=== PATIENT | female | born 1925 | race Caucasian/White ===

== ENCOUNTER 2016-11-17 13:00 | Inpatient (IN) | payer OTHER ==
[2016-11-17 13:07] VITALS: BMI 25.4
[2016-11-17] MEDS ORDERED: AZITHROMYCIN 500 MG VIAL IVPB ONE (13:15)
[2016-11-17] MEDS ORDERED: cefTRIAXone SODIUM 1 GM VIAL ONE (13:15)
[2016-11-17] MEDS ORDERED: CEFTRIAXONE 1 GM in DEXTROSE 5%-WATER - 100 ML IVPB ONE ×2 (13:23→13:27)
[2016-11-17] MEDS ORDERED: AZITHROMYCIN IVPB 500 MG in DEXTROSE 5%-WATER - 250 ML IVPB ONE (13:27)
--- NOTE | 2016-11-17 13:33 | PDOC ---
History of Present Illness - General Chief Complaint: Respiratory Stated Complaint: COUGH Time Seen by Provider: 11/17/16 13:09 History Source: Patient Exam Limitations: No Limitations - History of Present Illness Initial Comments: 11/17/16 13:28 89 y/o female presents with cough for 2 weeks. Patient has a PMHx of HTN and Hyperlipidemia states that she has had a cough for 2 weeks and worsening over the past week. Patient went to her PCP who prescribed her cough medication and nasal spray without relief. She went back to her PCP ( Dr. Laguna) this morning and was found to have B/L upper lobe infiltrates on CXR and she sent her to the ED for IV antibiotics. Patient currently complaining of shortness of breath that is worse with taking a deep breath. She denies fever, chills, chest pain, abdominal pain, n/v/d. Past History - Past Medical History Allergies/Adverse Reactions: Allergies Allergy/AdvReac Type Severity Reaction Status Date / Time No Known Allergies Allergy Verified 11/17/16 13:04 Home Medications: Ambulatory Orders Hydrochlorothiazide [Hctz -] 12.5 mg PO DAILY 11/17/16 Lovastatin [Altoprev] 40 mg PO DAILY 11/17/16 Olmesartan Medoxomil 20 mg PO DAILY 11/17/16 HTN: Yes Hypercholesterolemia: Yes - Psycho/Social/Smoking Cessation Hx Suicidal Ideation: No Smoking History: Never smoked Information on smoking cessation initiated: No Hx Alcohol Use: (nightly) Respiratory Specific PMHX - Complaint Specific PMHX Bronchitis: No Pneumonia: No Pulmonary Embolus: No TB (Tuberculosis): No Review of Systems - Review of Systems Constitutional: Yes: Weakness. No: Chills, Fever HEENTM: No: Blurred Vision, Double Vision Respiratory: Yes: Shortness of Breath Cardiac (ROS): No: Chest Pain, Lightheadedness, Syncope ABD/GI: No: Diarrhea, Nausea, Vomiting Musculoskeletal: No: Muscle Weakness Neurological: No: Headache, Unsteady Gait, Dizziness Psychiatric: No: Depression Hematologic/Lymphatic: No: Easy Bruising *Physical Exam - Vital Signs Last Vital Signs Temp Pulse Resp BP Pulse Ox 98.4 F 94 H 20 143/74 92 L 11/17/16 13:00 11/17/16 13:00 11/17/16 13:00 11/17/16 13:00 11/17/16 13:00 - Physical Exam General Appearance: Yes: Appropriately Dressed, Other (weak) HEENT: positive: EOMI, MANPREET, Normal ENT Inspection Neck: positive: Trachea midline, Supple Respiratory/Chest: positive: Decreased Breath Sounds, Crackles (upper lobes (R>L )). negative: Respiratory Distress, Accessory Muscle Use Cardiovascular: positive: Regular Rhythm, Regular Rate Lymphatic: negative: Adenopathy Musculoskeletal: positive: Normal Inspection Extremity: positive: Normal Capillary Refill Integumentary: positive: Normal Color, Dry, Warm Neurologic: positive: axle bearing polisher II-XII NML intact, Fully Oriented, Alert, Normal Mood/ Affect, Normal Response, Motor Strength 08/22 ED Treatment Course - LABORATORY CBC & Chemistry Diagram: 11/17/16 13:41 11/17/16 13:41 - RADIOLOGY Radiology Studies Ordered: Category Date Time Status CHEST PA & LAT [RAD] Stat Radiology 11/17/16 13:21 Ordered Medical Decision Making - Medical Decision Making 11/17/16 13:36 89 y/o with cough x 2 weeks sent by PCP Dr. Laguna for B/L upper lobe infiltrates on CXR in office this am CBC, CMP, PT/INR, Blood culture, ua, urine culture, EKG, CXR IV Rocephin 1 gm and Zithromax 500mg IV fluids Admit for infiltrates. r/o pneumonia 11/17/16 13:39 *DC/Admit/Observation/Transfer Diagnosis at time of Disposition: Pneumonia Qualifiers: Pneumonia type: due to unspecified organism Laterality: bilateral Lung location : upper lobe of lung Qualified Code(s): J18.9 - Pneumonia, unspecified organism - Discharge Dispostion Condition at time of disposition: Improved Admit: Yes - Referrals Referrals: Gene Camarena MD [Primary Care Provider] -
[2016-11-17 14:03] LABS: MCH 32.2 pg (25.7-33.7); MCHC 35.2 g/dl (32.0-36.0); MEAN CELL VOLUME 91.3 fl (80-96); MEAN PLT VOLUME 8.2 fl (7.5-11.1); PLATELET COUNT 306 K/MM3 (134-434); RDW 12.8 % (11.6-15.6); WHITE BLOOD COUNT 8.8 K/mm3 (4.0-10.8)
[2016-11-17 14:20] LABS: INR 1.31 (0.82-1.09); PROTHROMBIN TIME (PATIENT) 14.6 SEC (10.2-13.0)
[2016-11-17 14:25] LABS: ALBUMIN 2.5 g/dl (3.5-5.0); ALK PHOS 91 U/L (32-92); ANION GAP 12 (8-16); BILIRUBIN,TOTAL 1.1 mg/dl (0.2-1.0); CALCIUM 8.3 mg/dl (8.4-10.2); CO2 21 mmol/L (22-28); CREATININE 0.5 mg/dl (0.6-1.3); GLUCOSE,RANDOM 181 mg/dl (74-106); SGOT/AST 40 U/L (10-42); SGPT/ALT 45 U/L (10-40); TOT PROT 5.6 g/dl (6.4-8.3)
[2016-11-17 16:15] LABS: PH,URINE 6.5 (4.5-8); URINE APPEARANCE Clear; URINE BILIRUBIN Negative (NEGATIVE); URINE BLOOD 2+ (NEGATIVE); URINE COLOR YELLOW; URINE GLUCOSE (UA) Negative (NEGATIVE); URINE KETONE Negative (NEGATIVE); URINE LEUK ESTERASE Negative (NEGATIVE); URINE NITRITE Negative (NEGATIVE); URINE PROTEIN 2+ (NEGATIVE); URINE UROBILINOGEN >=8.0 E.U./dl (0.2-1.0)
[2016-11-17] MEDS ORDERED: SODIUM CHLORIDE 1,000 ML IV ONE (18:15)
[2016-11-17] MEDS ORDERED: POTASSIUM CHLORIDE TABS 20 MEQ TABLET.ER (FP) PO ONE (20:01)
[2016-11-17 20:11] LABS: ANION GAP 11 (8-16); CO2 22 mmol/L (22-28); CREATININE 0.5 mg/dl (0.6-1.3); GLUCOSE,RANDOM 150 mg/dl (74-106)
[2016-11-17] MEDS ORDERED: ACETAMINOPHEN 325 MG TABLET (FP) PO ONE (20:24)
--- NOTE | 2016-11-17 21:50 | HP ---
CHIEF COMPLAINT: cough PCP: Dr. Camarena HISTORY OF PRESENT ILLNESS: This is an 89 year old female with a past medical history of HTN and HLD who presented to [facility] ED from her PCP office with cough x 2 weeks. Seen by PCP last week, started on robitussin but continued to worsen. Pt developed diarrhea today and was feeling more weak so she went back to her PCP who did an xray and diagnosed her with B/L PNA and sent her to the ED. Pt reports feeling better at the time of her exam. Her weakness has improved. Pt denies drinking large quantities of water recently but does report not sleeping well and she has not been taking her medications regularly for the past 3-4 days. Her last week. She had been caring for him at home. Pt does report that she "always has a cough" but this has been worse. ER course was notable for: (1) Hyponatremia- sodium 115 (2) WBC WNL (3) CXR c/w B/L upper lobe PNA Recent Travel: pt denies PAST MEDICAL HISTORY: HTN HLD PAST SURGICAL HISTORY: pt denies Social History: Smoking: pt denies Alcohol: pt denies Drugs: pt denies Family History: mom age 104, complications following hip fracture father age 82, prostate and bladder CA brother in his 70s, unknown type of CA Allergies No Known Allergies Allergy (Verified 11/17/16 13:04) HOME MEDICATIONS: 3 Medication Instructions Recorded Hydrochlorothiazide [Hctz -] 12.5 mg PO DAILY 11/17/16 Lovastatin [Altoprev] 40 mg PO DAILY 11/17/16 Olmesartan Medoxomil 20 mg PO DAILY 11/17/16 REVIEW OF SYSTEMS CONSTITUTIONAL: Present: generalized weakness, malaise, loss of appetite Absent: fever, chills, diaphoresis, weight change HEENT: Absent: rhinorrhea, nasal congestion, throat pain, throat swelling, difficulty swallowing, mouth swelling, ear pain, eye pain, visual changes CARDIOVASCULAR: Absent: chest pain, syncope, palpitations, irregular heart rate, lightheadedness , peripheral edema RESPIRATORY: Present: cough, shortness of breath Absent: dyspnea with exertion, orthopnea, wheezing, stridor, hemoptysis GASTROINTESTINAL: Absent: abdominal pain, abdominal distension, nausea, vomiting, diarrhea, constipation, melena, hematochezia GENITOURINARY: Absent: dysuria, frequency, urgency, hesitancy, hematuria, flank pain, genital pain MUSCULOSKELETAL: Absent: myalgia, arthralgia, joint swelling, back pain, neck pain SKIN: Absent: rash, itching, pallor HEMATOLOGIC/IMMUNOLOGIC: Absent: easy bleeding, easy bruising, lymphadenopathy, frequent infections ENDOCRINE: Absent: unexplained weight gain, unexplained weight loss, heat intolerance, cold intolerance NEUROLOGIC: Absent: headache, focal weakness or paresthesias, dizziness, unsteady gait, seizure, mental status changes, bladder or bowel incontinence PSYCHIATRIC: Absent: anxiety, depression, suicidal or homicidal ideation, hallucinations. PHYSICAL EXAMINATION Vital Signs - 24 hr 3 11/17/16 11/17/16 11/17/16 11/17/16 13:00 13:05 17:01 20:36 Temperature 98.4 F 99.6 F 99.6 F Pulse Rate 94 H 71 71 80 Respiratory 20 17 17 Rate Blood Pressure 143/74 133/65 133/65 O2 Sat by Pulse 92 L 97 97 Oximetry (%) GENERAL: Awake, alert, and fully oriented, in no acute distress. HEAD: Normal with no signs of trauma. EYES: Pupils equal, round and reactive to light, extraocular movements intact, sclera anicteric, conjunctiva clear. No lid lag. EARS, NOSE, THROAT: Ears normal, nares patent, oropharynx clear without exudates. Moist mucous membranes. NECK: Normal range of motion, supple without lymphadenopathy, JVD, or masses. LUNGS: Breath sounds equal, scattered crackles bilaterally, clear with cough. No wheezes. No accessory muscle use. HEART: Regular rate and rhythm, normal S1 and S2 without murmur, rub or gallop. ABDOMEN: Soft, nontender, not distended, normoactive bowel sounds, no guarding, no rebound, no masses. No hepatomegaly or splenomegaly. MUSCULOSKELETAL: Normal range of motion at all joints. No bony deformities or tenderness. No CVA tenderness. UPPER EXTREMITIES: 2+ pulses, warm, well-perfused. No cyanosis. No clubbing. No peripheral edema. LOWER EXTREMITIES: 2+ pulses, warm, well-perfused. No calf tenderness. No peripheral edema. NEUROLOGICAL: Cranial nerves II-XII intact. Normal speech. Normal gait. PSYCHIATRIC: Cooperative. Good eye contact. Appropriate mood and affect. SKIN: Warm, dry, normal turgor, no rashes or lesions noted, normal capillary refill. Laboratory Results - last 24 hr 3 11/17/16 11/17/16 11/17/16 13:41 13:41 13:41 WBC 8.8 RBC 3.53 L Hgb 11.4 Hct 32.2 L MCV 91.3 MCH 32.2 MCHC 35.2 RDW 12.8 Plt Count 306 MPV 8.2 Neutrophils % 63.0 Lymphocytes % 5.0 L Monocytes % 5.0 Band Neutrophils 27.0 H Platelet Estimate Adequate INR 1.31 H Sodium 115 L* Potassium 3.4 L Chloride 82 L Carbon Dioxide 21 L Anion Gap 12 BUN 8 Creatinine 0.5 L Creat Clearance w eGFR > 60 Random Glucose 181 H Calcium 8.3 L Total Bilirubin 1.1 H AST 40 ALT 45 H Alkaline Phosphatase 91 Total Protein 5.6 L Albumin 2.5 L Urine Color Urine Appearance Urine pH Ur Specific [place] Urine Protein Urine Glucose (UA) Urine Ketones Urine Blood Urine Nitrite Urine Bilirubin Urine Urobilinogen Ur Leukocyte Esterase Urine RBC Urine WBC Urine Bacteria Urine Osmolality Urine Creatinine 3 11/17/16 11/17/16 11/17/16 14:55 19:00 19:40 WBC RBC Hgb Hct MCV MCH MCHC RDW Plt Count MPV Neutrophils % Lymphocytes % Monocytes % Band Neutrophils Platelet Estimate INR Sodium 120 L* Potassium 3.4 L Chloride 87 L Carbon Dioxide 22 Anion Gap 11 BUN 8 Creatinine 0.5 L Creat Clearance w eGFR Random Glucose 150 H Calcium 8.0 L Total Bilirubin AST ALT Alkaline Phosphatase Total Protein Albumin Urine Color Yellow Urine Appearance Clear Urine pH 6.5 Ur Specific [place] 1.015 Urine Protein 2+ H Urine Glucose (UA) Negative Urine Ketones Negative Urine Blood 2+ Urine Nitrite Negative Urine Bilirubin Negative Urine Urobilinogen >=8.0 e.u./dl H Ur Leukocyte Esterase Negative Urine RBC 10-20 Urine WBC 0-2 Urine Bacteria Few Urine Osmolality 218 L Urine Creatinine Radiology Results CHEST PA LAT Chest: Cough Imaging reveals patchy bilateral infiltrates with some atelectasis. There is a prominent mediastinum with unfolded aorta. The is blunting of the right angle. Soft tissues are intact. The degenerative changes with wedging. There are no prior studies for comparison. If findings do not resolve then further imaging with CT is suggested. Impression: Patchy bilateral infiltrates with atelectasis. Reported By: Kirt Lainez MD 11/17/16 1451 ECG Sinus rhythm with PACs, rate 91 QTC 472 LBB ASSESSMENT/PLAN: 89yF with PMH HTN, HLD presented to the ED from her PCP office with B/L PNA. She has been admitted for same. PNA-community acquired - cont azithromycin and ceftriaxone - CT chest ordered - urine for legionella ordered given hyponatremia - pulm consult if not improving. Hyponatremia - DW Dr. Whitley, renal consult appreciated - repeat with sodium of 120, but pt only received 500cc NS, will dc IVF for now, repeat in 3 hours, if same start NS 35cc/hr and repeat at 1am and 4am and adjust IVF accordingly - DC HCTZ - ? SIADH due to recent emotional stress and PNA, will obtain urine sodium, creatinine, osmolality, serum osmolality - 800cc fluid restriction - recommended transfer to [facility] for ICU monitoring, pt declines at this time. HTN - cont olmesartan HLD - home lovastatin 40mg changed to formulary lipitor 10mg as per protocol FEN - NS @ 35 cc/hr - BMP 10pm, 1am, 4am - regular diet as tolerated. DVT PPX - Heparin 5000u BID Dispo: pt currently requires inpatient management of her emergent condition. Addendum: 4AM 1am lab value reported from lab: 127. D/C NS, start D5W @50cc/hr, repeat lab drawn and sent to [facility]. Pt alert, oriented, fully conversant and moving all extremities. 524AM Sodium 130. DW renal, increase D5W at 125cc/hr. Pt agrees to transfer to ICU at [place]. Called Myrna, ICU shoe maker [employer] who accepts pt. Daughter Noah made aware of transfer. Visit type - Emergency Visit Emergency Visit: Yes ED Registration Date: 11/17/16 Care time: The patient presented to the Emergency Department on the above date and was hospitalized for further evaluation of their emergent condition. - New Patient This patient is new to me today: Yes Date on this admission: 11/17/16 - Critical Care Critical Care patient: No
[2016-11-17 21:58] LABS: URINE BACTERIA FEW /hpf (NEGATIVE); URINE WBC 0-2 (3-5)
[2016-11-17] MEDS: HEPARIN NA (PORCINE) 5,000 UNITS/ML 1ML VIAL SQ SCH (22:45)
[2016-11-17 22:48] LABS: ANION GAP 11 (8-16); CO2 22 mmol/L (22-28); CREATININE 0.6 mg/dl (0.6-1.3); GLUCOSE,RANDOM 159 mg/dl (74-106)
[2016-11-17] MEDS ORDERED: SODIUM CHLORIDE 1,000 ML IV SCH (23:15)
[2016-11-17 23:39] LABS: PLATELET ESTIMATE ADEQUATE (NORMAL)
[2016-11-18 03:46] LABS: ANION GAP 10 (8-16); CO2 25 mmol/L (21-32); CREATININE 0.6 mg/dL (0.55-1.02); GLUCOSE,RANDOM 111 mg/dL (74-106)
[2016-11-18] MEDS ORDERED: DEXTROSE 5%-WATER - 1,000 ML IV SCH ×5 (04:30→19:00)
[2016-11-18 05:12] LABS: ANION GAP 10 (8-16); CALCIUM 8.2 mg/dL (8.5-10.1); CO2 28 mmol/L (21-32); CREATININE 0.6 mg/dL (0.55-1.02); GLUCOSE,RANDOM 109 mg/dL (74-106)
[2016-11-18 08:49] LABS: ANION GAP 10 (8-16); CALCIUM 8.1 mg/dl (8.4-10.2); CO2 23 mmol/L (22-28); CREATININE 0.6 mg/dl (0.6-1.3); GLUCOSE,RANDOM 125 mg/dl (74-106)
[2016-11-18 09:39] LABS: ANION GAP 10 (8-16); CALCIUM 8.1 mg/dL (8.5-10.1); CO2 25 mmol/L (21-32); GLUCOSE,RANDOM 108 mg/dL (74-106)
[2016-11-18 09:40] LABS: CREATININE 0.6 mg/dL (0.55-1.02)
[2016-11-18] MEDS ORDERED: CEFTRIAXONE 50 ML IVPB SCH (10:00)
[2016-11-18] MEDS ORDERED: VALSARTAN 160 MG TABLET (UD) PO SCH (10:00)
[2016-11-18] MEDS ORDERED: ATORVASTATIN CA 10 MG TABLET (FP) PO SCH (10:00)
[2016-11-18] MEDS ORDERED: AZITHROMYCIN IVPB 250 ML IVPB SCH (10:00)
[2016-11-18] MEDS: MUPIROCIN 2% TOPICAL OINTMENT FOR DECOLONIZATION NS SCH ×2 (10:06→21:25)
[2016-11-18] MEDS: HEPARIN NA (PORCINE) 5,000 UNITS/ML 1ML VIAL SQ SCH ×2 (10:06→21:23)
[2016-11-18 12:23] LABS: BASOPHIL 0.2 % (0-2.0); EOSINOPHIL 0.2 % (0-4.5); MCHC 35.1 g/dl (32.0-36.0); MEAN PLT VOLUME 7.8 fl (7.5-11.1); PLATELET COUNT 328 K/MM3 (134-434); RDW 13.6 % (11.6-15.6); WHITE BLOOD COUNT 11.3 K/mm3 (4.0-10.0)
--- NOTE | 2016-11-18 13:17 | PN ---
<Bladimir Solares - Last Filed: 11/18/16 13:35> Physical Exam: SUBJECTIVE: Patient seen and examined OBJECTIVE: Vital Signs Period Temp Pulse Resp BP Sys/Argueta Pulse Ox Last 24 Hr 98.2 F-99.6 F 72-86 117-162/53-91 97 GENERAL: The patient is awake, alert, and fully oriented, in no acute distress. HEAD: Normal with no signs of trauma. EYES: PERRL, extraocular movements intact, sclera anicteric, conjunctiva clear. No ptosis. ENT: Ears normal, nares patent, oropharynx clear without exudates, moist mucous membranes. NECK: Trachea midline, full range of motion, supple. LUNGS: Breath sounds equal, clear to auscultation bilaterally, no wheezes, no crackles, no accessory muscle use. HEART: Regular rate and rhythm, S1, S2 without murmur, rub or gallop. ABDOMEN: Soft, nontender, nondistended, normoactive bowel sounds, no guarding, no rebound, no hepatosplenomegaly, no masses. EXTREMITIES: 2+ pulses, warm, well-perfused, no edema. NEUROLOGICAL: Cranial nerves II through XII grossly intact. Normal speech, gait not observed. PSYCH: Normal mood, normal affect. SKIN: Warm, dry, normal turgor, no rashes or lesions noted Laboratory Results - last 24 hr 11/17/16 11/17/16 11/17/16 19:00 19:40 22:00 WBC RBC Hgb Hct MCV MCH MCHC RDW Plt Count MPV Neutrophils % Lymphocytes % Monocytes % Eosinophils % Basophils % Sodium 120 L* Potassium 3.4 L Chloride 87 L Carbon Dioxide 22 Anion Gap 11 BUN 8 Creatinine 0.5 L Random Glucose 150 H Serum Osmolality Calcium 8.0 L Urine Osmolality 218 L Urine Creatinine 32.7 11/17/16 11/17/16 11/18/16 22:30 23:30 00:55 WBC RBC Hgb Hct MCV MCH MCHC RDW Plt Count MPV Neutrophils % Lymphocytes % Monocytes % Eosinophils % Basophils % Sodium 120 L* 127 L Potassium 3.5 3.9 Chloride 87 L 92 L Carbon Dioxide 22 25 Anion Gap 11 10 BUN 9 8 Creatinine 0.6 0.6 Random Glucose 159 H 111 H Serum Osmolality 252 L Calcium 8.0 L 8.0 L Urine Osmolality Urine Creatinine 11/18/16 11/18/16 11/18/16 04:28 06:30 06:50 WBC RBC Hgb Hct MCV MCH MCHC RDW Plt Count MPV Neutrophils % Lymphocytes % Monocytes % Eosinophils % Basophils % Sodium 130 L 128 L 129 L Potassium 4.2 3.7 3.7 Chloride 92 L 95 L 94 L Carbon Dioxide 28 23 25 Anion Gap 10 10 10 BUN 8 9 8 Creatinine 0.6 0.6 0.6 Random Glucose 109 H 125 H D 108 H Serum Osmolality Calcium 8.2 L 8.1 L 8.1 L Urine Osmolality Urine Creatinine 11/18/16 11/18/16 11:00 12:00 WBC 11.3 H RBC 3.32 L Hgb 10.6 L Hct 30.2 L MCV 91.0 MCH 32.0 MCHC 35.1 RDW 13.6 Plt Count 328 MPV 7.8 Neutrophils % 86.0 H Lymphocytes % 5.0 L Monocytes % 8.6 Eosinophils % 0.2 Basophils % 0.2 Sodium 128 L Potassium Chloride Carbon Dioxide Anion Gap BUN Creatinine Random Glucose Serum Osmolality Calcium Urine Osmolality Urine Creatinine Active Medications Generic Name Dose Route Start Last Admin Trade Name Freq PRN Reason Stop Dose Admin Atorvastatin Calcium 10 mg 11/19/16 22:00 Lipitor - PO HS [facility] Chlorhexidine Gluconate 1 applic 11/18/16 22:00 Hibiclens For Decolonization - TP HS [facility] Heparin Sodium (Porcine) 5,000 unit 11/18/16 22:00 Heparin - SQ BID [facility] Azithromycin 250 mls @ 250 mls/hr 11/19/16 10:00 Zithromax 500mg Ivpb (Pre-Docked) IVPB DAILY [facility] Ceftriaxone Sodium 50 mls @ 100 mls/hr 11/19/16 10:00 Rocephin 1gm Ivpb (Pre-Docked) IVPB DAILY [facility] Dextrose 1,000 mls @ 100 mls/hr 11/18/16 13:08 D5w - IV ASDIR [facility] Mupirocin 1 applic 11/18/16 10:00 11/18/16 10:06 Bactroban Ointment (For Decolonization) - NS 11/23/16 09:59 1 applic BID [facility] Administration Valsartan 160 mg 11/19/16 10:00 Diovan - PO DAILY [facility] ASSESSMENT/PLAN: <Nash Marquez - Last Filed: 11/18/16 18:14> Physical Exam: SUBJECTIVE: Patient seen and examined at bedside. Pt has no complaints at all. States she feels very well now. Pt admits to having had cough (unclear if productive of sputum), and nonbloody diarrhea (unclear what quantity) prior to visiting her PCP. Pt denies headache, cp, sob, abd pain, nausea, vomiting dysuria, rash. OBJECTIVE: Vital Signs Period Temp Pulse Resp BP Sys/Argueta Pulse Ox Last 24 Hr 98.2 F-99.6 F 72-86 117-162/53-91 97 GENERAL: The patient is awake, alert, and fully oriented, in no acute distress. HEAD: Normal with no signs of trauma. EYES: PERRL, extraocular movements intact, sclera anicteric, conjunctiva clear. No ptosis. ENT: oropharynx clear without exudates, moist mucous membranes. Dry lips NECK: Trachea midline, full range of motion, supple. LUNGS: Breath sounds equal, clear to auscultation bilaterally, no wheezes, no crackles, no accessory muscle use. HEART: Regular rate and rhythm, S1, S2 without murmur, rub or gallop. ABDOMEN: Soft, nontender, nondistended, normoactive bowel sounds, no guarding, no rebound, no hepatosplenomegaly, no masses. EXTREMITIES: 2+ pulses, warm, well-perfused, no edema. dry axillae NEUROLOGICAL: Cranial nerves II through XII grossly intact. Normal speech, gait not observed. strength 5/5 throughout, sensation intact throughout, reflexes 2+ throughout PSYCH: Normal mood, normal affect. SKIN: Warm, dry, normal turgor, no rashes or lesions noted Laboratory Results - last 24 hr 11/17/16 11/17/16 11/17/16 19:00 19:40 22:00 WBC RBC Hgb Hct MCV MCH MCHC RDW Plt Count MPV Neutrophils % Lymphocytes % Monocytes % Eosinophils % Basophils % Sodium 120 L* Potassium 3.4 L Chloride 87 L Carbon Dioxide 22 Anion Gap 11 BUN 8 Creatinine 0.5 L Random Glucose 150 H Serum Osmolality Calcium 8.0 L Urine Osmolality 218 L Urine Creatinine 32.7 11/17/16 11/17/16 11/18/16 22:30 23:30 00:55 WBC RBC Hgb Hct MCV MCH MCHC RDW Plt Count MPV Neutrophils % Lymphocytes % Monocytes % Eosinophils % Basophils % Sodium 120 L* 127 L Potassium 3.5 3.9 Chloride 87 L 92 L Carbon Dioxide 22 25 Anion Gap 11 10 BUN 9 8 Creatinine 0.6 0.6 Random Glucose 159 H 111 H Serum Osmolality 252 L Calcium 8.0 L 8.0 L Urine Osmolality Urine Creatinine 11/18/16 11/18/16 11/18/16 04:28 06:30 06:50 WBC RBC Hgb Hct MCV MCH MCHC RDW Plt Count MPV Neutrophils % Lymphocytes % Monocytes % Eosinophils % Basophils % Sodium 130 L 128 L 129 L Potassium 4.2 3.7 3.7 Chloride 92 L 95 L 94 L Carbon Dioxide 28 23 25 Anion Gap 10 10 10 BUN 8 9 8 Creatinine 0.6 0.6 0.6 Random Glucose 109 H 125 H D 108 H Serum Osmolality Calcium 8.2 L 8.1 L 8.1 L Urine Osmolality Urine Creatinine 11/18/16 11/18/16 11:00 12:00 WBC 11.3 H RBC 3.32 L Hgb 10.6 L Hct 30.2 L MCV 91.0 MCH 32.0 MCHC 35.1 RDW 13.6 Plt Count 328 MPV 7.8 Neutrophils % 86.0 H Lymphocytes % 5.0 L Monocytes % 8.6 Eosinophils % 0.2 Basophils % 0.2 Sodium 128 L Potassium Chloride Carbon Dioxide Anion Gap BUN Creatinine Random Glucose Serum Osmolality Calcium Urine Osmolality Urine Creatinine Active Medications Generic Name Dose Route Start Last Admin Trade Name Freq PRN Reason Stop Dose Admin Atorvastatin Calcium 10 mg 11/19/16 10:00 Lipitor - PO DAILY [facility] Chlorhexidine Gluconate 1 applic 11/18/16 22:00 Hibiclens For Decolonization - TP HS [facility] Heparin Sodium (Porcine) 5,000 unit 11/18/16 22:00 Heparin - SQ BID [facility] Azithromycin 250 mls @ 250 mls/hr 11/19/16 10:00 Zithromax 500mg Ivpb (Pre-Docked) IVPB DAILY [facility] Ceftriaxone Sodium 50 mls @ 100 mls/hr 11/19/16 10:00 Rocephin 1gm Ivpb (Pre-Docked) IVPB DAILY [facility] Dextrose 1,000 mls @ 100 mls/hr 11/18/16 13:08 D5w - IV ASDIR [facility] Mupirocin 1 applic 11/18/16 10:00 11/18/16 10:06 Bactroban Ointment (For Decolonization) - NS 11/23/16 09:59 1 applic BID [facility] Administration Valsartan 160 mg 11/19/16 10:00 Diovan - PO DAILY [facility] ASSESSMENT/PLAN: This is an 89yF with PMH HTN, HLD presented to the ED from her PCP office with B /L PNA. She has been admitted for same. #PNA-community acquired - cont azithromycin and ceftriaxone - CT chest shows b/l PNA with mild mediastinal LAD - urine for legionella negative - pulm consult if not improving. Hyponatremia: likely volume down with dry lips and axillae in setting of decreased PO intake - DW Dr. Whitley, renal consult appreciated - DC HCTZ -replete fluids gradually #HTN - cont olmesartan #HLD - home lovastatin 40mg changed to formulary lipitor 10mg as per protocol #FEN - NS @ 35 cc/hr - monitor closely. Na level q4h - regular diet as tolerated. #DVT PPX - Heparin 5000u BID Visit type - Emergency Visit Emergency Visit: No - New Patient This patient is new to me today: No - Critical Care Critical Care patient: No - Discharge Referral Referred to [facility] Med P.C[facility] No
--- NOTE | 2016-11-18 13:45 | CONSULT ---
Consult Consult Specialty:: Nephrology Reason for Consultation:: hyponatremia - History of Present Illness Chief Complaint: cough History of Present Illness: Pt is an 89 year old female with pmhx of HTN and hyperlipidemia who presents to the ER complaining of cough for the last two weeks. She was found to have PNA and admitted for treatment. She was also found to be hyponatremic and I was called to evaluate her. She was on a thiazide diuretic however she says that she has not taken it for the last few days. She says she has not had much appetite and is not eating much. She recently lost her less than two weeks ago. She recieved about a total of 650 cc of saline and her sodium corrected rapidly. She was started on d5w to slow the rate of correction. She says she feels well. She denies headache or weakness. She also says that she had several episodes of diarrhea over the last few days. She says she feels much better today. - History Source History Provided By: Patient, Medical Record - Past Medical History Cardio/Vascular: Yes: HTN, Hyperlipdemia ...: No - Alcohol/Substance Use Hx Alcohol Use: Yes (nightly) - Smoking History Smoking history: Never smoked Home Medications - Allergies Allergies/Adverse Reactions: Allergies Allergy/AdvReac Type Severity Reaction Status Date / Time No Known Allergies Allergy Verified 11/17/16 13:04 - Home Medications Home Medications: Ambulatory Orders Hydrochlorothiazide [Hctz -] 12.5 mg PO DAILY 11/17/16 Lovastatin [Altoprev] 40 mg PO DAILY 11/17/16 Olmesartan Medoxomil 20 mg PO DAILY 11/17/16 Family Disease History - Family Disease History Family History: Denies Review of Systems - Review of Systems Constitutional: reports: Loss of Appetite HENT: reports: No Symptoms Neck: reports: No Symptoms Cardiovascular: reports: No Symptoms Respiratory: reports: Cough Gastrointestinal: reports: Diarrhea Genitourinary: reports: No Symptoms Musculoskeletal: reports: No Symptoms Integumentary: reports: No Symptoms Neurological: reports: No Symptoms Endocrine: reports: No Symptoms Hematology/Lymphatic: reports: No Symptoms Psychiatric: reports: No Symptoms Physical Exam Vital Signs: Vital Signs Temperature 98.3 F 11/18/16 10:00 Pulse Rate 84 11/18/16 12:00 Respiratory Rate 17 11/18/16 12:00 Blood Pressure 134/83 08/01/17 12:00 O2 Sat by Pulse Oximetry (%) 97 11/17/16 20:36 Constitutional: Yes: Calm Eyes: Yes: Conjunctiva Clear HENT: Yes: Atraumatic Neck: Yes: Supple Cardiovascular: Yes: S1, S2 Respiratory: Yes: On Nasal O2 Gastrointestinal: Yes: Soft Renal/: Yes: WNL Extremities: Yes: WNL Edema: No Neurological: Yes: Oriented Psychiatric: Yes: Oriented Labs: CBC, BMP 11/18/16 12:00 11/18/16 11:00 Laboratory Tests 11/17/16 11/17/16 11/17/16 13:41 14:55 19:00 WBC Hgb Plt Count Sodium 115 L* Potassium Chloride Carbon Dioxide Anion Gap BUN Creatinine Serum Osmolality Urine Color Yellow Urine Appearance Clear Urine pH 6.5 Ur Specific [place] 1.015 Urine Protein 2+ H Urine Glucose (UA) Negative Urine Ketones Negative Urine Blood 2+ Urine Nitrite Negative Urine Osmolality 218 L 11/17/16 11/17/16 11/17/16 19:40 22:30 23:30 WBC Hgb Plt Count Sodium 120 L* 120 L* Potassium Chloride Carbon Dioxide Anion Gap BUN Creatinine Serum Osmolality 252 L Urine Color Urine Appearance Urine pH Ur Specific [place] Urine Protein Urine Glucose (UA) Urine Ketones Urine Blood Urine Nitrite Urine Osmolality 11/18/16 11/18/16 11/18/16 00:55 04:28 06:30 WBC Hgb Plt Count Sodium 127 L 130 L 128 L Potassium Chloride Carbon Dioxide Anion Gap BUN Creatinine Serum Osmolality Urine Color Urine Appearance Urine pH Ur Specific [place] Urine Protein Urine Glucose (UA) Urine Ketones Urine Blood Urine Nitrite Urine Osmolality 11/18/16 11/18/16 11/18/16 06:50 11:00 12:00 WBC 11.3 H Hgb 10.6 L Plt Count 328 Sodium 129 L 128 L Potassium 3.7 Chloride 94 L Carbon Dioxide 25 Anion Gap 10 BUN 8 Creatinine 0.6 Serum Osmolality Urine Color Urine Appearance Urine pH Ur Specific [place] Urine Protein Urine Glucose (UA) Urine Ketones Urine Blood Urine Nitrite Urine Osmolality Imaging - Results Chest X-ray: Report Reviewed Assessment/Plan Current Medications Generic Name Dose Route Start Last Admin Trade Name Freq PRN Reason Stop Dose Admin Atorvastatin Calcium 10 mg 11/19/16 22:00 Lipitor - PO HS DUDLEY Chlorhexidine Gluconate 1 applic 11/18/16 22:00 Hibiclens For Decolonization - TP HS DUDLEY Heparin Sodium (Porcine) 5,000 unit 11/18/16 22:00 Heparin - SQ BID DUDLEY Azithromycin 250 mls @ 250 mls/hr 11/19/16 10:00 Zithromax 500mg Ivpb (Pre-Docked) IVPB DAILY DUDLEY Ceftriaxone Sodium 50 mls @ 100 mls/hr 11/19/16 10:00 Rocephin 1gm Ivpb (Pre-Docked) IVPB DAILY DUDLEY Dextrose 1,000 mls @ 100 mls/hr 11/18/16 13:08 D5w - IV ASDIR DUDLEY Mupirocin 1 applic 11/18/16 10:00 11/18/16 10:06 Bactroban Ointment (For Decolonization) - NS 11/23/16 09:59 1 applic BID DUDLEY Administration Valsartan 160 mg 11/19/16 10:00 Diovan - PO DAILY DUDLEY Impression 1. hyponatremia 2. PNA 3. mediastinal lymphadenopathy 4. HTN 5. hyperlipidemia Plan - sodium is improving, switched to d5w to prevent rapid correction - repeat sodium level q 4 hours, goal is to have sodium at about 125 to 126 today - the change in sodium levels with last nights labs can not be explained by the saline given, it is simply not enough saline to increase sodium by that much. - recommend not restarting hctz - urine osm is lower than plasma osm, pt is autocorrecting. These findings are not consistent with SAIDH - follow urine sodium - check tsh and cortisol - likely hypovolemic hyponatremia - will follow - mediastinal lymphadenopathy should be followed - discussed with ICU team - discussed with medical attending - discussed with family at bedside Dr Whitley
--- NOTE | 2016-11-18 13:49 | PN ---
Teaching Attending Note Name of Resident: Nash Marquez ATTENDING PHYSICIAN STATEMENT I saw and evaluated the patient. I reviewed the resident's note and discussed the case with the resident. I agree with the resident's findings and plan as documented. SUBJECTIVE: denies any pain , admits to non productive cough , has no fever ro chills. denies dizziness, weakness ro change in vision OBJECTIVE: NAD , AAox3 HEENT: dry lips, no JVD , no LAP in neck CV: RRR, no JVD Lungs: b/l crackles mid lungs and down ABd : soft , NT, ND , NL BS Ext : no edema . dry axillae ASSESSMENT AND PLAN: 89 y/o lady with h/o HTN, and HLP who presented with cough and was found tohave b?l infiltrates and severe hyponatremia 1- Severe hypotonic hyponatremia: Likely due to hypovolemia from decreased po intake and being on HCTZ. AFter evaluating her volume status , she does look volume depleted ( dry MM and absence of axillary sweating ) . Unfortunately , we don't have Urine Na to further help identify the cause. SIADH is not likely due to improvement in her Na level with IVF, and due to hypovolemic state - check U NA , calculate FeNA . - NA has corrected quickly 15 meq/dl in 14 hours. cont D5W to avoid central pontine myelinolysis . Keep NA around 127-128 - check orthostatic VS ( got fluids already though ) 2- B/l CAP : no fever or leukocytosis - cont CTX and Azithro - follow urine legionela and Pneumococcal - add Mycoplasma igM Abs - follow blood cx 3- HTN: - cont to hold HCTZ. she should not resume it after dc - cont ARB form tomorrow 4- DVT PX CCT 40 min
--- NOTE | 2016-11-18 13:56 | PN ---
Teaching Attending Note Name of Resident: Destin Ramires ATTENDING PHYSICIAN STATEMENT I saw and evaluated the patient. I reviewed the resident's note and discussed the case with the resident. I agree with the resident's findings and plan as documented. SUBJECTIVE: Patient seen and examined in the ICU. In brief, 89 F with listed medical history. Admitted via the [facility] ER due to severe Hyponatremia and multi-lobar PNA. No travel history or sick contacts. No hemoptysis. Reports poor PO intake as her 2 weeks ago. Has not been taking her HCTZ for the past 4 days. CXR : Bilateral infiltrates/consolidation Intake & Output 11/15/16 11/16/16 11/17/16 11/18/16 23:59 23:59 23:59 23:59 Intake Total 1000 495 Output Total 500 400 Balance 500 95 Weight 130 lb Last Vital Signs Temp Pulse Resp BP Pulse Ox 98.3 F 84 17 134/83 97 11/18/16 10:00 11/18/16 12:00 11/18/16 12:00 11/18/16 12:00 11/17/16 20:36 Active Medications Atorvastatin Calcium (Lipitor -) 10 mg PO HS DUDLEY Chlorhexidine Gluconate (Hibiclens For Decolonization -) 1 applic TP HS DUDLEY Heparin Sodium (Porcine) (Heparin -) 5,000 unit SQ BID DUDLEY Azithromycin (Zithromax 500mg Ivpb (Pre-Docked)) 250 mls @ 250 mls/hr IVPB DAILY DUDLEY Ceftriaxone Sodium (Rocephin 1gm Ivpb (Pre-Docked)) 50 mls @ 100 mls/hr IVPB DAILY DUDLEY Dextrose (D5w -) 1,000 mls @ 125 mls/hr IV ASDIR DUDLEY Mupirocin (Bactroban Ointment (For Decolonization) -) 1 applic NS BID DUDLEY Stop: 11/23/16 09:59 Last Admin: 11/18/16 10:06 Dose: 1 applic Valsartan (Diovan -) 160 mg PO DAILY DUDLEY Constitutional: Yes: Awake and alert Eyes: Yes: Conjunctiva Clear HENT: Yes: Atraumatic Neck: Yes: Supple Cardiovascular: Yes: S1, S2 Respiratory: Yes: On Nasal O2, bilateral scattered rhonchi, no wheeze Gastrointestinal: Yes: Soft Renal/: Yes: WNL Extremities: Yes: WNL Edema: No Neurological: Yes: Oriented Psychiatric: Yes: Oriented Labs: Laboratory Results - last 24 hr 11/17/16 11/17/16 11/17/16 13:41 13:41 13:41 WBC 8.8 RBC 3.53 L Hgb 11.4 Hct 32.2 L MCV 91.3 MCH 32.2 MCHC 35.2 RDW 12.8 Plt Count 306 MPV 8.2 Neutrophils % 63.0 Lymphocytes % 5.0 L Monocytes % 5.0 Eosinophils % Basophils % Band Neutrophils 27.0 H Platelet Estimate Adequate INR 1.31 H Sodium 115 L* Potassium 3.4 L Chloride 82 L Carbon Dioxide 21 L Anion Gap 12 BUN 8 Creatinine 0.5 L Creat Clearance w eGFR > 60 Random Glucose 181 H Serum Osmolality Calcium 8.3 L Total Bilirubin 1.1 H AST 40 ALT 45 H Alkaline Phosphatase 91 Total Protein 5.6 L Albumin 2.5 L Urine Color Urine Appearance Urine pH Ur Specific [place] Urine Protein Urine Glucose (UA) Urine Ketones Urine Blood Urine Nitrite Urine Bilirubin Urine Urobilinogen Ur Leukocyte Esterase Urine RBC Urine WBC Urine Bacteria Urine Osmolality Urine Creatinine 11/17/16 11/17/16 11/17/16 14:55 19:00 19:40 WBC RBC Hgb Hct MCV MCH MCHC RDW Plt Count MPV Neutrophils % Lymphocytes % Monocytes % Eosinophils % Basophils % Band Neutrophils Platelet Estimate INR Sodium 120 L* Potassium 3.4 L Chloride 87 L Carbon Dioxide 22 Anion Gap 11 BUN 8 Creatinine 0.5 L Creat Clearance w eGFR Random Glucose 150 H Serum Osmolality Calcium 8.0 L Total Bilirubin AST ALT Alkaline Phosphatase Total Protein Albumin Urine Color Yellow Urine Appearance Clear Urine pH 6.5 Ur Specific [place] 1.015 Urine Protein 2+ H Urine Glucose (UA) Negative Urine Ketones Negative Urine Blood 2+ Urine Nitrite Negative Urine Bilirubin Negative Urine Urobilinogen >=8.0 e.u./dl H Ur Leukocyte Esterase Negative Urine RBC 10-20 Urine WBC 0-2 Urine Bacteria Few Urine Osmolality 218 L Urine Creatinine 11/17/16 11/17/16 11/17/16 22:00 22:30 23:30 WBC RBC Hgb Hct MCV MCH MCHC RDW Plt Count MPV Neutrophils % Lymphocytes % Monocytes % Eosinophils % Basophils % Band Neutrophils Platelet Estimate INR Sodium 120 L* Potassium 3.5 Chloride 87 L Carbon Dioxide 22 Anion Gap 11 BUN 9 Creatinine 0.6 Creat Clearance w eGFR Random Glucose 159 H Serum Osmolality 252 L Calcium 8.0 L Total Bilirubin AST ALT Alkaline Phosphatase Total Protein Albumin Urine Color Urine Appearance Urine pH Ur Specific [place] Urine Protein Urine Glucose (UA) Urine Ketones Urine Blood Urine Nitrite Urine Bilirubin Urine Urobilinogen Ur Leukocyte Esterase Urine RBC Urine WBC Urine Bacteria Urine Osmolality Urine Creatinine 32.7 11/18/16 11/18/16 11/18/16 00:55 04:28 06:30 WBC RBC Hgb Hct MCV MCH MCHC RDW Plt Count MPV Neutrophils % Lymphocytes % Monocytes % Eosinophils % Basophils % Band Neutrophils Platelet Estimate INR Sodium 127 L 130 L 128 L Potassium 3.9 4.2 3.7 Chloride 92 L 92 L 95 L Carbon Dioxide 25 28 23 Anion Gap 10 10 10 BUN 8 8 9 Creatinine 0.6 0.6 0.6 Creat Clearance w eGFR Random Glucose 111 H 109 H 125 H D Serum Osmolality Calcium 8.0 L 8.2 L 8.1 L Total Bilirubin AST ALT Alkaline Phosphatase Total Protein Albumin Urine Color Urine Appearance Urine pH Ur Specific [place] Urine Protein Urine Glucose (UA) Urine Ketones Urine Blood Urine Nitrite Urine Bilirubin Urine Urobilinogen Ur Leukocyte Esterase Urine RBC Urine WBC Urine Bacteria Urine Osmolality Urine Creatinine 11/18/16 11/18/16 11/18/16 06:50 11:00 12:00 WBC 11.3 H RBC 3.32 L Hgb 10.6 L Hct 30.2 L MCV 91.0 MCH 32.0 MCHC 35.1 RDW 13.6 Plt Count 328 MPV 7.8 Neutrophils % 86.0 H Lymphocytes % 5.0 L Monocytes % 8.6 Eosinophils % 0.2 Basophils % 0.2 Band Neutrophils Platelet Estimate INR Sodium 129 L 128 L Potassium 3.7 Chloride 94 L Carbon Dioxide 25 Anion Gap 10 BUN 8 Creatinine 0.6 Creat Clearance w eGFR Random Glucose 108 H Serum Osmolality Calcium 8.1 L Total Bilirubin AST ALT Alkaline Phosphatase Total Protein Albumin Urine Color Urine Appearance Urine pH Ur Specific [place] Urine Protein Urine Glucose (UA) Urine Ketones Urine Blood Urine Nitrite Urine Bilirubin Urine Urobilinogen Ur Leukocyte Esterase Urine RBC Urine WBC Urine Bacteria Urine Osmolality Urine Creatinine Impression Multi-lobar Severe Hyponatremia Mediastinal lymphadenopathy -> possibly reactive HTN HPL Plan ABX Follow cultures Daily Medrol for CAP Follow Na PO as tolerated Follow TFTs Will need to follow radiographic imaging for mediastinal lymphadenopathy Dr Hayes Critical Care Time/MDM Note Total Critical Care Time: 35 Critical Care Statement: The care of this patient involved high complexity decision making to prevent further life threatening deterioration of the patient 's condition and/or to evalute & treat vital organ system(s) failure or risk of failure.
--- NOTE | 2016-11-18 14:00 | EKG ---
Test Reason : Blood Pressure : / mmHG Vent. Rate : 091 BPM Atrial Rate : 091 BPM P-R Int : 184 ms QRS Dur : 134 ms QT Int : 384 ms P-R-T Axes : 049 -20 118 degrees QTc Int : 472 ms SINUS RHYTHM WITH PREMATURE ATRIAL COMPLEXES LEFT BUNDLE BRANCH BLOCK ABNORMAL ECG NO PREVIOUS ECGS AVAILABLE REPEAT EKG IF CLINICALLY INDICATED Confirmed by VINI BENITO MD ([id number] on 11/18/2016 1:59:50 PM Referred By: LAWSON Confirmed By:VINI BENITO MD
--- NOTE | 2016-11-18 14:23 | CONSULT ---
Consult Consult Specialty:: Critical Care Referred by:: ED Reason for Consultation:: Hyponatremia - History of Present Illness Chief Complaint: cough History of Present Illness: 89F with history of HTN and HLD presented to PMD office with cough for 2 weeks. patient was taking "cough medication" a week ago but did not get better. Had CXR done by PMD which showed PNA and sent patient to ED. She has not been taking her meds for 3 days. She denies nausea vomiting fevers chills chest pain or recent sick contacts. Denies large intake of water recently. Did develop diarrhea this morning. In the ED she was noted to have a sodium of 115. patient admitted to ICU for monitoring for severe hyponatremia. although patient is currently asymptomatic her sodium self corrected very quickly and she needs close monitoring. - History Source History Provided By: Patient, Significant Other, Medical Record Limitations to Obtaining History: Clinical Condition - Past Medical History Cardio/Vascular: Yes: HTN, Hyperlipdemia ...: No - Past Surgical History Past Surgical History: Yes: None (patient denies a surgical history ) - Alcohol/Substance Use Hx Alcohol Use: Yes (nightly) - Smoking History Smoking history: Never smoked Home Medications - Allergies Allergies/Adverse Reactions: Allergies Allergy/AdvReac Type Severity Reaction Status Date / Time No Known Allergies Allergy Verified 11/17/16 13:04 - Home Medications Home Medications: Ambulatory Orders Hydrochlorothiazide [Hctz -] 12.5 mg PO DAILY 11/17/16 Lovastatin [Altoprev] 40 mg PO DAILY 11/17/16 Olmesartan Medoxomil 20 mg PO DAILY 11/17/16 Review of Systems - Review of Systems Constitutional: reports: Loss of Appetite, Weakness Eyes: reports: No Symptoms HENT: reports: No Symptoms Neck: reports: No Symptoms Cardiovascular: reports: No Symptoms Respiratory: reports: Cough, SOB Gastrointestinal: reports: Diarrhea Genitourinary: reports: No Symptoms Breasts: reports: No Symptoms Reported Musculoskeletal: reports: No Symptoms Neurological: reports: No Symptoms Physical Exam Vital Signs: Vital Signs Temperature 98.3 F 11/18/16 10:00 Pulse Rate 84 11/18/16 12:00 Respiratory Rate 11/18/16 12:00 Blood Pressure 134/83 11/18/16 12:00 O2 Sat by Pulse Oximetry (%) 97 11/17/16 20:36 Constitutional: Yes: Well Nourished, No Distress, Calm Eyes: Yes: Conjunctiva Clear, EOM Intact HENT: Yes: Atraumatic, Normocephalic Neck: Yes: Supple, Trachea Midline Cardiovascular: Yes: Regular Rate and Rhythm Respiratory: Yes: Other (crackles bilaterally) Gastrointestinal: Yes: Normal Bowel Sounds, Soft Edema: No Integumentary: Yes: WNL Neurological: Yes: Alert, Oriented ...Motor Strength: WNL Psychiatric: Yes: Alert, Oriented Labs: CBC, BMP 11/18/16 12:00 11/18/16 11:00 Imaging - Results Chest X-ray: Report Reviewed, Image Reviewed Cat Scan: Report Reviewed, Image Reviewed Assessment/Plan 89F with history of hypertension and HLD presents to the ED with complaints of cough found to have a pneumonia and hyponatremia. Community acquired bilateral multilobar pneumonia: Admit to ICU continue ceftriaxone and azithromycin f/u urinary antigens-negative for legionella/strep antigens f/u BCx and UCx UA negative Hyponatremia:patient denies large volume of water intake. does endorse some poor oral intake recently. sodium is currently 128 continue D5W @ 100ml/hr unlikely the initial sodium was 115 as it came up to 120 after 500ml Normal Saline possibly a lab error. Sodium corrected out of proportion to the amount of normal saline given. continue to trend BMP Nephrology consult appreciated HTN continue diovan BP well controlled HLD: continue statin FEN: D5W @ 100ml/hr hyponatremia: see plan regular diet PPx: HSQ/SCDs no indication for GI PPx OOB to chair CCTime 35 min
[2016-11-18] MEDS: methylPREDNISolone NA SUCC 40 MG/1 ML VIAL IVPB SCH (17:06)
[2016-11-18 18:36] LABS: ANION GAP 11 (8-16); CALCIUM 7.8 mg/dL (8.5-10.1); CO2 29 mmol/L (21-32); GLUCOSE,RANDOM 148 mg/dL (74-106)
[2016-11-18 18:38] LABS: CREATININE 0.6 mg/dL (0.55-1.02)
--- NOTE | 2016-11-18 19:00 | PN ---
Progress Note (short form) - Note Progress Note: Laboratory Tests 11/18/16 16:30 Sodium 127 L Potassium 3.6 Chloride 87 L Carbon Dioxide 29 Anion Gap 11 BUN 10 D Creatinine 0.6 Cont with d5w, will decrease rate sodium level is at goal
[2016-11-18] MEDS ORDERED: CHLORHEXIDINE GLUCONATE 4% CLEANSER FOR DECOLONIZATION TP SCH (22:00)
[2016-11-18] MEDS ORDERED: CODEINE SO4 30 MG TABLET PO PRN (22:58)
[2016-11-19 06:39] LABS: MCH 31.4 pg (25.7-33.7); MCHC 34.1 g/dl (32.0-36.0); MEAN CELL VOLUME 92.1 fl (80-96); MEAN PLT VOLUME 7.7 fl (7.5-11.1); PLATELET COUNT 393 K/MM3 (134-434); RDW 13.4 % (11.6-15.6); WHITE BLOOD COUNT 11.5 K/mm3 (4.0-10.0)
[2016-11-19 06:53] LABS: ANION GAP 8 (8-16); CALCIUM 8.3 mg/dL (8.5-10.1); CO2 28 mmol/L (21-32); GLUCOSE,RANDOM 185 mg/dL (74-106); MAGNESIUM 2.1 mg/dL (1.8-2.4); SGOT/AST 91 U/L (15-37)
[2016-11-19 06:56] LABS: ALK PHOS 181 U/L (45-117); BILIRUBIN,TOTAL 0.2 mg/dL (0.2-1.0); CREATININE 0.6 mg/dL (0.55-1.02); SGPT/ALT 119 U/L (12-78); TOT PROT 5.7 g/dl (6.4-8.2)
[2016-11-19] MEDS ORDERED: BENZOCAINE/MENTH/CETYLPYRD CL 1 EACH LOZENGE MM PRN ×2 (08:22→18:12)
[2016-11-19] MEDS ORDERED: PT OWN MED DRAWER 7, Y5N ONE ×2 (08:58→09:29)
[2016-11-19] MEDS: methylPREDNISolone NA SUCC 40 MG/1 ML VIAL IVPB SCH (09:34)
[2016-11-19] MEDS: HEPARIN NA (PORCINE) 5,000 UNITS/ML 1ML VIAL SQ SCH ×2 (09:34→21:50)
[2016-11-19] MEDS: MUPIROCIN 2% TOPICAL OINTMENT FOR DECOLONIZATION NS SCH (09:35)
--- NOTE | 2016-11-19 09:43 | PN ---
Progress Note, Physician History of Present Illness: patient seen and examined at bedside feels well no complaints sodium decreased to 123 overnight IVF decreased now sodium is 128 - Current Medication List Current Medications: Active Medications Atorvastatin Calcium (Lipitor -) 10 mg PO [facility] Benzocaine/Menthol (Cepacol Lozenge -) 1 each MM PRN PRN PRN Reason: SORE THROAT Chlorhexidine Gluconate (Hibiclens For Decolonization -) 1 applic TP HS [facility] Last Admin: 11/18/16 21:23 Dose: 1 applic Codeine Sulfate (Codeine Sulfate -) 30 mg PO Q6H PRN PRN Reason: COUGH Last Admin: 11/18/16 23:07 Dose: 30 mg Heparin Sodium (Porcine) (Heparin -) 5,000 unit SQ BID [facility] Last Admin: 11/19/16 09:34 Dose: 5,000 unit Azithromycin (Zithromax 500mg Ivpb (Pre-Docked)) 250 mls @ 250 mls/hr IVPB DAILY [facility] Last Admin: 11/19/16 09:33 Dose: 250 mls/hr Ceftriaxone Sodium (Rocephin 1gm Ivpb (Pre-Docked)) 50 mls @ 100 mls/hr IVPB DAILY [facility] Last Admin: 11/19/16 09:33 Dose: 100 mls/hr Dextrose (D5w -) 1,000 mls @ 83 mls/hr IV ASDIR [facility] Last Admin: 11/18/16 20:00 Dose: 83 mls/hr Methylprednisolone Sodium Succinate (Solu-Medrol -) 40 mg IVPB DAILY [facility] Last Admin: 11/19/16 09:34 Dose: 40 mg Mupirocin (Bactroban Ointment (For Decolonization) -) 1 applic NS BID [facility] Stop: 11/23/16 09:59 Last Admin: 11/19/16 09:35 Dose: 1 applic Valsartan (Diovan -) 160 mg PO DAILY [facility] - Objective Vital Signs: Vital Signs Temperature 98.7 F 11/19/16 02:00 Pulse Rate 77 11/19/16 06:00 Respiratory Rate 18 11/19/16 08:34 Blood Pressure 145/79 11/19/16 06:00 O2 Sat by Pulse Oximetry (%) 95 11/19/16 08:34 Constitutional: Yes: Well Nourished, No Distress, Calm Eyes: Yes: Conjunctiva Clear, EOM Intact HENT: Yes: Atraumatic, Normocephalic Neck: Yes: Supple, Trachea Midline Cardiovascular: Yes: Regular Rate and Rhythm Respiratory: Yes: Other (crackles bilaterally) Gastrointestinal: Yes: Normal Bowel Sounds, Soft Edema: No Integumentary: Yes: WNL Neurological: Yes: Alert, Oriented ...Motor Strength: WNL Psychiatric: Yes: Alert, Oriented Labs: CBC, BMP 11/19/16 05:30 11/19/16 05:30 INR, PTT INR 1.31 (0.82-1.09) H 11/17/16 13:41 - ....Imaging Chest X-ray: Report Reviewed, Image Reviewed Assessment/Plan 89F with history of hypertension and HLD presents to the ED with complaints of cough found to have a pneumonia and hyponatremia. Community acquired bilateral multilobar pneumonia: Admit to ICU on ceftriaxone and azithromycin urinary antigens-negative for legionella/strep antigens f/u BCx and UCx-pending UA negative continue solu-medrol Transaminitis:could be medication induced statin VS ceftriaxone. could also be due to legionella pneumonia patient does have an old air conditioner at home. Will check direct bilirubin will trend LFTs Abdominal US check legionella serology even tho urine antigen was negative Hyponatremia:patient denies large volume of water intake. does endorse some poor oral intake recently. sodium is currently 128 continue D5W @ 83ml/hr adjust per nephrology continue to trend BMP Nephrology consult appreciated HTN continue diovan BP controlled Hyperglycemia:patient denies history of DM likely from steroids will check HbA1C HLD: continue statin FEN: D5W @ 83 ml/hr hyponatremia: see plan regular diet PPx: HSQ/SCDs no indication for GI PPx OOB to chair CCTime 35 min Transfer to med/surg
[2016-11-19] MEDS ORDERED: VALSARTAN 160 MG TABLET (UD) PO SCH (10:00)
[2016-11-19] MEDS ORDERED: CEFTRIAXONE 50 ML IVPB SCH (10:00)
[2016-11-19] MEDS ORDERED: AZITHROMYCIN IVPB 250 ML IVPB SCH (10:00)
--- NOTE | 2016-11-19 12:59 | PN ---
Teaching Attending Note Name of Resident: Nash Marquez ATTENDING PHYSICIAN STATEMENT I saw and evaluated the patient. I reviewed the resident's note and discussed the case with the resident. I agree with the resident's findings and plan as documented. SUBJECTIVE: Patient is feeling better, with no acute distress OBJECTIVE: Vital Signs Temperature 97.8 F 11/19/16 10:00 Pulse Rate 82 11/19/16 12:00 Respiratory Rate 18 11/19/16 12:00 Blood Pressure 129/63 11/19/16 12:00 O2 Sat by Pulse Oximetry (%) 95 11/19/16 08:34 CBCD WBC 11.5 K/mm3 (4.0-10.0) H 11/19/16 05:30 RBC 3.49 M/mm3 (3.60-5.2) L 11/19/16 05:30 Hgb 11.0 GM/dL (10.7-15.3) 11/19/16 05:30 Hct 32.1 % (32.4-45.2) L 11/19/16 05:30 MCV 92.1 fl (80-96) 11/19/16 05:30 MCHC 34.1 g/dl (32.0-36.0) 11/19/16 05:30 RDW 13.4 % (11.6-15.6) 11/19/16 05:30 Plt Count 393 K/MM3 (134-434) 11/19/16 05:30 MPV 7.7 fl (7.5-11.1) 11/19/16 05:30 CMP Sodium 128 mmol/L (136-145) L 11/19/16 05:30 Potassium 3.8 mmol/L (3.5-5.1) 11/19/16 05:30 Chloride 92 mmol/L (98-107) L 11/19/16 05:30 Carbon Dioxide 28 mmol/L (21-32) 11/19/16 05:30 Anion Gap 8 (8-16) 11/19/16 05:30 BUN 10 mg/dL (7-18) 11/19/16 05:30 Creatinine 0.6 mg/dL (0.55-1.02) 11/19/16 05:30 Creat Clearance w eGFR > 60 (>60) 11/19/16 05:30 Random Glucose 185 mg/dL (74-106) H D 11/19/16 05:30 Calcium 8.3 mg/dL (8.5-10.1) L 11/19/16 05:30 Total Bilirubin 0.2 mg/dL (0.2-1.0) 11/19/16 05:30 AST 91 U/L (15-37) H 11/19/16 05:30 ALT 119 U/L (12-78) H 11/19/16 05:30 Alkaline Phosphatase 181 U/L (45-117) H 11/19/16 05:30 Total Protein 5.7 g/dl (6.4-8.2) L 11/19/16 05:30 Albumin 2.0 g/dl (3.4-5.0) L 11/19/16 05:30 Current Medications Generic Name Dose Route Start Last Admin Trade Name Freq PRN Reason Stop Dose Admin Atorvastatin Calcium 10 mg 11/19/16 22:00 Lipitor - PO HS [facility] Benzocaine/Menthol 1 each 11/19/16 08:22 11/19/16 09:49 Cepacol Lozenge - MM 1 each PRN PRN Administration SORE THROAT Chlorhexidine Gluconate 1 applic 11/18/16 22:00 11/18/16 21:23 Hibiclens For Decolonization - TP 1 applic HS [facility] Administration Codeine Sulfate 30 mg 11/18/16 22:58 11/18/16 23:07 Codeine Sulfate - PO 30 mg Q6H PRN Administration COUGH Heparin Sodium (Porcine) 5,000 unit 11/18/16 22:00 11/19/16 09:34 Heparin - SQ 5,000 unit BID [facility] Administration Azithromycin 250 mls @ 250 mls/hr 11/19/16 10:00 11/19/16 09:33 Zithromax 500mg Ivpb (Pre-Docked) IVPB 250 mls/hr DAILY [facility] Administration Ceftriaxone Sodium 50 mls @ 100 mls/hr 11/19/16 10:00 11/19/16 09:33 Rocephin 1gm Ivpb (Pre-Docked) IVPB 100 mls/hr DAILY [facility] Administration Dextrose 1,000 mls @ 83 mls/hr 11/18/16 19:00 11/18/16 20:00 D5w - IV 83 mls/hr ASDIR [facility] Administration Methylprednisolone Sodium Succinate 40 mg 11/18/16 14:15 11/19/16 09:34 Solu-Medrol - IVPB 40 mg DAILY [facility] Administration Mupirocin 1 applic 11/18/16 10:00 11/19/16 09:35 Bactroban Ointment (For Decolonization) - NS 11/23/16 09:59 1 applic BID [facility] Administration Valsartan 160 mg 11/19/16 10:00 11/19/16 10:00 Diovan - PO Not Given DAILY [facility] Home Medications Medication Instructions Recorded Hydrochlorothiazide [Hctz -] 12.5 mg PO DAILY 11/17/16 Lovastatin [Altoprev] 40 mg PO DAILY 11/17/16 Olmesartan Medoxomil 20 mg PO DAILY 11/17/16 Azelastine HCl 2 puff IN BID 11/18/16 Benzonatate 100 mg PO TID 11/18/16 PE: CTA BC HEART: S1S2 positive HISTORY PROVIDED: Bilateral pneumonia TECHNIQUE: Sequential axial images were obtained from the thoracic inlet through the domes of the diaphragm. Evaluation of the lung luna demonstrates extensive consolidation within the posterior segment of the right upper lobe. Dense consolidation is also identified within the right lower lobe. The middle lobe is largely clear. Less extensive, patchy infiltrates are seen within the left upper and lower lobes. No pulmonary masses or pleural effusions are present. Examination of the mediastinum demonstrates prominent lymph nodes that include a 2.1 cm subcarinal node and a 1.5 cm precarinal node. The etiology and significance of this adenopathy is uncertain. There is no evidence of mediastinal masses or fluid collections. The heart is not significantly enlarged. Evaluation of the upper abdomen demonstrates no acute abnormalities. IMPRESSION: 1. Bilateral consolidation consistent with pneumonia. These changes are most pronounced within the right upper and lower lobes. Clinical correlation and follow-up recommended. 2. Mild mediastinal lymphadenopathy. Please see above discussion. ASSESSMENT AND PLAN: 89 y/o lady with h/o HTN, and HLP who presented with cough and was found tohave b?l infiltrates and severe hyponatremia # Bilateral consolidation consistent with pneumonia. on IV antibiotic continue On Rocephin and zithromax continue for now. Pending Legionella titer # Acute severe hyponatremia: Likely due to dehydration and on Diuretic will hold it for now, will continue IVF ,gentle hydration. Nephro is on the case. # HTN: Continue meds. Diovan , Hctz is on hold # Mild Leukocytosis: steroid vs pneumonia DVT PX : Heparin sq
--- NOTE | 2016-11-19 13:37 | PN ---
Physical Exam: SUBJECTIVE: Patient seen and examined at bedside. No acute events overnight. Pt has no complaints at this time. Denies dizziness, nausea, vomiting, headache, fever, chills, diarrhea, weakness. OBJECTIVE: Vital Signs Period Temp Pulse Resp BP Sys/Argueta Pulse Ox Last 24 Hr 97.8 F-98.7 F 73-87 15-21 111-145/48-79 95-95 GENERAL: The patient is awake, alert, and fully oriented, in no acute distress. HEAD: Normal with no signs of trauma. EYES: PERRL, extraocular movements intact, sclera anicteric, conjunctiva clear. No ptosis. ENT: oropharynx clear without exudates, moist mucous membranes. NECK: Trachea midline, full range of motion, supple. LUNGS: Breath sounds equal, clear to auscultation bilaterally, no wheezes, no crackles, no accessory muscle use. HEART: Regular rate and rhythm, normal S1, S2 without murmur, rub or gallop. ABDOMEN: Soft, nontender, nondistended, normoactive bowel sounds, no guarding, no rebound, no hepatosplenomegaly, no masses. EXTREMITIES: 2+ pulses, warm, well-perfused, no edema. NEUROLOGICAL: Cranial nerves II through XII grossly intact. Normal speech, gait not observed. Strength 5/5, sensation intact, reflexes 2+ throughout. PSYCH: Normal mood, normal affect. SKIN: Warm, dry, normal turgor, no rashes or lesions noted Laboratory Results - last 24 hr 11/18/16 11/18/16 11/18/16 16:30 17:30 21:00 WBC RBC Hgb Hct MCV MCH MCHC RDW Plt Count MPV Sodium 127 L 123 L* Potassium 3.6 Chloride 87 L Carbon Dioxide 29 Anion Gap 11 BUN 10 D Creatinine 0.6 Creat Clearance w eGFR Random Glucose 148 H D Calcium 7.8 L Phosphorus Magnesium Total Bilirubin AST ALT Alkaline Phosphatase Total Protein Albumin Ur Random Sodium 18 11/19/16 11/19/16 11/19/16 01:15 05:30 05:30 WBC 11.5 H RBC 3.49 L Hgb 11.0 Hct 32.1 L MCV 92.1 MCH 31.4 MCHC 34.1 RDW 13.4 Plt Count 393 MPV 7.7 Sodium 130 L 128 L Potassium 3.8 Chloride 92 L Carbon Dioxide 28 Anion Gap 8 BUN 10 Creatinine 0.6 Creat Clearance w eGFR > 60 Random Glucose 185 H D Calcium 8.3 L Phosphorus 3.0 Magnesium 2.1 Total Bilirubin 0.2 AST 91 H ALT 119 H Alkaline Phosphatase 181 H Total Protein 5.7 L Albumin 2.0 L Ur Random Sodium Active Medications Generic Name Dose Route Start Last Admin Trade Name Freq PRN Reason Stop Dose Admin Atorvastatin Calcium 10 mg 11/19/16 22:00 Lipitor - PO HS [facility] Benzocaine/Menthol 1 each 11/19/16 08:22 11/19/16 09:49 Cepacol Lozenge - MM 1 each PRN PRN Administration SORE THROAT Chlorhexidine Gluconate 1 applic 11/18/16 22:00 11/18/16 21:23 Hibiclens For Decolonization - TP 1 applic HS [facility] Administration Codeine Sulfate 30 mg 11/18/16 22:58 11/18/16 23:07 Codeine Sulfate - PO 30 mg Q6H PRN Administration COUGH Heparin Sodium (Porcine) 5,000 unit 11/18/16 22:00 11/19/16 09:34 Heparin - SQ 5,000 unit BID [facility] Administration Azithromycin 250 mls @ 250 mls/hr 11/19/16 10:00 11/19/16 09:33 Zithromax 500mg Ivpb (Pre-Docked) IVPB 250 mls/hr DAILY [facility] Administration Ceftriaxone Sodium 50 mls @ 100 mls/hr 11/19/16 10:00 11/19/16 09:33 Rocephin 1gm Ivpb (Pre-Docked) IVPB 100 mls/hr DAILY [facility] Administration Dextrose 1,000 mls @ 83 mls/hr 11/18/16 19:00 11/18/16 20:00 D5w - IV 83 mls/hr ASDIR [facility] Administration Methylprednisolone Sodium Succinate 40 mg 11/18/16 14:15 11/19/16 09:34 Solu-Medrol - IVPB 40 mg DAILY [facility] Administration Mupirocin 1 applic 11/18/16 10:00 11/19/16 09:35 Bactroban Ointment (For Decolonization) - NS 11/23/16 09:59 1 applic BID [facility] Administration Valsartan 160 mg 11/19/16 10:00 11/19/16 10:00 Diovan - PO Not Given DAILY [facility] ASSESSMENT/PLAN: This is an 89yF with PMH HTN, HLD presented to the ED from her PCP office with B /L PNA. She has been admitted for same. #PNA-community acquired - cont azithromycin and ceftriaxone - CT chest shows b/l PNA with mild mediastinal LAD - urine for legionella negative. Will follow titers - pulm consult if not improving #Hyponatremia: likely volume down with dry lips and axillae in setting of decreased PO intake - DW Dr. Whitley, renal consult appreciated - DC HCTZ -replete fluids gradually. pt on target for repletion #hyperglycemia -possibly 2/2 steroids -f/u A1c #HTN - cont olmesartan #HLD - home lovastatin 40mg changed to formulary lipitor 10mg as per protocol #FEN - D5W @ 35 cc/hr - monitor closely. Na level q4h - regular diet as tolerated. #DVT PPX - Heparin 5000u BID Visit type - Emergency Visit Emergency Visit: No - New Patient This patient is new to me today: No - Critical Care Critical Care patient: No - Discharge Referral Referred to [facility] Med P.C.: No
[2016-11-19 13:39] LABS: BILIRUBIN,DIRECT 0.1 mg/dL (0.0-0.2)
--- NOTE | 2016-11-19 13:39 | PN ---
Progress Note, Physician History of Present Illness: Pt seen and examined at bedside. She is awake and alert. She it tolerating diet. She denies headache or change in vision. - Current Medication List Current Medications: Active Medications Atorvastatin Calcium (Lipitor -) 10 mg PO HS [facility] Benzocaine/Menthol (Cepacol Lozenge -) 1 each MM PRN PRN PRN Reason: SORE THROAT Last Admin: 11/19/16 09:49 Dose: 1 each Chlorhexidine Gluconate (Hibiclens For Decolonization -) 1 applic TP HS [facility] Last Admin: 11/18/16 21:23 Dose: 1 applic Codeine Sulfate (Codeine Sulfate -) 30 mg PO Q6H PRN PRN Reason: COUGH Last Admin: 11/18/16 23:07 Dose: 30 mg Heparin Sodium (Porcine) (Heparin -) 5,000 unit SQ BID [facility] Last Admin: 11/19/16 09:34 Dose: 5,000 unit Azithromycin (Zithromax 500mg Ivpb (Pre-Docked)) 250 mls @ 250 mls/hr IVPB DAILY [facility] Last Admin: 11/19/16 09:33 Dose: 250 mls/hr Ceftriaxone Sodium (Rocephin 1gm Ivpb (Pre-Docked)) 50 mls @ 100 mls/hr IVPB DAILY [facility] Last Admin: 11/19/16 09:33 Dose: 100 mls/hr Dextrose (D5w -) 1,000 mls @ 83 mls/hr IV ASDIR [facility] Last Admin: 11/18/16 20:00 Dose: 83 mls/hr Methylprednisolone Sodium Succinate (Solu-Medrol -) 40 mg IVPB DAILY [facility] Last Admin: 11/19/16 09:34 Dose: 40 mg Mupirocin (Bactroban Ointment (For Decolonization) -) 1 applic NS BID [facility] Stop: 11/23/16 09:59 Last Admin: 11/19/16 09:35 Dose: 1 applic Valsartan (Diovan -) 160 mg PO DAILY [facility] Last Admin: 11/19/16 10:00 Dose: Not Given - Objective Vital Signs: Vital Signs Temperature 97.8 F 11/19/16 10:00 Pulse Rate 82 11/19/16 12:00 Respiratory Rate 18 11/19/16 12:00 Blood Pressure 129/63 11/19/16 12:00 O2 Sat by Pulse Oximetry (%) 95 11/19/16 08:34 Constitutional: Yes: Calm Eyes: Yes: Conjunctiva Clear HENT: Yes: Atraumatic Neck: Yes: Supple Cardiovascular: Yes: S1, S2 Respiratory: Yes: CTA Bilaterally Gastrointestinal: Yes: Soft Edema: No Neurological: Yes: Oriented Psychiatric: Yes: Oriented Labs: CBC, BMP 11/19/16 05:30 11/19/16 05:30 INR, PTT INR 1.31 (0.82-1.09) H 11/17/16 13:41 Assessment/Plan Current Medications Generic Name Dose Route Start Last Admin Trade Name Freq PRN Reason Stop Dose Admin Atorvastatin Calcium 10 mg 11/19/16 22:00 Lipitor - PO HS [facility] Benzocaine/Menthol 1 each 11/19/16 08:22 11/19/16 09:49 Cepacol Lozenge - MM 1 each PRN PRN Administration SORE THROAT Chlorhexidine Gluconate 1 applic 11/18/16 22:00 11/18/16 21:23 Hibiclens For Decolonization - TP 1 applic HS [facility] Administration Codeine Sulfate 30 mg 11/18/16 22:58 11/18/16 23:07 Codeine Sulfate - PO 30 mg Q6H PRN Administration COUGH Heparin Sodium (Porcine) 5,000 unit 11/18/16 22:00 11/19/16 09:34 Heparin - SQ 5,000 unit BID [facility] Administration Azithromycin 250 mls @ 250 mls/hr 11/19/16 10:00 11/19/16 09:33 Zithromax 500mg Ivpb (Pre-Docked) IVPB 250 mls/hr DAILY [facility] Administration Ceftriaxone Sodium 50 mls @ 100 mls/hr 11/19/16 10:00 11/19/16 09:33 Rocephin 1gm Ivpb (Pre-Docked) IVPB 100 mls/hr DAILY [facility] Administration Dextrose 1,000 mls @ 83 mls/hr 11/18/16 19:00 11/18/16 20:00 D5w - IV 83 mls/hr ASDIR [facility] Administration Methylprednisolone Sodium Succinate 40 mg 11/18/16 14:15 11/19/16 09:34 Solu-Medrol - IVPB 40 mg DAILY [facility] Administration Mupirocin 1 applic 11/18/16 10:00 11/19/16 09:35 Bactroban Ointment (For Decolonization) - NS 11/23/16 09:59 1 applic BID [facility] Administration Valsartan 160 mg 11/19/16 10:00 11/19/16 10:00 Diovan - PO Not Given DAILY [facility] Laboratory Tests 11/18/16 17:30 Ur Random Sodium 18 Impression 1. hyponatremia 2. PNA 3. mediastinal lymphadenopathy 4. HTN 5. hyperlipidemia Plan - sodium levels is stabilizing - can decrease d5w to 30 cc per hour - monitor sodium - cont regular diet - stopped fluid restriction - etiology of hyponatremia - hypovolemic hypotonic - recommend not restarting hctz - mediastinal lymphadenopathy should be followed Dr Whitley
[2016-11-19 14:01] LABS: ANION GAP 15 (8-16); CALCIUM 8.1 mg/dL (8.5-10.1); CO2 24 mmol/L (21-32); CREATININE 0.7 mg/dL (0.55-1.02)
[2016-11-19 14:15] LABS: GLUCOSE,RANDOM 345 mg/dL (74-106)
--- NOTE | 2016-11-19 15:06 | PN ---
Teaching Attending Note Name of Resident: Destin Ramires ATTENDING PHYSICIAN STATEMENT I saw and evaluated the patient. I reviewed the resident's note and discussed the case with the resident. I agree with the resident's findings and plan as documented. SUBJECTIVE: Pt seen and examined in the ICU. Feels better, +nonproductive cough. Sodium rising appropriately. OBJECTIVE: Last Vital Signs Temp Pulse Resp BP Pulse Ox 97.8 F 67 19 145/83 95 11/19/16 10:00 11/19/16 14:00 11/19/16 14:00 11/19/16 14:00 11/19/16 08:34 Intake & Output 11/16/16 11/17/16 11/18/16 11/19/16 23:59 23:59 23:59 23:59 Intake Total 1000 1995 1396 Output Total 500 1250 250 Balance 369 305 1505 Weight 130 lb 131 lb 9 oz Gen: NAD at rest Heart: RRR Lung: scattered rales Abd: soft, nontender Ext: no edema CBC, BMP 11/19/16 05:30 11/19/16 13:28 Active Medications Atorvastatin Calcium (Lipitor -) 10 mg PO HS [facility] Benzocaine/Menthol (Cepacol Lozenge -) 1 each MM PRN PRN PRN Reason: SORE THROAT Last Admin: 11/19/16 09:49 Dose: 1 each Chlorhexidine Gluconate (Hibiclens For Decolonization -) 1 applic TP HS [facility] Last Admin: 11/18/16 21:23 Dose: 1 applic Codeine Sulfate (Codeine Sulfate -) 30 mg PO Q6H PRN PRN Reason: COUGH Last Admin: 11/18/16 23:07 Dose: 30 mg Heparin Sodium (Porcine) (Heparin -) 5,000 unit SQ BID [facility] Last Admin: 11/19/16 09:34 Dose: 5,000 unit Azithromycin (Zithromax 500mg Ivpb (Pre-Docked)) 250 mls @ 250 mls/hr IVPB DAILY [facility] Last Admin: 11/19/16 09:33 Dose: 250 mls/hr Ceftriaxone Sodium (Rocephin 1gm Ivpb (Pre-Docked)) 50 mls @ 100 mls/hr IVPB DAILY [facility] Last Admin: 11/19/16 09:33 Dose: 100 mls/hr Dextrose (D5w -) 1,000 mls @ 35 mls/hr IV ASDIR [facility] Last Admin: 11/19/16 15:12 Dose: 35 mls/hr Methylprednisolone Sodium Succinate (Solu-Medrol -) 40 mg IVPB DAILY [facility] Last Admin: 11/19/16 09:34 Dose: 40 mg Mupirocin (Bactroban Ointment (For Decolonization) -) 1 applic NS BID [facility] Stop: 11/23/16 09:59 Last Admin: 11/19/16 09:35 Dose: 1 applic Valsartan (Diovan -) 160 mg PO DAILY [facility] Last Admin: 11/19/16 10:00 Dose: Not Given ASSESSMENT AND PLAN: Pneumonia r/o Legionnaires Hyponatremia Elevated LFTs HTN Hyperlipidemia - continue antibiotics - f/u cultures, serologies - IVF per renal - monitor sodium - outpt follow up of lymphadenopathy - DVT prophylaxis
[2016-11-19] MEDS: DEXTROSE 5%-WATER - 1,000 ML IV SCH ×2 (15:12→21:50)
[2016-11-19] MEDS ORDERED: CODEINE SO4 30 MG TABLET PO PRN (18:12)
[2016-11-19] MEDS ORDERED: CHLORHEXIDINE GLUCONATE 4% CLEANSER FOR DECOLONIZATION TP SCH (22:00)
[2016-11-19] MEDS ORDERED: MUPIROCIN 2% TOPICAL OINTMENT FOR DECOLONIZATION NS SCH (22:00)
[2016-11-19] MEDS ORDERED: ATORVASTATIN CA 10 MG TABLET (FP) PO SCH ×2 (22:00)
--- NOTE | 2016-11-20 06:58 | PN ---
Physical Exam: SUBJECTIVE: Patient seen and examined at bedside. Pt was confused last night. She pulled out her IV lines thinking she was at home. Pt has also been coughing. She has not been able to produce sputum. Has no complaints at this time. OBJECTIVE: Vital Signs Period Temp Pulse Resp BP Sys/Argueta Pulse Ox Last 24 Hr 97.7 F-99.2 F 67-83 16-21 111-162/63-87 95-96 GENERAL: The patient is awake, alert, and fully oriented, in no acute distress. HEAD: Normal with no signs of trauma. EYES: PERRLA, extraocular movements intact, sclera anicteric, conjunctiva clear. No ptosis. ENT: Ears normal, nares patent, oropharynx clear without exudates, moist mucous membranes. NECK: Trachea midline, full range of motion, supple. LUNGS: Breath sounds equal, clear to auscultation bilaterally, no wheezes, no crackles, no accessory muscle use. HEART: Regular rate and rhythm, S1, S2 without murmur, rub or gallop. ABDOMEN: Soft, nontender, nondistended, normoactive bowel sounds, no guarding, no rebound, no hepatosplenomegaly, no masses. EXTREMITIES: 2+ pulses, warm, well-perfused, no edema. NEUROLOGICAL: Cranial nerves II through XII grossly intact. Normal speech, gait not observed. strength 5/5 throughout. Sensation intact throughout. PSYCH: Normal mood, normal affect. SKIN: Warm, dry, normal turgor, no rashes or lesions noted Laboratory Results - last 24 hr 11/19/16 11/19/16 11/19/16 05:30 05:30 13:28 WBC 11.5 H RBC 3.49 L Hgb 11.0 Hct 32.1 L MCV 92.1 MCH 31.4 MCHC 34.1 RDW 13.4 Plt Count 393 MPV 7.7 Sodium 128 L 125 L Potassium 3.8 3.7 Chloride 92 L 86 L Carbon Dioxide 28 24 Anion Gap 8 15 BUN 10 12 Creatinine 0.6 0.7 Creat Clearance w eGFR > 60 Random Glucose 185 H D 345 H* D Calcium 8.3 L 8.1 L Phosphorus 3.0 Magnesium 2.1 Total Bilirubin 0.2 Direct Bilirubin 0.1 AST 91 H ALT 119 H Alkaline Phosphatase 181 H Total Protein 5.7 L Albumin 2.0 L 11/20/16 00:45 WBC RBC Hgb Hct MCV MCH MCHC RDW Plt Count MPV Sodium 129 L Potassium Chloride Carbon Dioxide Anion Gap BUN Creatinine Creat Clearance w eGFR Random Glucose Calcium Phosphorus Magnesium Total Bilirubin Direct Bilirubin AST ALT Alkaline Phosphatase Total Protein Albumin Active Medications Generic Name Dose Route Start Last Admin Trade Name Freq PRN Reason Stop Dose Admin Atorvastatin Calcium 10 mg 11/19/16 22:00 11/19/16 21:50 Lipitor - PO 10 mg HS [facility] Administration Benzocaine/Menthol 1 each 11/19/16 18:12 11/20/16 06:33 Cepacol Lozenge - MM 1 each PRN PRN Administration SORE THROAT Codeine Sulfate 30 mg 11/19/16 18:12 Codeine Sulfate - PO Q6H PRN COUGH Heparin Sodium (Porcine) 5,000 unit 11/19/16 22:00 11/19/16 21:50 Heparin - SQ 5,000 unit BID [facility] Administration Dextrose 1,000 mls @ 35 mls/hr 11/19/16 13:39 11/19/16 21:50 D5w - IV 35 mls/hr ASDIR [facility] Administration Azithromycin 250 mls @ 250 mls/hr 11/20/16 10:00 Zithromax 500mg Ivpb (Pre-Docked) IVPB DAILY [facility] Ceftriaxone Sodium 50 mls @ 100 mls/hr 11/20/16 10:00 Rocephin 1gm Ivpb (Pre-Docked) IVPB DAILY [facility] Methylprednisolone Sodium Succinate 40 mg 11/20/16 10:00 Solu-Medrol - IVPB DAILY [facility] Valsartan 160 mg 11/20/16 10:00 Diovan - PO DAILY [facility] ASSESSMENT/PLAN: This is an 89yF with PMH HTN, HLD presented to the ED from her PCP office with B /L PNA. She has been admitted for same. #PNA-community acquired - completed 3 day course azithromycin. - d/c ceftriaxone due to elevation of liver enzymes - CT chest shows b/l PNA with mild mediastinal LAD - urine for legionella negative. Will follow titers -consult ID, pulm - d/c medrol #rising lfts -per Pulm, stop ceftriaxone #Hyponatremia: likely volume down with dry lips and axillae in setting of decreased PO intake - DW Dr. Whitley, renal consult appreciated - DC HCTZ - per nephro, stop fluids, monitor sodium #hyperglycemia -possibly 2/2 steroids -A1c-6.7% -ISS -DM diet #Mediastinal lymphadenopathy -incidental discovery on chest CT -per pulm, will need PET scan as outpt following d/c #HTN - cont diovan #HLD - home lovastatin 40mg changed to formulary lipitor 10mg as per protocol #FEN - D5W @ 30 cc/hr - monitor closely. Na level q4h - regular diet as tolerated. #DVT PPX - Heparin 5000u BID #Dispo: Admit to Med/Surg. Legionella, CAP, hyponatremia Visit type - Emergency Visit Emergency Visit: No - New Patient This patient is new to me today: No - Critical Care Critical Care patient: No - Discharge Referral Referred to [facility] Med P.C.: No
[2016-11-20 07:26] LABS: MCH 31.2 pg (25.7-33.7); MCHC 33.9 g/dl (32.0-36.0); MEAN CELL VOLUME 92.2 fl (80-96); MEAN PLT VOLUME 7.6 fl (7.5-11.1); PLATELET COUNT 445 K/MM3 (134-434); WHITE BLOOD COUNT 15.9 K/mm3 (4.0-10.0)
[2016-11-20 07:38] LABS: INR 1.2 (0.82-1.09); PROTHROMBIN TIME (PATIENT) 13.2 SEC (9.98-11.88)
[2016-11-20 07:40] LABS: ACTIVATED PTT 25.7 SECONDS (26.9-34.4)
[2016-11-20] MEDS ORDERED: DEXTROSE 5%-WATER - 1,000 ML IV SCH (07:43)
[2016-11-20 08:39] LABS: ALBUMIN 2.2 g/dl (3.4-5.0); ALK PHOS 215 U/L (45-117); ANION GAP 13 (8-16); BILIRUBIN,TOTAL 0.6 mg/dL (0.2-1.0); CALCIUM 8.3 mg/dL (8.5-10.1); CO2 28 mmol/L (21-32); CREATININE 0.5 mg/dL (0.55-1.02); GLUCOSE,RANDOM 98 mg/dL (74-106); MAGNESIUM 2.2 mg/dL (1.8-2.4); SGOT/AST 287 U/L (15-37); SGPT/ALT 368 U/L (12-78); TOT PROT 5.7 g/dl (6.4-8.2)
[2016-11-20] MEDS: HEPARIN NA (PORCINE) 5,000 UNITS/ML 1ML VIAL SQ SCH ×2 (09:19→22:05)
[2016-11-20] MEDS: VALSARTAN 160 MG TABLET (UD) PO SCH (09:19)
[2016-11-20] MEDS ORDERED: CEFTRIAXONE 50 ML IVPB SCH (10:00)
[2016-11-20] MEDS ORDERED: AZITHROMYCIN IVPB 250 ML IVPB SCH (10:00)
[2016-11-20] MEDS ORDERED: methylPREDNISolone NA SUCC 40 MG/1 ML VIAL IVPB SCH (10:00)
--- NOTE | 2016-11-20 10:44 | PN ---
Progress Note (short form) - Note Progress Note: PULMONARY Still with nonproductive cough. No fevers recorded. Last Vital Signs Temp Pulse Resp BP Pulse Ox 99.7 F H 81 20 142/76 96 11/20/16 06:00 11/20/16 06:00 11/20/16 06:00 11/20/16 06:00 11/19/16 21:00 Gen: NAD at rest Heart: RRR Lung: scattered rales Abd: soft, nontender Ext: no edema CBC, BMP 11/20/16 06:30 11/20/16 06:30 Hepatic Panel Total Bilirubin 0.6 mg/dL (0.2-1.0) D 11/20/16 06:30 Direct Bilirubin 0.1 mg/dL (0.0-0.2) 11/19/16 05:30 AST 287 U/L (15-37) H D 11/20/16 06:30 ALT 368 U/L (12-78) H D 11/20/16 06:30 Alkaline Phosphatase 215 U/L (45-117) H 11/20/16 06:30 Albumin 2.2 g/dl (3.4-5.0) L 11/20/16 06:30 Active Medications Atorvastatin Calcium (Lipitor -) 10 mg PO HS [facility] Last Admin: 11/19/16 21:50 Dose: 10 mg Benzocaine/Menthol (Cepacol Lozenge -) 1 each MM PRN PRN PRN Reason: SORE THROAT Last Admin: 11/20/16 06:33 Dose: 1 each Codeine Sulfate (Codeine Sulfate -) 30 mg PO Q6H PRN PRN Reason: COUGH Heparin Sodium (Porcine) (Heparin -) 5,000 unit SQ BID [facility] Last Admin: 11/20/16 09:19 Dose: 5,000 unit Azithromycin (Zithromax 500mg Ivpb (Pre-Docked)) 250 mls @ 250 mls/hr IVPB DAILY [facility] Last Admin: 11/20/16 09:19 Dose: 250 mls/hr Ceftriaxone Sodium (Rocephin 1gm Ivpb (Pre-Docked)) 50 mls @ 100 mls/hr IVPB DAILY [facility] Last Admin: 11/20/16 09:19 Dose: 100 mls/hr Dextrose (D5w -) 1,000 mls @ 30 mls/hr IV ASDIR [facility] Last Admin: 11/20/16 09:18 Dose: 30 mls/hr Insulin Aspart (Novolog Vial Sliding Scale -) 1 vial SQ ACHS COUNT INCLUDES [facility] PRN Reason: Protocol Methylprednisolone Sodium Succinate (Solu-Medrol -) 40 mg IVPB DAILY [facility] Last Admin: 11/20/16 09:19 Dose: 40 mg Valsartan (Diovan -) 160 mg PO DAILY [facility] Last Admin: 11/20/16 09:19 Dose: 160 mg A/P Pneumonia r/o Legionnaires Hyponatremia Elevated LFTs HTN Hyperlipidemia - continue antibiotics, consider changing ceftriaxone as LFTs rising - f/u cultures, serologies - can d/c medrol - IVF per renal - monitor sodium - outpt follow up of lymphadenopathy - DVT prophylaxis
[2016-11-20 11:01] LABS: METAMYELOCYTE 5 % (0-2); PLATELET ESTIMATE ADEQUATE (NORMAL)
[2016-11-20] MEDS ORDERED: INSULIN (NOVOLOG) ASPART 100 UNITS/ML 10ML VIAL ONE (12:15)
[2016-11-20] MEDS: INSULIN SLIDING SCALE (NOVOLOG) 1 VIAL SQ SCH ×3 (12:16→22:05)
--- NOTE | 2016-11-20 16:34 | PN ---
Progress Note, Physician History of Present Illness: Pt seen and examined at bedside. She is awake and alert. She denies headache or change in vision. - Current Medication List Current Medications: Active Medications Benzocaine/Menthol (Cepacol Lozenge -) 1 each MM PRN PRN PRN Reason: SORE THROAT Last Admin: 11/20/16 06:33 Dose: 1 each Codeine Sulfate (Codeine Sulfate -) 30 mg PO Q6H PRN PRN Reason: COUGH Heparin Sodium (Porcine) (Heparin -) 5,000 unit SQ BID [facility] Last Admin: 11/20/16 09:19 Dose: 5,000 unit Dextrose (D5w -) 1,000 mls @ 30 mls/hr IV ASDIR [facility] Last Admin: 11/20/16 09:18 Dose: 30 mls/hr Insulin Aspart (Novolog Vial Sliding Scale -) 1 vial SQ ACHS [facility] PRN Reason: Protocol Last Admin: 11/20/16 12:16 Dose: 2 units Valsartan (Diovan -) 160 mg PO DAILY [facility] Last Admin: 11/20/16 09:19 Dose: 160 mg - Objective Vital Signs: Vital Signs Temperature 98.2 F 11/20/16 13:56 Pulse Rate 85 11/20/16 13:56 Respiratory Rate 18 11/20/16 13:56 Blood Pressure 125/65 11/20/16 13:56 O2 Sat by Pulse Oximetry (%) 96 11/20/16 09:00 Constitutional: Yes: Calm Eyes: Yes: Conjunctiva Clear HENT: Yes: Atraumatic Neck: Yes: Supple Cardiovascular: Yes: S1, S2 Respiratory: Yes: CTA Bilaterally Gastrointestinal: Yes: Soft Genitourinary: Yes: WNL Musculoskeletal: Yes: WNL Edema: Yes Edema: LLE: Trace, RLE: Trace Neurological: Yes: Oriented Psychiatric: Yes: Oriented Labs: CBC, BMP 11/20/16 06:30 11/20/16 06:30 INR, PTT INR 1.20 (0.82-1.09) H 11/20/16 06:30 Problem List - Problems (1) Hyponatremia Code(s): E87.1 - HYPO-OSMOLALITY AND HYPONATREMIA Assessment/Plan Current Medications Generic Name Dose Route Start Last Admin Trade Name Freq PRN Reason Stop Dose Admin Benzocaine/Menthol 1 each 11/19/16 18:12 11/20/16 06:33 Cepacol Lozenge - MM 1 each PRN PRN Administration SORE THROAT Codeine Sulfate 30 mg 11/19/16 18:12 Codeine Sulfate - PO Q6H PRN COUGH Heparin Sodium (Porcine) 5,000 unit 11/19/16 22:00 11/20/16 09:19 Heparin - SQ 5,000 unit BID [facility] Administration Dextrose 1,000 mls @ 30 mls/hr 11/20/16 07:43 11/20/16 09:18 D5w - IV 30 mls/hr ASDIR [facility] Administration Insulin Aspart 1 vial 11/20/16 11:00 11/20/16 12:16 Novolog Vial Sliding Scale - SQ 2 units ACHS [facility] Administration Protocol Valsartan 160 mg 11/20/16 10:00 11/20/16 09:19 Diovan - PO 160 mg DAILY [facility] Administration Impression 1. hyponatremia 2. PNA 3. mediastinal lymphadenopathy 4. HTN 5. hyperlipidemia Plan - sodium is improving - can stop fluids - monitor sodium - cont regular diet - etiology of hyponatremia - hypovolemic hypotonic - recommend not restarting hctz - mediastinal lymphadenopathy should be followed Dr Whitley
--- NOTE | 2016-11-20 18:18 | PN ---
Teaching Attending Note Name of Resident: Nash Marquez ATTENDING PHYSICIAN STATEMENT I saw and evaluated the patient. I reviewed the resident's note and discussed the case with the resident. I agree with the resident's findings and plan as documented. SUBJECTIVE: Events noted overnight, positive for cough. OBJECTIVE: Vital Signs Temperature 98.2 F 11/20/16 13:56 Pulse Rate 85 11/20/16 13:56 Respiratory Rate 18 11/20/16 13:56 Blood Pressure 125/65 11/20/16 13:56 O2 Sat by Pulse Oximetry (%) 96 11/20/16 09:00 CBCD WBC 15.9 K/mm3 (4.0-10.0) H D 11/20/16 06:30 RBC 3.69 M/mm3 (3.60-5.2) 11/20/16 06:30 Hgb 11.5 GM/dL (10.7-15.3) 11/20/16 06:30 Hct 34.0 % (32.4-45.2) 11/20/16 06:30 MCV 92.2 fl (80-96) 11/20/16 06:30 MCHC 33.9 g/dl (32.0-36.0) 11/20/16 06:30 RDW 14.0 % (11.6-15.6) 11/20/16 06:30 Plt Count 445 K/MM3 (134-434) H 11/20/16 06:30 MPV 7.6 fl (7.5-11.1) 11/20/16 06:30 CMP Sodium 131 mmol/L (136-145) L 11/20/16 06:30 Potassium 3.7 mmol/L (3.5-5.1) 11/20/16 06:30 Chloride 90 mmol/L (98-107) L 11/20/16 06:30 Carbon Dioxide 28 mmol/L (21-32) 11/20/16 06:30 Anion Gap 13 (8-16) 11/20/16 06:30 BUN 14 mg/dL (7-18) 11/20/16 06:30 Creatinine 0.5 mg/dL (0.55-1.02) L D 11/20/16 06:30 Creat Clearance w eGFR > 60 (>60) 11/20/16 06:30 Random Glucose 98 mg/dL (74-106) D 11/20/16 06:30 Calcium 8.3 mg/dL (8.5-10.1) L 11/20/16 06:30 Total Bilirubin 0.6 mg/dL (0.2-1.0) D 11/20/16 06:30 AST 287 U/L (15-37) H D 11/20/16 06:30 ALT 368 U/L (12-78) H D 11/20/16 06:30 Alkaline Phosphatase 215 U/L (45-117) H 11/20/16 06:30 Total Protein 5.7 g/dl (6.4-8.2) L 11/20/16 06:30 Albumin 2.2 g/dl (3.4-5.0) L 11/20/16 06:30 Current Medications Generic Name Dose Route Start Last Admin Trade Name Freq PRN Reason Stop Dose Admin Benzocaine/Menthol 1 each 11/19/16 18:12 11/20/16 06:33 Cepacol Lozenge - MM 1 each PRN PRN Administration SORE THROAT Codeine Sulfate 30 mg 11/19/16 18:12 Codeine Sulfate - PO Q6H PRN COUGH Heparin Sodium (Porcine) 5,000 unit 11/19/16 22:00 11/20/16 09:19 Heparin - SQ 5,000 unit BID [facility] Administration Insulin Aspart 1 vial 11/20/16 11:00 11/20/16 17:15 Novolog Vial Sliding Scale - SQ 2 units ACHS [facility] Administration Protocol Valsartan 160 mg 11/20/16 10:00 11/20/16 09:19 Diovan - PO 160 mg DAILY [facility] Administration Laboratory Tests 11/17/16 11/17/16 11/17/16 13:41 13:41 19:40 WBC Plt Count Band Neutrophils 27.0 H Metamyelocytes Myelocytes Sodium 115 L* 120 L* Chloride Hemoglobin A1c % Calcium AST ALT 45 H Alkaline Phosphatase 91 11/17/16 11/18/16 11/18/16 22:30 00:55 04:28 WBC Plt Count Band Neutrophils Metamyelocytes Myelocytes Sodium 120 L* 127 L 130 L Chloride Hemoglobin A1c % Calcium AST ALT Alkaline Phosphatase 11/18/16 11/18/16 11/18/16 06:30 06:50 11:00 WBC Plt Count Band Neutrophils Metamyelocytes Myelocytes Sodium 128 L 129 L 128 L Chloride Hemoglobin A1c % Calcium AST ALT Alkaline Phosphatase 11/18/16 11/18/16 11/18/16 12:00 16:30 21:00 WBC 11.3 H Plt Count Band Neutrophils Metamyelocytes Myelocytes Sodium 127 L 123 L* Chloride Hemoglobin A1c % Calcium 7.8 L AST ALT Alkaline Phosphatase 11/19/16 11/19/16 11/19/16 01:15 05:30 05:30 WBC 11.5 H Plt Count Band Neutrophils Metamyelocytes Myelocytes Sodium 130 L 128 L Chloride 92 L Hemoglobin A1c % Calcium 8.3 L AST 91 H ALT 119 H Alkaline Phosphatase 181 H 11/19/16 11/20/16 11/20/16 13:28 00:45 06:30 WBC Plt Count Band Neutrophils Metamyelocytes Myelocytes Sodium 125 L 129 L Chloride Hemoglobin A1c % 6.7 H Calcium 8.1 L AST ALT Alkaline Phosphatase 11/20/16 11/20/16 06:30 06:30 WBC 15.9 H D Plt Count 445 H Band Neutrophils Metamyelocytes 5 H Myelocytes 6 H Sodium 131 L Chloride Hemoglobin A1c % Calcium AST 287 H D ALT 368 H D Alkaline Phosphatase 215 H CHEST: decreased BS BL HISTORY PROVIDED: Bilateral pneumonia TECHNIQUE: Sequential axial images were obtained from the thoracic inlet through the domes of the diaphragm. Evaluation of the lung luna demonstrates extensive consolidation within the posterior segment of the right upper lobe. Dense consolidation is also identified within the right lower lobe. The middle lobe is largely clear. Less extensive, patchy infiltrates are seen within the left upper and lower lobes. No pulmonary masses or pleural effusions are present. Examination of the mediastinum demonstrates prominent lymph nodes that include a 2.1 cm subcarinal node and a 1.5 cm precarinal node. The etiology and significance of this adenopathy is uncertain. There is no evidence of mediastinal masses or fluid collections. The heart is not significantly enlarged. Evaluation of the upper abdomen demonstrates no acute abnormalities. IMPRESSION: 1. Bilateral consolidation consistent with pneumonia. These changes are most pronounced within the right upper and lower lobes. Clinical correlation and follow-up recommended. 2. Mild mediastinal lymphadenopathy. Please see above discussion. ASSESSMENT AND PLAN: 89 y/o lady with h/o HTN, and HLP who presented with cough and was found tohave b?l infiltrates and severe hyponatremia # Acute transaminitis will discontinue IV rocephin, completed zithromax IV, GI and ID for consult # Bilateral consolidation consistent with pneumonia. will discontinue Rocephin since elevated transaminits and start the patient on Zosyn IV. Negative for Legionella and strept.pneumo. ID consult for further management. # Acute severe hyponatremia: Likely due to dehydration. Diuretic is on hold , will continue IVF ,gentle hydration. Nephro is on the case. # HTN: Continue meds. Diovan , Hctz is on hold # Acute Leukocytosis: off steroid now DVT PX : Heparin sq
[2016-11-20] MEDS ORDERED: guaiFENesin/CODEINE 5 ML UNIT-DOSE CUPS PO PRN (18:32)
[2016-11-20] MEDS: PIPERACILLIN/TAZOB 3.375 GM/50 ML PRE-DOCKED IVPB SCH (18:38)
--- NOTE | 2016-11-20 20:43 | CON.GI ---
Consult Consult Specialty:: GASTROENTEROLOGY - History of Present Illness Chief Complaint: COUGH/PNEUMONIA History of Present Illness: 89 YEAR OLD FEMALE WITH PNEUMONIA AND NORMAL LFT'S ON ADMISSION. GIVEN ROCEPHIN AND SHE HAD BUMP IN HER TRANSAMINASES. SHE HAS NO HX OF PRIOR LIVER DISEASE. NO RISKS FOR HEPATITIS, NO HX OF GALLSTONES, NO PRIOR BLOOD TRNASFUSIONS AND SHE HAS NOT HAD ABDOMOINAL PAIN, JAUNDICE ,DARK URINE OR LIGHT COLORED STOOL. - History Source History Provided By: Patient, Medical Record Limitations to Obtaining History: No Limitations - Past Medical History Cardio/Vascular: Yes: HTN, Hyperlipdemia Gastrointestinal: No: Ascites, Cancer, Constipation, Crohn's Disease, Diverticulitis, Diverticulosis, Esophageal Varices, Gastritis, GERD, GI Bleed, Hemorrhoids, Hiatal Hernia, Inflamatory Bowel Disease, Irritable Bowel Disease, Pancreatitis, Peptic Ulcer Disease, Ulcerative Colitis, Other Hepatobiliary: No: Cirrhosis, Cholelithiasis, Cholecystitis, Choledocholithiasis , Hepatitis A, Hepatitis B, Hepatitis C, Other ...: No Heme/Onc: No: Anemia, B12 Deficiency, Bleeding Disorder, Cancer, Current Chemotherapy, Current Radiation Therapy, Hemochromatosis, Hypercoaguable State, Myeloproliferative Synd, Sickle Cell Disease, Sickle Cell Trait, Thrombocytopenia, Other Musculoskeletal: No: Bursitis, Chronic low back pain, Hemiparesis, Hemiplegia, Osteoarthritis, Paraplegia, Other Rheumatology: No: Fibromyalgia, Gout, Lupus, Rheumatoid Arthritis, Sarcoidosis, Vasculitis, Other ENT: No: Allergic Rhinitis, Sinusitis, Other Endocrine: No: Kingston's Disease, Maryam's Disease, Diabetes Insipidus, Diabetes Mellitus, Hyperparathyroidism, Hyperthyroidism, Hypothyroidism, Osteopenia, SIADH, Other - Past Surgical History Past Surgical History: Yes: None (patient denies a surgical history ) - Alcohol/Substance Use Hx Alcohol Use: Yes (nightly) - Smoking History Smoking history: Never smoked Home Medications - Allergies Allergies/Adverse Reactions: Allergies Allergy/AdvReac Type Severity Reaction Status Date / Time No Known Allergies Allergy Verified 11/17/16 13:04 - Home Medications Home Medications: Ambulatory Orders Hydrochlorothiazide [Hctz -] 12.5 mg PO DAILY 11/17/16 Lovastatin [Altoprev] 40 mg PO DAILY 11/17/16 Olmesartan Medoxomil 20 mg PO DAILY 11/17/16 Azelastine HCl 2 puff IN BID 11/18/16 Benzonatate 100 mg PO TID 11/18/16 Review of Systems - Review of Systems Constitutional: reports: No Symptoms Eyes: reports: No Symptoms HENT: reports: No Symptoms Neck: reports: No Symptoms Cardiovascular: reports: Shortness of Breath Respiratory: reports: Cough, SOB Gastrointestinal: reports: No Symptoms Genitourinary: reports: No Symptoms Breasts: reports: No Symptoms Reported Musculoskeletal: reports: No Symptoms Integumentary: reports: No Symptoms Neurological: reports: No Symptoms Endocrine: reports: No Symptoms Hematology/Lymphatic: reports: No Symptoms Psychiatric: reports: No Symptoms Physical Exam-GI Vital Signs: Vital Signs Temperature 98.3 F 11/20/16 18:15 Pulse Rate 80 11/20/16 18:15 Respiratory Rate 20 11/20/16 18:15 Blood Pressure 152/82 11/20/16 18:15 O2 Sat by Pulse Oximetry (%) 96 11/20/16 09:00 Constitutional: Yes: Well Nourished Eyes: Yes: Conjunctiva Clear HENT: Yes: Normocephalic Neck: Yes: Supple Respiratory: Yes: Rhonchi Gastrointestinal Inspection: Yes: WNL ...Auscultate: Yes: Normoactive Bowel Sounds ...Palpate: Yes: Soft Musculoskeletal: Yes: WNL Extremities: Yes: WNL Neurological: Yes: Alert, Oriented Labs: CBC, BMP 11/20/16 06:30 11/20/16 06:30 INR, PTT INR 1.20 (0.82-1.09) H 11/20/16 06:30 Laboratory Tests 11/17/16 11/19/16 11/19/16 14:55 05:30 13:28 Sodium 125 L Potassium 3.7 Chloride 86 L Carbon Dioxide 24 Anion Gap 15 Creat Clearance w eGFR POC Glucometer Random Glucose 345 H* D Hemoglobin A1c % Calcium 8.1 L Phosphorus Magnesium Total Bilirubin AST ALT Alkaline Phosphatase Total Protein Albumin Urine Urobilinogen >=8.0 e.u./dl H M.pneumoniae IgG Titer Pending M.pneumoniae IgM Titer Pending 11/20/16 11/20/16 11/20/16 06:30 06:30 12:12 Sodium 131 L Potassium 3.7 Chloride 90 L Carbon Dioxide 28 Anion Gap 13 Creat Clearance w eGFR > 60 POC Glucometer 164 Random Glucose Hemoglobin A1c % 6.7 H Calcium 8.3 L Phosphorus 3.0 Magnesium 2.2 Total Bilirubin 0.6 D AST 287 H D ALT 368 H D Alkaline Phosphatase 215 H Total Protein 5.7 L Albumin 2.2 L Urine Urobilinogen M.pneumoniae IgG Titer M.pneumoniae IgM Titer 11/20/16 16:53 Sodium Potassium Chloride Carbon Dioxide Anion Gap Creat Clearance w eGFR POC Glucometer 191 Random Glucose Hemoglobin A1c % Calcium Phosphorus Magnesium Total Bilirubin AST ALT Alkaline Phosphatase Total Protein Albumin Urine Urobilinogen M.pneumoniae IgG Titer M.pneumoniae IgM Titer Imaging - Results Cat Scan: Image Reviewed Ultrasound: Image Reviewed Problem List - Problems (1) Elevated LFTs Assessment/Plan: NORMASL LFT'S WITH SUDDEN RISE AFTER ABX AND PATIENT WITHOUT ABDOMINAL PAIN SUGGESTS THAT NOT RELATED TO GALLSTONES. HER ALCOHOL USE PROBABLY NOT CAUSE EITHGER THE LEVLES WERE NORMAL ON ADMISSION. WILL WATCH LFT'S OFF ROCEPHIN BUT IF NOT RAPID DECREASE WOULD SUGGEST EITHER CT SCAN OF ABDOMEN OR MRI/MRCP. WILL FOLLOW WITH YOU. Code(s): R79.89 - OTHER SPECIFIED ABNORMAL FINDINGS OF BLOOD CHEMISTRY (2) Gallstones Code(s): K80.20 - CALCULUS OF GALLBLADDER W/O CHOLECYSTITIS W/O OBSTRUCTION (3) Hyponatremia Code(s): E87.1 - HYPO-OSMOLALITY AND HYPONATREMIA (4) Pneumonia Code(s): J18.9 - PNEUMONIA, UNSPECIFIED ORGANISM Qualifiers: Pneumonia type: due to unspecified organism Laterality: bilateral Lung location: upper lobe of lung Qualified Code(s): J18.9 - Pneumonia, unspecified organism
[2016-11-21] MEDS: PIPERACILLIN/TAZOB 3.375 GM/50 ML PRE-DOCKED IVPB SCH (02:46)
[2016-11-21] MEDS: INSULIN SLIDING SCALE (NOVOLOG) 1 VIAL SQ SCH ×4 (06:35→22:50)
[2016-11-21 08:12] LABS: MCH 31.2 pg (25.7-33.7); MCHC 34.2 g/dl (32.0-36.0); MEAN CELL VOLUME 91.1 fl (80-96); MEAN PLT VOLUME 7.2 fl (7.5-11.1); PLATELET COUNT 472 K/MM3 (134-434); WHITE BLOOD COUNT 15.8 K/mm3 (4.0-10.0)
[2016-11-21 08:50] LABS: ALBUMIN 2.1 g/dl (3.4-5.0); ANION GAP 12 (8-16); CO2 28 mmol/L (21-32); GLUCOSE,RANDOM 82 mg/dL (74-106); SGOT/AST 130 U/L (15-37)
[2016-11-21 08:52] LABS: ALK PHOS 194 U/L (45-117); BILIRUBIN,TOTAL 0.5 mg/dL (0.2-1.0); CREATININE 0.6 mg/dL (0.55-1.02); SGPT/ALT 298 U/L (12-78); TOT PROT 5.7 g/dl (6.4-8.2)
[2016-11-21] MEDS ORDERED: PT OWN MED DRAWER 7, Y5N ONE (09:27)
[2016-11-21] MEDS: VALSARTAN 160 MG TABLET (UD) PO SCH (09:35)
[2016-11-21] MEDS: HEPARIN NA (PORCINE) 5,000 UNITS/ML 1ML VIAL SQ SCH ×2 (09:35→22:27)
[2016-11-21 12:49] LABS: METAMYELOCYTE 1 % (0-2)
[2016-11-21 12:50] LABS: PLATELET ESTIMATE ADEQUATE (NORMAL)
--- NOTE | 2016-11-21 14:15 | PN ---
Progress Note (short form) - Note Progress Note: ID Consult dictated Bilateral community acquired v. atypical pneumonia Elevated LFTs, possible adverse drug reaction ( zithromax, ceftriaxone ) Leukocytosis S/P hyponatremia Agree with substituting zosyn Sputum c/s Monitor LFTs GI followup
--- NOTE | 2016-11-21 14:19 | PN ---
Progress Note, Physician History of Present Illness: PULMONARY DOING WELL ,-SOB,MIN COUGH - Current Medication List Current Medications: Active Medications Benzocaine/Menthol (Cepacol Lozenge -) 1 each MM PRN PRN PRN Reason: SORE THROAT Last Admin: 11/20/16 06:33 Dose: 1 each Guaifenesin/Codeine Phosphate (Robitussin Ac -) 5 ml PO TID PRN PRN Reason: COUGH Heparin Sodium (Porcine) (Heparin -) 5,000 unit SQ BID [facility] Last Admin: 11/21/16 09:35 Dose: 5,000 unit Piperacillin Sod/Tazobactam (Sod 3.375 gm/ Dextrose) 50 mls @ 100 mls/hr IVPB Q8H-IV [facility] PRN Reason: Protocol Insulin Aspart (Novolog Vial Sliding Scale -) 1 vial SQ ACHS [facility] PRN Reason: Protocol Last Admin: 11/21/16 12:11 Dose: Not Given Valsartan (Diovan -) 160 mg PO DAILY [facility] Last Admin: 11/21/16 09:35 Dose: 160 mg - Objective Vital Signs: Vital Signs Temperature 100.0 F H 11/21/16 06:00 Pulse Rate 69 11/21/16 10:00 Respiratory Rate 18 11/21/16 06:00 Blood Pressure 142/77 11/21/16 06:00 O2 Sat by Pulse Oximetry (%) 92 L 11/21/16 10:00 Constitutional: Yes: Well Nourished, Calm Eyes: Yes: WNL HENT: Yes: WNL Neck: Yes: WNL Cardiovascular: Yes: Regular Rate and Rhythm, S1, S2 Respiratory: Yes: Rales Gastrointestinal: Yes: Normal Bowel Sounds, Soft Extremities: Yes: WNL Edema: Yes Labs: CBC, BMP 11/21/16 06:58 11/21/16 06:58 INR, PTT INR 1.20 (0.82-1.09) H 11/20/16 06:30 Assessment/Plan A/P Pneumonia clinically improving Elevated LFTs HTN Hyperlipidemia - continue antibiotics as per id - IVF per renal - monitor sodium - outpt follow up of lymphadenopathy - DVT prophylaxis - monitor LFTS DR CARTER
[2016-11-21] MEDS: PIPERACILLIN/TAZOB 3.375 GM 50 ML IVPB SCH ×2 (15:04→18:41)
--- NOTE | 2016-11-21 16:04 | PN ---
GI Progress Note Subjective: GASTROENTEROLOGY FEELING OK LFT'S SLIGHTLY IMPROVED .8 UROBILIRUBIN ON 11/17 - Objective Vital Signs: Vital Signs Temperature 98.5 F 11/21/16 14:36 Pulse Rate 80 11/21/16 14:36 Respiratory Rate 18 11/21/16 14:36 Blood Pressure 159/96 11/21/16 14:36 O2 Sat by Pulse Oximetry (%) 92 L 11/21/16 10:00 Constitutional: Calm Eyes: Yes: Conjunctiva Clear HENT: Yes: Normocephalic Neck: Yes: Supple Cardiovascular: Yes: Regular Rate and Rhythm Respiratory: Yes: Diminished ...Auscultate: Yes: Normoactive Bowel Sounds ...Palpate: Yes: Soft Extremities: Yes: WNL Labs: CBC, BMP 11/21/16 06:58 11/21/16 06:58 INR, PTT INR 1.20 (0.82-1.09) H 11/20/16 06:30 Laboratory Tests 11/19/16 11/20/16 11/21/16 05:30 06:30 06:58 WBC 15.8 H RBC 3.56 L Hgb 11.1 Hct 32.4 MCV 91.1 MCH 31.2 MCHC 34.2 RDW 14.0 Plt Count 472 H Neutrophils % 65.0 Lymphocytes % 18.0 D Monocytes % 6.0 Band Neutrophils 1.0 Metamyelocytes 1 D Myelocytes 7 H INR 1.20 H Sodium Potassium Chloride Carbon Dioxide Anion Gap BUN Creatinine Creat Clearance w eGFR POC Glucometer Random Glucose Calcium Total Bilirubin AST ALT Alkaline Phosphatase Total Protein Albumin M.pneumoniae IgG Titer Pending M.pneumoniae IgM Titer Pending 11/21/16 11/21/16 06:58 12:07 WBC RBC Hgb Hct MCV MCH MCHC RDW Plt Count Neutrophils % Lymphocytes % Monocytes % Band Neutrophils Metamyelocytes Myelocytes INR Sodium 130 L Potassium 4.0 Chloride 90 L Carbon Dioxide 28 Anion Gap 12 BUN 17 D Creatinine 0.6 Creat Clearance w eGFR > 60 POC Glucometer 103 Random Glucose 82 Calcium 8.0 L Total Bilirubin 0.5 AST 130 H D ALT 298 H Alkaline Phosphatase 194 H Total Protein 5.7 L Albumin 2.1 L M.pneumoniae IgG Titer M.pneumoniae IgM Titer Problem List - Problems (1) Elevated LFTs Assessment/Plan: LFT'S SLIGHTLY IMPROVED LARGE AMOUNT OF UROBILIR IN URINWE EARLY IN ADMISSION WILL ORDER CT SCAN OF ABDOMEN CONTINUE TO TREND LFT's BHARAT GALINDO MD Code(s): R79.89 - OTHER SPECIFIED ABNORMAL FINDINGS OF BLOOD CHEMISTRY (2) Gallstones Assessment/Plan: ABOVE Code(s): K80.20 - CALCULUS OF GALLBLADDER W/O CHOLECYSTITIS W/O OBSTRUCTION (3) Hyponatremia Code(s): E87.1 - HYPO-OSMOLALITY AND HYPONATREMIA (4) Pneumonia Code(s): J18.9 - PNEUMONIA, UNSPECIFIED ORGANISM Qualifiers: Pneumonia type: due to unspecified organism Laterality: bilateral Lung location: upper lobe of lung Qualified Code(s): J18.9 - Pneumonia, unspecified organism
--- NOTE | 2016-11-21 16:43 | PN ---
Physical Exam: SUBJECTIVE: Patient seen and examined at bedside. No acute events overnight. Pt denies fever, chills, weight loss, headache, dizziness, chest pain, shortness of breath, abdominal pain, nausea, vomiting, diarrhea, dysuria. OBJECTIVE: Vital Signs Period Temp Pulse Resp BP Sys/Argueta Pulse Ox Last 24 Hr 98.3 F-100.0 F 69-82 18-20 139-159/77-96 92-93 GENERAL: The patient is awake, alert, and fully oriented, in no acute distress. HEAD: Normal with no signs of trauma. EYES: sclera anicteric, conjunctiva clear. No ptosis. ENT: Ears normal, nares patent, oropharynx clear without exudates, moist mucous membranes. NECK: Trachea midline, full range of motion, supple. LUNGS: Breath sounds equal, clear to auscultation bilaterally, no wheezes, sparse crackles, no accessory muscle use. HEART: Regular rate and rhythm, S1, S2 without murmur, rub or gallop. ABDOMEN: Soft, nontender, nondistended, normoactive bowel sounds, no guarding, no rebound, no hepatosplenomegaly, no masses. EXTREMITIES: 2+ pulses, warm, well-perfused, no edema. NEUROLOGICAL: Cranial nerves II through XII grossly intact. Normal speech, gait not observed. PSYCH: Normal mood, normal affect. SKIN: Warm, dry, normal turgor, no rashes or lesions noted Laboratory Results - last 24 hr 11/19/16 11/20/16 11/20/16 05:30 16:53 20:54 WBC RBC Hgb Hct MCV MCH MCHC RDW Plt Count MPV Neutrophils % Lymphocytes % Monocytes % Band Neutrophils Metamyelocytes Myelocytes Differential Comment Plasma Cells Platelet Estimate Sodium Potassium Chloride Carbon Dioxide Anion Gap BUN Creatinine Creat Clearance w eGFR POC Glucometer 191 147 Random Glucose Calcium Total Bilirubin AST ALT Alkaline Phosphatase Total Protein Albumin M.pneumoniae IgM Titer <770 11/21/16 11/21/16 11/21/16 06:02 06:58 06:58 WBC 15.8 H RBC 3.56 L Hgb 11.1 Hct 32.4 MCV 91.1 MCH 31.2 MCHC 34.2 RDW 14.0 Plt Count 472 H MPV 7.2 L Neutrophils % 65.0 Lymphocytes % 18.0 D Monocytes % 6.0 Band Neutrophils 1.0 Metamyelocytes 1 D Myelocytes 7 H Differential Comment Manual diff done Plasma Cells 1 Platelet Estimate Adequate Sodium 130 L Potassium 4.0 Chloride 90 L Carbon Dioxide 28 Anion Gap 12 BUN 17 D Creatinine 0.6 Creat Clearance w eGFR > 60 POC Glucometer 99 Random Glucose 82 Calcium 8.0 L Total Bilirubin 0.5 AST 130 H D ALT 298 H Alkaline Phosphatase 194 H Total Protein 5.7 L Albumin 2.1 L M.pneumoniae IgM Titer 11/21/16 12:07 WBC RBC Hgb Hct MCV MCH MCHC RDW Plt Count MPV Neutrophils % Lymphocytes % Monocytes % Band Neutrophils Metamyelocytes Myelocytes Differential Comment Plasma Cells Platelet Estimate Sodium Potassium Chloride Carbon Dioxide Anion Gap BUN Creatinine Creat Clearance w eGFR POC Glucometer 103 Random Glucose Calcium Total Bilirubin AST ALT Alkaline Phosphatase Total Protein Albumin M.pneumoniae IgM Titer Active Medications Generic Name Dose Route Start Last Admin Trade Name Freq PRN Reason Stop Dose Admin Benzocaine/Menthol 1 each 11/19/16 18:12 11/20/16 06:33 Cepacol Lozenge - MM 1 each PRN PRN Administration SORE THROAT Guaifenesin/Codeine Phosphate 5 ml 11/20/16 18:32 Robitussin Ac - PO TID PRN COUGH Heparin Sodium (Porcine) 5,000 unit 11/19/16 22:00 11/21/16 09:35 Heparin - SQ 5,000 unit BID [facility] Administration Piperacillin Sod/Tazobactam Sod 50 mls @ 100 mls/hr 11/21/16 14:30 11/21/16 15: 04 Zosyn 3.375gm Ivpb (Pre-Docked) IVPB 100 mls/hr Q8H-IV [facility] Administration Protocol Insulin Aspart 1 vial 11/20/16 11:00 11/21/16 12:11 Novolog Vial Sliding Scale - SQ Not Given ACHS [facility] Protocol Valsartan 160 mg 11/20/16 10:00 11/21/16 09:35 Diovan - PO 160 mg DAILY [facility] Administration ASSESSMENT/PLAN: This is an 89yF with PMH HTN, HLD presented to the ED from her PCP office with B /L PNA. She has been admitted for same. #PNA-community acquired - CT chest shows b/l PNA with mild mediastinal LAD - urine for legionella negative. Titers negative - blood Cx neg, UCx neg - WBC 15.8 - per ID, f/u sputum Cx - consult ID, pulm - on Zosyn #rising lfts -per Pulm, stop ceftriaxone -per GI, Urobili is very high. CT abdomen ordered #Hyponatremia: likely volume down with dry lips and axillae in setting of decreased PO intake: Resolving - DW Dr. Whitley, renal consult appreciated - DC HCTZ - per nephro, stop fluids, monitor sodium. 130 today #hyperglycemia -possibly 2/2 steroids -A1c-6.7% -ISS -DM diet #Mediastinal lymphadenopathy -incidental discovery on chest CT -per pulm, will need PET scan as outpt following d/c #HTN - cont diovan #HLD - home lovastatin 40mg changed to formulary lipitor 10mg as per protocol #FEN - pt not on fluids - lytes resolving - regular diet as tolerated. #DVT PPX - Heparin 5000u BID #Dispo: Admit to Med/Surg. Legionella, CAP, hyponatremia Visit type - Emergency Visit Emergency Visit: No - New Patient This patient is new to me today: No - Critical Care Critical Care patient: No - Discharge Referral Referred to [facility] No
--- NOTE | 2016-11-21 17:25 | PN ---
Progress Note, Physician History of Present Illness: Pt seen and examined at bedside. She is awake and alert. She complains of decreased appetite and loose stool today. - Current Medication List Current Medications: Active Medications Benzocaine/Menthol (Cepacol Lozenge -) 1 each MM PRN PRN PRN Reason: SORE THROAT Last Admin: 11/20/16 06:33 Dose: 1 each Guaifenesin/Codeine Phosphate (Robitussin Ac -) 5 ml PO TID PRN PRN Reason: COUGH Heparin Sodium (Porcine) (Heparin -) 5,000 unit SQ BID [facility] Last Admin: 11/21/16 09:35 Dose: 5,000 unit Piperacillin Sod/Tazobactam Sod (Zosyn 3.375gm Ivpb (Pre-Docked)) 50 mls @ 100 mls/hr IVPB Q8H-IV [facility] PRN Reason: Protocol Last Admin: 11/21/16 15:04 Dose: 100 mls/hr Insulin Aspart (Novolog Vial Sliding Scale -) 1 vial SQ ACHS [facility] PRN Reason: Protocol Last Admin: 11/21/16 17:22 Dose: Not Given Valsartan (Diovan -) 160 mg PO DAILY [facility] Last Admin: 11/21/16 09:35 Dose: 160 mg - Objective Vital Signs: Vital Signs Temperature 98.5 F 11/21/16 14:36 Pulse Rate 80 11/21/16 14:36 Respiratory Rate 18 11/21/16 14:36 Blood Pressure 159/96 11/21/16 14:36 O2 Sat by Pulse Oximetry (%) 92 L 11/21/16 10:00 Constitutional: Yes: Calm Eyes: Yes: Conjunctiva Clear HENT: Yes: Atraumatic Cardiovascular: Yes: S1, S2 Respiratory: Yes: CTA Bilaterally Genitourinary: Yes: WNL Musculoskeletal: Yes: WNL Edema: LLE: Trace, RLE: Trace Neurological: Yes: Oriented Psychiatric: Yes: Oriented Labs: CBC, BMP 11/21/16 06:58 11/21/16 06:58 INR, PTT INR 1.20 (0.82-1.09) H 11/20/16 06:30 Problem List - Problems (1) Hyponatremia Code(s): E87.1 - HYPO-OSMOLALITY AND HYPONATREMIA Assessment/Plan Current Medications Generic Name Dose Route Start Last Admin Trade Name Freq PRN Reason Stop Dose Admin Benzocaine/Menthol 1 each 11/19/16 18:12 11/20/16 06:33 Cepacol Lozenge - MM 1 each PRN PRN Administration SORE THROAT Guaifenesin/Codeine Phosphate 5 ml 11/20/16 18:32 Robitussin Ac - PO TID PRN COUGH Heparin Sodium (Porcine) 5,000 unit 11/19/16 22:00 11/21/16 09:35 Heparin - SQ 5,000 unit BID [facility] Administration Piperacillin Sod/Tazobactam Sod 50 mls @ 100 mls/hr 11/21/16 14:30 11/21/16 15: 04 Zosyn 3.375gm Ivpb (Pre-Docked) IVPB 100 mls/hr Q8H-IV [facility] Administration Protocol Insulin Aspart 1 vial 11/20/16 11:00 11/21/16 17:22 Novolog Vial Sliding Scale - SQ Not Given ACHS [facility] Protocol Valsartan 160 mg 11/20/16 10:00 11/21/16 09:35 Diovan - PO 160 mg DAILY [facility] Administration Impression 1. hyponatremia 2. PNA 3. mediastinal lymphadenopathy 4. HTN 5. hyperlipidemia Plan - sodium stabilizing - will start fluids - repeat labs in am - monitor pt to see if developed diarrhea - encourage PO intake - monitor sodium - cont regular diet - etiology of hyponatremia - hypovolemic hypotonic - recommend not restarting hctz - mediastinal lymphadenopathy should be followed Dr Whitley
[2016-11-21] MEDS ORDERED: SODIUM CHLORIDE 1,000 ML IV SCH (17:30)
--- NOTE | 2016-11-21 17:36 | CONS ---
DATE OF CONSULTATION: DATE OF DICTATION: 11/21/2016 INFECTIOUS DISEASE CONSULTATION HISTORY OF PRESENT ILLNESS: Patient is an 89-year-old female evaluated for pneumonia. The patient was admitted to the hospital on 11/17/2016 with a 2-week history of cough productive of yellowish sputum. She had seen her primary care physician and was prescribed some cough suppressant and nasal spray without significant relief. She returned where chest x-ray was done. She was diagnosed with pneumonia and was referred to the emergency room for further evaluation. The patient was admitted to the hospital. CAT scan showed bilateral patchy infiltrates. Her course was complicated by hyponatremia. She was empirically treated with Zithromax and ceftriaxone with clinical improvement. She has now developed elevated liver enzymes. She denies any abdominal pain, no nausea or vomiting. Sonogram of the abdomen was performed and showed a contracted gallbladder with gallstones and sludge. No intrahepatic biliary duct dilatation was noted. She denies any ill contacts. She is a nonsmoker. She lives at home. She has had no recent hospital admissions, no recent travel. Her recently after a long illness. PAST MEDICAL HISTORY: Positive for hypertension, hyperlipidemia. ALLERGIES: No known drug allergies. MEDICATION: Include hydrochlorothiazide, lovastatin, olmesartan. SOCIAL HISTORY: As above. . Nonsmoker. Lives at home. SYSTEMS REVIEW: Neurologic: No loss of consciousness, seizure activity, or focal weakness. Cardiac: Negative chest pain or palpitations. Respiratory: As per HPI. Gastrointestinal: As per HPI. Genitourinary: Negative for urinary tract infection. LABORATORY DATA: White count 15.8, hematocrit 32.4, platelet count 472. BUN 17, creatinine 0.6. Urinalysis: 0-2 white cells. Blood cultures pending. PHYSICAL EXAMINATION: General: She is awake and alert. She is in no acute distress. Vital signs: T-max 100, blood pressure 142/77, pulse 68 regular, respirations 18 per minute. HEENT: Sclerae anicteric. Oropharynx negative. Neck: Supple. Cardiovascular: Heart sounds S1, S2. Respiratory: Lungs crepitations at the bases bilaterally. Abdomen: Soft. No tenderness elicited. No mass, rebound, or rigidity. No right upper quadrant tenderness. Negative Barrett sign. Extremities: Negative for edema. IMPRESSION: 1. Bilateral community acquired versus atypical pneumonia. 2. Elevated liver enzymes, possibly secondary to medications. 3. Leukocytosis. 4. Status post hyponatremia. Agree with substituting Zosyn in this patient with elevated liver enzymes. Obtain sputum culture. Monitor liver enzymes. Gastrointestinal evaluation. Will follow. Thank you for the kind referral. SATHISH ORDAZ M.D. RAOUL/[id number]
[2016-11-21] MEDS: PIPERACILLIN/TAZOB 3.375 GM 3.375 GM in DEXTROSE 5%-WATER - 50 ML IVPB SCH (18:41)
--- NOTE | 2016-11-21 18:58 | PN ---
Teaching Attending Note Name of Resident: Nash Marquez ATTENDING PHYSICIAN STATEMENT I saw and evaluated the patient. I reviewed the resident's note and discussed the case with the resident. I agree with the resident's findings and plan as documented. SUBJECTIVE: Comfortable with no acute distress, no shortness breath. OBJECTIVE: Vital Signs Temperature 98.5 F 11/21/16 14:36 Pulse Rate 80 11/21/16 14:36 Respiratory Rate 18 11/21/16 14:36 Blood Pressure 159/96 11/21/16 14:36 O2 Sat by Pulse Oximetry (%) 92 L 11/21/16 10:00 CBCD WBC 15.8 K/mm3 (4.0-10.0) H 11/21/16 06:58 RBC 3.56 M/mm3 (3.60-5.2) L 11/21/16 06:58 Hgb 11.1 GM/dL (10.7-15.3) 11/21/16 06:58 Hct 32.4 % (32.4-45.2) 11/21/16 06:58 MCV 91.1 fl (80-96) 11/21/16 06:58 MCHC 34.2 g/dl (32.0-36.0) 11/21/16 06:58 RDW 14.0 % (11.6-15.6) 11/21/16 06:58 Plt Count 472 K/MM3 (134-434) H 11/21/16 06:58 MPV 7.2 fl (7.5-11.1) L 11/21/16 06:58 CMP Sodium 130 mmol/L (136-145) L 11/21/16 06:58 Potassium 4.0 mmol/L (3.5-5.1) 11/21/16 06:58 Chloride 90 mmol/L (98-107) L 11/21/16 06:58 Carbon Dioxide 28 mmol/L (21-32) 11/21/16 06:58 Anion Gap 12 (8-16) 11/21/16 06:58 BUN 17 mg/dL (7-18) D 11/21/16 06:58 Creatinine 0.6 mg/dL (0.55-1.02) 11/21/16 06:58 Creat Clearance w eGFR > 60 (>60) 11/21/16 06:58 Random Glucose 82 mg/dL (74-106) 11/21/16 06:58 Calcium 8.0 mg/dL (8.5-10.1) L 11/21/16 06:58 Total Bilirubin 0.5 mg/dL (0.2-1.0) 11/21/16 06:58 AST 130 U/L (15-37) H D 11/21/16 06:58 ALT 298 U/L (12-78) H 11/21/16 06:58 Alkaline Phosphatase 194 U/L (45-117) H 11/21/16 06:58 Total Protein 5.7 g/dl (6.4-8.2) L 11/21/16 06:58 Albumin 2.1 g/dl (3.4-5.0) L 11/21/16 06:58 Current Medications Generic Name Dose Route Start Last Admin Trade Name Freq PRN Reason Stop Dose Admin Benzocaine/Menthol 1 each 11/19/16 18:12 11/20/16 06:33 Cepacol Lozenge - MM 1 each PRN PRN Administration SORE THROAT Guaifenesin/Codeine Phosphate 5 ml 11/20/16 18:32 Robitussin Ac - PO TID PRN COUGH Heparin Sodium (Porcine) 5,000 unit 11/19/16 22:00 11/21/16 09:35 Heparin - SQ 5,000 unit BID [facility] Administration Piperacillin Sod/Tazobactam Sod 50 mls @ 100 mls/hr 11/21/16 14:30 11/21/16 18: 41 Zosyn 3.375gm Ivpb (Pre-Docked) IVPB 100 mls/hr Q8H-IV [facility] Administration Protocol Sodium Chloride 1,000 mls @ 40 mls/hr 11/21/16 17:30 11/21/16 18:40 Normal Saline - IV 40 mls/hr ASDIR [facility] Administration Insulin Aspart 1 vial 11/20/16 11:00 11/21/16 17:22 Novolog Vial Sliding Scale - SQ Not Given ACHS [facility] Protocol Valsartan 160 mg 11/20/16 10:00 11/21/16 09:35 Diovan - PO 160 mg DAILY [facility] Administration Home Medications Medication Instructions Recorded Hydrochlorothiazide [Hctz -] 12.5 mg PO DAILY 11/17/16 Lovastatin [Altoprev] 40 mg PO DAILY 11/17/16 Olmesartan Medoxomil 20 mg PO DAILY 11/17/16 Azelastine HCl 2 puff IN BID 11/18/16 Benzonatate 100 mg PO TID 11/18/16 CHEST: decreased BS BL HISTORY PROVIDED: Bilateral pneumonia TECHNIQUE: Sequential axial images were obtained from the thoracic inlet through the domes of the diaphragm. Evaluation of the lung luna demonstrates extensive consolidation within the posterior segment of the right upper lobe. Dense consolidation is also identified within the right lower lobe. The middle lobe is largely clear. Less extensive, patchy infiltrates are seen within the left upper and lower lobes. No pulmonary masses or pleural effusions are present. Examination of the mediastinum demonstrates prominent lymph nodes that include a 2.1 cm subcarinal node and a 1.5 cm precarinal node. The etiology and significance of this adenopathy is uncertain. There is no evidence of mediastinal masses or fluid collections. The heart is not significantly enlarged. Evaluation of the upper abdomen demonstrates no acute abnormalities. IMPRESSION: 1. Bilateral consolidation consistent with pneumonia. These changes are most pronounced within the right upper and lower lobes. Clinical correlation and follow-up recommended. 2. Mild mediastinal lymphadenopathy. Please see above discussion. ASSESSMENT AND PLAN: 89 y/o lady with h/o HTN, and HLP who presented with cough and was found tohave b?l infiltrates and severe hyponatremia # Acute transaminitis trending down , on Zosyn IV now continue as per ID ,will trend LFTs , will discontinue IV rocephin,and zithromax . # Bilateral consolidation consistent with pneumonia. will discontinue Rocephin since elevated transaminits and start the patient on Zosyn IV. Negative for Legionella and strept.pneumo. ID consult for further management. # Acute severe hyponatremia improved was Likely due to dehydration. continue to hold diuretic. Nephro is on the case. # HTN: Continue home meds. # Acute Leukocytosis: off steroid now, possible due to PNeumonia DVT PX : Heparin sq
[2016-11-22] MEDS: INSULIN SLIDING SCALE (NOVOLOG) 1 VIAL SQ SCH ×5 (01:13→23:12)
[2016-11-22] MEDS: PIPERACILLIN/TAZOB 3.375 GM 50 ML IVPB SCH ×3 (02:57→19:28)
[2016-11-22 07:02] LABS: MCH 30.9 pg (25.7-33.7); MCHC 33.7 g/dl (32.0-36.0); MEAN CELL VOLUME 91.7 fl (80-96); MEAN PLT VOLUME 6.9 fl (7.5-11.1); PLATELET COUNT 488 K/MM3 (134-434); RDW 13.9 % (11.6-15.6); WHITE BLOOD COUNT 12.6 K/mm3 (4.0-10.0)
[2016-11-22 07:30] LABS: ALK PHOS 151 U/L (45-117); ANION GAP 11 (8-16); BILIRUBIN,TOTAL 0.8 mg/dL (0.2-1.0); CALCIUM 7.2 mg/dL (8.5-10.1); CO2 28 mmol/L (21-32); CREATININE 0.6 mg/dL (0.55-1.02); GLUCOSE,RANDOM 96 mg/dL (74-106); SGOT/AST 60 U/L (15-37); SGPT/ALT 193 U/L (12-78); TOT PROT 5.3 g/dl (6.4-8.2)
--- NOTE | 2016-11-22 10:38 | PN ---
Progress Note, Physician History of Present Illness: Renal F/U Pt has just returned from the Ct Scan dept after having a contrast Ct scan of the Abd and Pelvis which showed a distended U Bladder and right hydronephosis as well as a distended left renal pelvis. Following the Ct Scan she had to void a large amount. No C/O N/V or diarrhea - Current Medication List Current Medications: Active Medications Benzocaine/Menthol (Cepacol Lozenge -) 1 each MM PRN PRN PRN Reason: SORE THROAT Last Admin: 11/20/16 06:33 Dose: 1 each Guaifenesin/Codeine Phosphate (Robitussin Ac -) 5 ml PO TID PRN PRN Reason: COUGH Heparin Sodium (Porcine) (Heparin -) 5,000 unit SQ BID [facility] Last Admin: 11/21/16 22:27 Dose: 5,000 unit Piperacillin Sod/Tazobactam Sod (Zosyn 3.375gm Ivpb (Pre-Docked)) 50 mls @ 100 mls/hr IVPB Q8H-IV [facility] PRN Reason: Protocol Last Admin: 11/22/16 02:57 Dose: 100 mls/hr Sodium Chloride (Normal Saline -) 1,000 mls @ 40 mls/hr IV ASDIR [facility] Last Admin: 11/21/16 18:40 Dose: 40 mls/hr Insulin Aspart (Novolog Vial Sliding Scale -) 1 vial SQ ACHS [facility] PRN Reason: Protocol Last Admin: 11/22/16 06:15 Dose: Not Given Valsartan (Diovan -) 160 mg PO DAILY [facility] Last Admin: 11/21/16 09:35 Dose: 160 mg - Objective Vital Signs: Vital Signs Temperature 98.6 F 11/22/16 10:00 Pulse Rate 80 11/22/16 10:00 Respiratory Rate 18 11/22/16 10:00 Blood Pressure 149/86 11/22/16 10:00 O2 Sat by Pulse Oximetry (%) 95 11/21/16 21:00 Constitutional: Yes: No Distress Cardiovascular: Yes: S1, S2 Respiratory: Yes: CTA Bilaterally Gastrointestinal: Yes: Soft, Distention Genitourinary: Yes: Other (Slight dullness suprapubically) Edema: LLE: 1+, RLE: 1+ Labs: CBC, BMP 11/22/16 06:00 11/22/16 06:00 INR, PTT INR 1.20 (0.82-1.09) H 11/20/16 06:30 Assessment/Plan Impression Hyponatremia Urinary retention on Ct Scan PNA Mediastinal lymphadenopathy HTN Hyperlipidemia Plan Bedside Post Void Bladder scan and if greater than 200 cc to insert a vega D/C IVF Rpt labs in am Dr Lopez
[2016-11-22] MEDS: HEPARIN NA (PORCINE) 5,000 UNITS/ML 1ML VIAL SQ SCH ×2 (10:51→22:08)
[2016-11-22] MEDS: VALSARTAN 160 MG TABLET (UD) PO SCH (10:52)
--- NOTE | 2016-11-22 11:12 | PN ---
Physical Exam: SUBJECTIVE: Patient seen and examined OBJECTIVE: Vital Signs Temperature 98.6 F 11/22/16 10:00 Pulse Rate 80 11/22/16 10:00 Respiratory Rate 18 11/22/16 10:00 Blood Pressure 149/86 11/22/16 10:00 O2 Sat by Pulse Oximetry (%) 95 11/21/16 21:00 GENERAL: The patient is awake, alert, and fully oriented, in no acute distress. HEAD: Normal with no signs of trauma. EYES: PERRL, extraocular movements intact, sclera anicteric, conjunctiva clear. ENT: Ears normal, oropharynx clear without exudates, moist mucous membranes. NECK: Trachea midline, full range of motion, supple. LUNGS: Breath sounds equal, clear to auscultation bilaterally, no wheezes, no crackles, no accessory muscle use. HEART: Regular rate and rhythm, S1, S2 positve , Woody 2/6, no rub or gallop. ABDOMEN: Soft, nontender, nondistended, normoactive bowel sounds, no guarding, no rebound, no hepatosplenomegaly, no masses. EXTREMITIES: 2+ pulses, warm, well-perfused, no edema. NEUROLOGICAL: Cranial nerves II through XII grossly intact. Normal speech, gait not observed. PSYCH: Normal mood, normal affect. SKIN: Warm, dry, normal turgor, no rashes or lesions noted Gu: positive fro vega Laboratory Results - last 24 hr 11/19/16 11/21/16 11/21/16 05:30 06:58 12:07 WBC 15.8 H RBC 3.56 L Hgb 11.1 Hct 32.4 MCV 91.1 MCH 31.2 MCHC 34.2 RDW 14.0 Plt Count 472 H MPV 7.2 L Neutrophils % 65.0 Lymphocytes % 18.0 D Monocytes % 6.0 Band Neutrophils 1.0 Metamyelocytes 1 D Myelocytes 7 H Differential Comment Manual diff done Plasma Cells 1 Platelet Estimate Adequate Sodium Potassium Chloride Carbon Dioxide Anion Gap BUN Creatinine Creat Clearance w eGFR POC Glucometer 103 Random Glucose Calcium Total Bilirubin AST ALT Alkaline Phosphatase Total Protein Albumin M.pneumoniae IgM Titer <770 11/21/16 11/21/16 11/22/16 17:10 23:18 06:00 WBC 12.6 H RBC 3.37 L Hgb 10.4 L Hct 30.9 L MCV 91.7 MCH 30.9 MCHC 33.7 RDW 13.9 Plt Count 488 H MPV 6.9 L Neutrophils % Y Lymphocytes % Y Monocytes % Band Neutrophils Metamyelocytes Myelocytes Differential Comment Plasma Cells Platelet Estimate Sodium Potassium Chloride Carbon Dioxide Anion Gap BUN Creatinine Creat Clearance w eGFR POC Glucometer 128 101 Random Glucose Calcium Total Bilirubin AST ALT Alkaline Phosphatase Total Protein Albumin M.pneumoniae IgM Titer 11/22/16 11/22/16 06:00 06:10 WBC RBC Hgb Hct MCV MCH MCHC RDW Plt Count MPV Neutrophils % Lymphocytes % Monocytes % Band Neutrophils Metamyelocytes Myelocytes Differential Comment Plasma Cells Platelet Estimate Sodium 131 L Potassium 3.8 Chloride 92 L Carbon Dioxide 28 Anion Gap 11 BUN 11 D Creatinine 0.6 Creat Clearance w eGFR > 60 POC Glucometer 105 Random Glucose 96 Calcium 7.2 L Total Bilirubin 0.8 D AST 60 H D ALT 193 H D Alkaline Phosphatase 151 H D Total Protein 5.3 L Albumin 2.0 L M.pneumoniae IgM Titer Active Medications Generic Name Dose Route Start Last Admin Trade Name Freq PRN Reason Stop Dose Admin Benzocaine/Menthol 1 each 11/19/16 18:12 11/20/16 06:33 Cepacol Lozenge - MM 1 each PRN PRN Administration SORE THROAT Guaifenesin/Codeine Phosphate 5 ml 11/20/16 18:32 Robitussin Ac - PO TID PRN COUGH Heparin Sodium (Porcine) 5,000 unit 11/19/16 22:00 11/22/16 10:51 Heparin - SQ 5,000 unit BID [facility] Administration Piperacillin Sod/Tazobactam Sod 50 mls @ 100 mls/hr 11/21/16 14:30 11/22/16 10: 52 Zosyn 3.375gm Ivpb (Pre-Docked) IVPB 100 mls/hr Q8H-IV [facility] Administration Protocol Sodium Chloride 1,000 mls @ 40 mls/hr 11/21/16 17:30 11/21/16 18:40 Normal Saline - IV 40 mls/hr ASDIR [facility] Administration Insulin Aspart 1 vial 11/20/16 11:00 11/22/16 06:15 Novolog Vial Sliding Scale - SQ Not Given ACHS [facility] Protocol Valsartan 160 mg 11/20/16 10:00 11/22/16 10:52 Diovan - PO 160 mg DAILY [facility] Administration Laboratory Tests 11/17/16 11/17/16 11/17/16 13:41 13:41 19:40 WBC Plt Count Band Neutrophils 27.0 H Metamyelocytes Myelocytes Sodium 115 L* 120 L* Chloride Hemoglobin A1c % Calcium AST 40 ALT 45 H Alkaline Phosphatase 91 Total Protein 11/17/16 11/18/16 11/18/16 22:30 00:55 04:28 WBC Plt Count Band Neutrophils Metamyelocytes Myelocytes Sodium 120 L* 127 L 130 L Chloride Hemoglobin A1c % Calcium AST ALT Alkaline Phosphatase Total Protein 11/18/16 11/18/16 11/18/16 06:30 06:50 11:00 WBC Plt Count Band Neutrophils Metamyelocytes Myelocytes Sodium 128 L 129 L 128 L Chloride Hemoglobin A1c % Calcium AST ALT Alkaline Phosphatase Total Protein 11/18/16 11/18/16 11/18/16 12:00 16:30 21:00 WBC 11.3 H Plt Count Band Neutrophils Metamyelocytes Myelocytes Sodium 127 L 123 L* Chloride Hemoglobin A1c % Calcium 7.8 L AST ALT Alkaline Phosphatase Total Protein 11/19/16 11/19/16 11/19/16 01:15 05:30 05:30 WBC 11.5 H Plt Count Band Neutrophils Metamyelocytes Myelocytes Sodium 130 L 128 L Chloride 92 L Hemoglobin A1c % Calcium 8.3 L AST 91 H ALT 119 H Alkaline Phosphatase 181 H Total Protein 5.7 L 11/19/16 11/20/16 11/20/16 13:28 00:45 06:30 WBC Plt Count Band Neutrophils Metamyelocytes Myelocytes Sodium 125 L 129 L Chloride Hemoglobin A1c % 6.7 H Calcium 8.1 L AST ALT Alkaline Phosphatase Total Protein 11/20/16 11/20/16 11/21/16 06:30 06:30 06:58 WBC 15.9 H D Plt Count 445 H Band Neutrophils Metamyelocytes 5 H Myelocytes 6 H Sodium 131 L Chloride Hemoglobin A1c % Calcium AST 287 H D 130 H D ALT 368 H D 298 H Alkaline Phosphatase 215 H 194 H Total Protein 11/22/16 06:00 WBC Plt Count Band Neutrophils Metamyelocytes Myelocytes Sodium Chloride Hemoglobin A1c % Calcium AST 60 H D ALT 193 H D Alkaline Phosphatase 151 H D Total Protein HISTORY PROVIDED: Bilateral pneumonia TECHNIQUE: Sequential axial images were obtained from the thoracic inlet through the domes of the diaphragm. Evaluation of the lung luna demonstrates extensive consolidation within the posterior segment of the right upper lobe. Dense consolidation is also identified within the right lower lobe. The middle lobe is largely clear. Less extensive, patchy infiltrates are seen within the left upper and lower lobes. No pulmonary masses or pleural effusions are present. Examination of the mediastinum demonstrates prominent lymph nodes that include a 2.1 cm subcarinal node and a 1.5 cm precarinal node. The etiology and significance of this adenopathy is uncertain. There is no evidence of mediastinal masses or fluid collections. The heart is not significantly enlarged. Evaluation of the upper abdomen demonstrates no acute abnormalities. IMPRESSION: 1. Bilateral consolidation consistent with pneumonia. These changes are most pronounced within the right upper and lower lobes. Clinical correlation and follow-up recommended. 2. Mild mediastinal lymphadenopathy. Please see above discussion. ASSESSMENT AND PLAN: 89 y/o lady with h/o HTN, and HLP who presented with cough and was found tohave b?l infiltrates and severe hyponatremia # Acute urinary retention : vega catheter was inserted, will add flomax and try weather can urinate without the vega. will get urology to see her. Urinary consult for urinary retention and stone, hydronephrosis # Acute transaminitis trending down , repeat LFTs in am On Zosyn IV now continue as per ID ,will trend LFTs , s/p IV rocephin,and zithromax . # Bilateral consolidation consistent with pneumonia. will discontinue Rocephin since elevated transaminits ,started the patient on Zosyn IV. Negative for Legionella and strept.pneumo. ID consult for further management appreciated # Acute severe hyponatremia improving was Likely due to dehydration. continue to hold diuretic. Nephro is on the case. # HTN: Continue home meds. # Acute Leukocytosis: off steroid now, possible due to PNeumonia , trend wbc. DVT PX : Heparin sq Visit type - Emergency Visit Emergency Visit: Yes ED Registration Date: 11/17/16 Care time: The patient presented to the Emergency Department on the above date and was hospitalized for further evaluation of their emergent condition. - New Patient This patient is new to me today: No - Critical Care Critical Care patient: No
--- NOTE | 2016-11-22 11:18 | PN ---
Progress Note, Physician History of Present Illness: PULMONARY ALERT,NO DISTRESS,LESS COUGH,-SOB, LFTS IMPROVING - Current Medication List Current Medications: Active Medications Benzocaine/Menthol (Cepacol Lozenge -) 1 each MM PRN PRN PRN Reason: SORE THROAT Last Admin: 11/20/16 06:33 Dose: 1 each Guaifenesin/Codeine Phosphate (Robitussin Ac -) 5 ml PO TID PRN PRN Reason: COUGH Heparin Sodium (Porcine) (Heparin -) 5,000 unit SQ BID [facility] Last Admin: 11/22/16 10:51 Dose: 5,000 unit Piperacillin Sod/Tazobactam Sod (Zosyn 3.375gm Ivpb (Pre-Docked)) 50 mls @ 100 mls/hr IVPB Q8H-IV [facility] PRN Reason: Protocol Last Admin: 11/22/16 10:52 Dose: 100 mls/hr Sodium Chloride (Normal Saline -) 1,000 mls @ 40 mls/hr IV ASDIR [facility] Last Admin: 11/21/16 18:40 Dose: 40 mls/hr Insulin Aspart (Novolog Vial Sliding Scale -) 1 vial SQ ACHS [facility] PRN Reason: Protocol Last Admin: 11/22/16 06:15 Dose: Not Given Valsartan (Diovan -) 160 mg PO DAILY [facility] Last Admin: 11/22/16 10:52 Dose: 160 mg - Objective Vital Signs: Vital Signs Temperature 98.6 F 11/22/16 10:00 Pulse Rate 80 11/22/16 10:00 Respiratory Rate 18 11/22/16 10:00 Blood Pressure 149/86 11/22/16 10:00 O2 Sat by Pulse Oximetry (%) 95 11/21/16 21:00 Constitutional: Yes: Well Nourished, Calm Eyes: Yes: WNL HENT: Yes: WNL, Tonsillar Exudate Cardiovascular: Yes: Regular Rate and Rhythm, S1, S2 Respiratory: Yes: Diminished Gastrointestinal: Yes: Normal Bowel Sounds, Soft Extremities: Yes: WNL Edema: No Labs: CBC, BMP 11/22/16 06:00 11/22/16 06:00 INR, PTT INR 1.20 (0.82-1.09) H 11/20/16 06:30 - ....Imaging Cat Scan: Report Reviewed Assessment/Plan A/P Pneumonia clinically improving Elevated LFTs improving HTN Hyperlipidemia R Hydronephrosis Hyponatremia - continue antibiotics as per id - IVF per renal - outpt follow up of lymphadenopathy - DVT prophylaxis - monitor LFTS,NA - chest x-ray am pa+lateral DR CARTER
--- NOTE | 2016-11-22 11:39 | PN ---
Progress Note, Physician History of Present Illness: Awake, alert No complaints No c/o chest pain/ dyspnea/ cough No abdominal pain, N/V No fever/ chills - Current Medication List Current Medications: Active Medications Benzocaine/Menthol (Cepacol Lozenge -) 1 each MM PRN PRN PRN Reason: SORE THROAT Last Admin: 11/20/16 06:33 Dose: 1 each Guaifenesin/Codeine Phosphate (Robitussin Ac -) 5 ml PO TID PRN PRN Reason: COUGH Heparin Sodium (Porcine) (Heparin -) 5,000 unit SQ BID [facility] Last Admin: 11/22/16 10:51 Dose: 5,000 unit Piperacillin Sod/Tazobactam Sod (Zosyn 3.375gm Ivpb (Pre-Docked)) 50 mls @ 100 mls/hr IVPB Q8H-IV [facility] PRN Reason: Protocol Last Admin: 11/22/16 10:52 Dose: 100 mls/hr Insulin Aspart (Novolog Vial Sliding Scale -) 1 vial SQ ACHS [facility] PRN Reason: Protocol Last Admin: 11/22/16 06:15 Dose: Not Given Valsartan (Diovan -) 160 mg PO DAILY [facility] Last Admin: 11/22/16 10:52 Dose: 160 mg - Objective Vital Signs: Vital Signs Temperature 98.6 F 11/22/16 10:00 Pulse Rate 80 11/22/16 10:00 Respiratory Rate 18 11/22/16 10:00 Blood Pressure 149/86 11/22/16 10:00 O2 Sat by Pulse Oximetry (%) 95 11/21/16 21:00 Constitutional: Yes: No Distress Eyes: Yes: Conjunctiva Clear Cardiovascular: Yes: Regular Rate and Rhythm, S1, S2 Respiratory: Yes: Rhonchi Gastrointestinal: Yes: Normal Bowel Sounds, Soft. No: Tenderness Edema: Yes Edema: LLE: 1+, RLE: 1+ Labs: CBC, BMP 11/22/16 06:00 11/22/16 06:00 INR, PTT INR 1.20 (0.82-1.09) H 11/20/16 06:30 Assessment/Plan Bilateral pneumonia Elevated LFTs- improving Possible adverse drug reaction ( zithromax/ ceftriaxone) Hyponatremia- resolved Leukocytosis- improved Hydronephrosis on CT Possible nephrolith/ obstructive uropathy Continue empiric zosyn Monitor LFTs Consider Urology evaluation
[2016-11-22 13:06] LABS: METAMYELOCYTE 4 % (0-2); PLATELET COMMENT2 NO CLUMPING NOTED; PLATELET COMMENT3 NO CLOTTING DETECTED; PLATELET ESTIMATE SLT INCREASED (NORMAL); TOXIC GRANULATION FEW
[2016-11-22] MEDS ORDERED: SODIUM CHLORIDE 1,000 ML IV SCH (18:30)
[2016-11-22] MEDS: TAMSULOSIN HCL 0.4 MG CAP.ER.24H (FP) PO SCH (19:28)
[2016-11-22] MEDS: amLODIPine BESYLATE 5 MG TABLET (FP) PO SCH (19:29)
[2016-11-23] MEDS: PIPERACILLIN/TAZOB 3.375 GM 50 ML IVPB SCH ×3 (02:36→17:19)
[2016-11-23] MEDS: INSULIN SLIDING SCALE (NOVOLOG) 1 VIAL SQ SCH ×4 (06:14→21:18)
[2016-11-23] MEDS: TAMSULOSIN HCL 0.4 MG CAP.ER.24H (FP) PO SCH (08:47)
[2016-11-23 08:58] LABS: MCH 31.5 pg (25.7-33.7); MEAN CELL VOLUME 92.7 fl (80-96); MEAN PLT VOLUME 6.8 fl (7.5-11.1); PLATELET COUNT 550 K/MM3 (134-434); RDW 14.2 % (11.6-15.6); WHITE BLOOD COUNT 11.9 K/mm3 (4.0-10.0)
[2016-11-23 09:24] LABS: ALBUMIN 2.2 g/dl (3.4-5.0); ANION GAP 10 (8-16); CO2 27 mmol/L (21-32); CREATININE 0.6 mg/dL (0.55-1.02); GLUCOSE,RANDOM 100 mg/dL (74-106); SGOT/AST 41 U/L (15-37); SGPT/ALT 150 U/L (12-78)
[2016-11-23 09:26] LABS: ALK PHOS 141 U/L (45-117); BILIRUBIN,TOTAL 0.9 mg/dL (0.2-1.0)
[2016-11-23 09:43] LABS: METAMYELOCYTE 3 % (0-2); PLATELET ESTIMATE INCREASED (NORMAL)
[2016-11-23] MEDS: amLODIPine BESYLATE 5 MG TABLET (FP) PO SCH (09:54)
[2016-11-23] MEDS: VALSARTAN 160 MG TABLET (UD) PO SCH (09:54)
[2016-11-23] MEDS: HEPARIN NA (PORCINE) 5,000 UNITS/ML 1ML VIAL SQ SCH ×2 (09:54→21:17)
--- NOTE | 2016-11-23 10:22 | PN ---
Progress Note, Physician History of Present Illness: Renal F/U Pt had a post void residual of 600 cc so vega inserted and left in place Today's serum Na 132 on 800 cc fluid restriction She has less peripheral edema - Current Medication List Current Medications: Active Medications Amlodipine Besylate (Norvasc -) 5 mg PO DAILY [facility] Last Admin: 11/23/16 09:54 Dose: 5 mg Benzocaine/Menthol (Cepacol Lozenge -) 1 each MM PRN PRN PRN Reason: SORE THROAT Last Admin: 11/20/16 06:33 Dose: 1 each Heparin Sodium (Porcine) (Heparin -) 5,000 unit SQ BID [facility] Last Admin: 11/23/16 09:54 Dose: 5,000 unit Piperacillin Sod/Tazobactam Sod (Zosyn 3.375gm Ivpb (Pre-Docked)) 50 mls @ 100 mls/hr IVPB Q8H-IV [facility] PRN Reason: Protocol Last Admin: 11/23/16 09:54 Dose: 100 mls/hr Insulin Aspart (Novolog Vial Sliding Scale -) 1 vial SQ ACHS [facility] PRN Reason: Protocol Last Admin: 11/23/16 06:14 Dose: Not Given Tamsulosin HCl (Flomax -) 0.4 mg PO DAILY@0830 [facility] Last Admin: 11/23/16 08:47 Dose: 0.4 mg Valsartan (Diovan -) 160 mg PO DAILY [facility] Last Admin: 11/23/16 09:54 Dose: 160 mg - Objective Vital Signs: Vital Signs Temperature 99.8 F H 11/23/16 10:00 Pulse Rate 80 11/23/16 10:00 Respiratory Rate 20 11/23/16 10:00 Blood Pressure 158/74 11/23/16 10:00 O2 Sat by Pulse Oximetry (%) 92 L 11/22/16 21:00 Constitutional: Yes: No Distress Cardiovascular: Yes: S1, S2 Respiratory: Yes: CTA Bilaterally Gastrointestinal: Yes: Soft. No: Tenderness, Rebound Edema: LLE: Trace, RLE: Trace Labs: CBC, BMP 11/23/16 07:50 11/23/16 07:50 INR, PTT INR 1.20 (0.82-1.09) H 11/20/16 06:30 Assessment/Plan Impression Hyponatremia slowly improving Urinary retention PNA Mediastinal lymphadenopathy HTN Hyperlipidemia Plan Fluid restriction liberalized to 1.2 liters per day UA and UC ordered Urology to see pt Rpt labs in am Dr Lopez
--- NOTE | 2016-11-23 10:47 | PN ---
Progress Note, Physician History of Present Illness: PULMONARY ALERT,OOB-CHAIR,-RESP DISTRESS,LESS COUGH,T99.8 - Current Medication List Current Medications: Active Medications Amlodipine Besylate (Norvasc -) 5 mg PO DAILY [facility] Last Admin: 11/23/16 09:54 Dose: 5 mg Benzocaine/Menthol (Cepacol Lozenge -) 1 each MM PRN PRN PRN Reason: SORE THROAT Last Admin: 11/20/16 06:33 Dose: 1 each Heparin Sodium (Porcine) (Heparin -) 5,000 unit SQ BID [facility] Last Admin: 11/23/16 09:54 Dose: 5,000 unit Piperacillin Sod/Tazobactam Sod (Zosyn 3.375gm Ivpb (Pre-Docked)) 50 mls @ 100 mls/hr IVPB Q8H-IV [facility] PRN Reason: Protocol Last Admin: 11/23/16 09:54 Dose: 100 mls/hr Insulin Aspart (Novolog Vial Sliding Scale -) 1 vial SQ ACHS [facility] PRN Reason: Protocol Last Admin: 11/23/16 06:14 Dose: Not Given Tamsulosin HCl (Flomax -) 0.4 mg PO DAILY@0830 [facility] Last Admin: 11/23/16 08:47 Dose: 0.4 mg Valsartan (Diovan -) 160 mg PO DAILY [facility] Last Admin: 11/23/16 09:54 Dose: 160 mg - Objective Vital Signs: Vital Signs Temperature 99.8 F H 11/23/16 10:00 Pulse Rate 80 11/23/16 10:00 Respiratory Rate 20 11/23/16 10:00 Blood Pressure 158/74 11/23/16 10:00 O2 Sat by Pulse Oximetry (%) 92 L 11/22/16 21:00 Constitutional: Yes: Well Nourished, Calm Eyes: Yes: WNL HENT: Yes: WNL, Tonsillar Exudate Cardiovascular: Yes: Regular Rate and Rhythm, S1, S2 Respiratory: Yes: Rales (FEW CRACKLES BILATERALLY) Gastrointestinal: Yes: Normal Bowel Sounds, Soft Extremities: Yes: WNL Edema: Yes Labs: CBC, BMP 11/23/16 07:50 11/23/16 07:50 INR, PTT INR 1.20 (0.82-1.09) H 11/20/16 06:30 - ....Imaging Chest X-ray: Report Reviewed, Image Reviewed (IMPROVING INFILTRATES) Assessment/Plan A/P Pneumonia clinically improving Elevated LFTs improving HTN Hyperlipidemia R Hydronephrosis Hyponatremia - continue antibiotics as per id - IVF per renal - outpt follow up of lymphadenopathy - DVT prophylaxis - monitor LFTS,NA DR CARTER
--- NOTE | 2016-11-23 11:15 | CON.GU ---
Consult Consult Specialty:: Urology Reason for Consultation:: Urinary retention - History of Present Illness Chief Complaint: Urinary retention - History Source History Provided By: Patient, Medical Record - Past Medical History Cardio/Vascular: Yes: HTN, Hyperlipdemia Gastrointestinal: No: Ascites, Cancer, Constipation, Crohn's Disease, Diverticulitis, Diverticulosis, Esophageal Varices, Gastritis, GERD, GI Bleed, Hemorrhoids, Hiatal Hernia, Inflamatory Bowel Disease, Irritable Bowel Disease, Pancreatitis, Peptic Ulcer Disease, Ulcerative Colitis, Other Hepatobiliary: No: Cirrhosis, Cholelithiasis, Cholecystitis, Choledocholithiasis , Hepatitis A, Hepatitis B, Hepatitis C, Other ...: No Musculoskeletal: No: Bursitis, Chronic low back pain, Hemiparesis, Hemiplegia, Osteoarthritis, Paraplegia, Other Rheumatology: No: Fibromyalgia, Gout, Lupus, Rheumatoid Arthritis, Sarcoidosis, Vasculitis, Other ENT: No: Allergic Rhinitis, Sinusitis, Other Endocrine: No: Goltry's Disease, [place]'s Disease, Diabetes Insipidus, Diabetes Mellitus, Hyperparathyroidism, Hyperthyroidism, Hypothyroidism, Osteopenia, SIADH, Other - Past Surgical History Past Surgical History: Yes: None (patient denies a surgical history ) - Alcohol/Substance Use Hx Alcohol Use: Yes (nightly) - Smoking History Smoking history: Never smoked Home Medications - Allergies Allergies/Adverse Reactions: Allergies Allergy/AdvReac Type Severity Reaction Status Date / Time No Known Allergies Allergy Verified 11/17/16 13:04 - Home Medications Home Medications: Ambulatory Orders Hydrochlorothiazide [Hctz -] 12.5 mg PO DAILY 11/17/16 Lovastatin [Altoprev] 40 mg PO DAILY 11/17/16 Olmesartan Medoxomil 20 mg PO DAILY 11/17/16 Azelastine HCl 2 puff IN BID 11/18/16 Benzonatate 100 mg PO TID 11/18/16 Physical Exam- Vital Signs: Vital Signs Temperature 99.8 F H 11/23/16 10:00 Pulse Rate 80 11/23/16 10:00 Respiratory Rate 20 11/23/16 10:00 Blood Pressure 158/74 11/23/16 10:00 O2 Sat by Pulse Oximetry (%) 92 L 11/22/16 21:00 Constitutional: Yes: No Distress Eyes: Yes: Conjunctiva Clear Renal/: Yes: Vega Present (No CVAT) Labs: CBC, BMP 11/23/16 07:50 11/23/16 07:50 Imaging - Results Cat Scan: Report Reviewed Problem List - Problems (1) Urinary retention Assessment/Plan: 89 yo female w distended bladder on ct now w vega to SD Mild right hydro [id number] non pysiologic No flank pain or CVAT pelvic calc apparently outside collecting system Cont flomax and vega Would D/C vega in 48 hours Will likely require outpatient urodynamics Code(s): R33.9 - RETENTION OF URINE, UNSPECIFIED
[2016-11-23 12:10] LABS: URINE APPEARANCE CLEAR; URINE BILIRUBIN NEGATIVE (NEGATIVE); URINE BLOOD 3+ (NEGATIVE); URINE COLOR YELLOW; URINE GLUCOSE (UA) NEGATIVE (NEGATIVE); URINE KETONE TRACE (NEGATIVE); URINE LEUK ESTERASE TRACE (NEGATIVE); URINE NITRITE NEGATIVE (NEGATIVE); URINE UROBILINOGEN NEGATIVE mg/dL (0.2-1.0)
[2016-11-23 12:19] LABS: URINE PROTEIN 1+ (NEGATIVE)
[2016-11-23 12:20] LABS: URINE BACTERIA RARE /hpf (NONE SEEN); URINE MUCUS RARE; URINE RBC 41 /hpf (0-3); URINE WBC 91 /hpf (3-5)
--- NOTE | 2016-11-23 12:29 | PN ---
Physical Exam: SUBJECTIVE: Patient seen and examined at bedside. No acute events overnight. Pt has no complaints overnight. Pt feels well. Has vega now due to retention. No headache, cp, sob, abd pain, fever, chills. OBJECTIVE: Vital Signs Period Temp Pulse Resp BP Sys/Argueta Pulse Ox Last 24 Hr 98.0 F-99.8 F 79-85 18-20 151-160/74-88 92 GENERAL: The patient is awake, alert, and fully oriented, in no acute distress. HEAD: Normal with no signs of trauma. EYES: sclera anicteric, conjunctiva clear. No ptosis. ENT:oropharynx clear without exudates, moist mucous membranes. NECK: Trachea midline, full range of motion, supple. LUNGS: Breath sounds equal, clear to auscultation bilaterally, no wheezes, no crackles, no accessory muscle use. HEART: Regular rate and rhythm, normal S1, S2 without murmur, rub or gallop. ABDOMEN: Vega draining clear yellow urine. Soft, nontender, nondistended, normoactive bowel sounds, no guarding, no rebound, no hepatosplenomegaly, no masses. EXTREMITIES: 2+ pulses, warm, well-perfused, no edema. NEUROLOGICAL: Cranial nerves II through XII grossly intact. Normal speech, gait not observed. PSYCH: Normal mood, normal affect. SKIN: Warm, dry, normal turgor, no rashes or lesions noted Laboratory Results - last 24 hr 11/22/16 11/22/16 11/22/16 06:00 16:00 22:37 WBC 12.6 H RBC 3.37 L Hgb 10.4 L Hct 30.9 L MCV 91.7 MCH 30.9 MCHC 33.7 RDW 13.9 Plt Count 488 H MPV 6.9 L Neutrophils % 59.0 Lymphocytes % 16.0 Monocytes % 12.0 H D Eosinophils % 1.0 D Basophils % Band Neutrophils 8.0 D Metamyelocytes 4 H D Myelocytes Toxic Granulation Few Platelet Estimate Slt increased Platelet Comment No clumping noted Sodium Potassium Chloride Carbon Dioxide Anion Gap BUN Creatinine Creat Clearance w eGFR POC Glucometer 129 100 Random Glucose Calcium Total Bilirubin AST ALT Alkaline Phosphatase Total Protein Albumin 11/23/16 11/23/16 11/23/16 06:11 07:50 07:50 WBC 11.9 H RBC 3.63 Hgb 11.4 Hct 33.7 MCV 92.7 MCH 31.5 MCHC 34.0 RDW 14.2 Plt Count 550 H MPV 6.8 L Neutrophils % 69.0 Lymphocytes % 9.0 D Monocytes % 5.0 Eosinophils % 3.0 D Basophils % Linesperson Band Neutrophils 5.0 D Metamyelocytes 3 H D Myelocytes 3 H D Toxic Granulation Platelet Estimate Increased Platelet Comment No clumping noted Sodium 132 L Potassium 4.2 Chloride 95 L Carbon Dioxide 27 Anion Gap 10 BUN 10 Creatinine 0.6 Creat Clearance w eGFR > 60 POC Glucometer 101 Random Glucose 100 Calcium 8.0 L Total Bilirubin 0.9 AST 41 H D ALT 150 H D Alkaline Phosphatase 141 H Total Protein 6.0 L Albumin 2.2 L 11/23/16 11:49 WBC RBC Hgb Hct MCV MCH MCHC RDW Plt Count MPV Neutrophils % Lymphocytes % Monocytes % Eosinophils % Basophils % Band Neutrophils Metamyelocytes Myelocytes Toxic Granulation Platelet Estimate Platelet Comment Sodium Potassium Chloride Carbon Dioxide Anion Gap BUN Creatinine Creat Clearance w eGFR POC Glucometer 130 Random Glucose Calcium Total Bilirubin AST ALT Alkaline Phosphatase Total Protein Albumin Active Medications Generic Name Dose Route Start Last Admin Trade Name Freq PRN Reason Stop Dose Admin Amlodipine Besylate 5 mg 11/22/16 18:45 11/23/16 09:54 Norvasc - PO 5 mg DAILY [facility] Administration Benzocaine/Menthol 1 each 11/19/16 18:12 11/20/16 06:33 Cepacol Lozenge - MM 1 each PRN PRN Administration SORE THROAT Heparin Sodium (Porcine) 5,000 unit 11/19/16 22:00 11/23/16 09:54 Heparin - SQ 5,000 unit BID [facility] Administration Piperacillin Sod/Tazobactam Sod 50 mls @ 100 mls/hr 11/21/16 14:30 11/23/16 09: 54 Zosyn 3.375gm Ivpb (Pre-Docked) IVPB 100 mls/hr Q8H-IV [facility] Administration Protocol Insulin Aspart 1 vial 11/20/16 11:00 11/23/16 11:51 Novolog Vial Sliding Scale - SQ Not Given ACHS [facility] Protocol Tamsulosin HCl 0.4 mg 11/22/16 17:00 11/23/16 08:47 Flomax - PO 0.4 mg DAILY@0830 [facility] Administration Valsartan 160 mg 11/20/16 10:00 11/23/16 09:54 Diovan - PO 160 mg DAILY [facility] Administration ASSESSMENT/PLAN: This is an 89yF with PMH HTN, HLD presented to the ED from her PCP office with B /L PNA. She has been admitted for same. #PNA-community acquired - CT chest shows b/l PNA with mild mediastinal LAD - urine for legionella negative. Titers negative - blood Cx neg, UCx neg - WBC 15.8 - per ID, f/u sputum Cx - consult ID, pulm - on Zosyn #Transaminitis: IMPROVING -per Pulm, stop ceftriaxone. On Zosyn -per GI, Urobili is very high. CT abdomen: decreased consolidation of lower lungs, distended bladder, left ureter, left renal pelvis, small calcification/ stone in distal left ureter #Hyponatremia: likely volume down with dry lips and axillae in setting of decreased PO intake: Resolving - DW Dr. Whitley, renal consult appreciated - DC HCTZ - per nephro, monitor sodium. monitor for diarrhea, fluid restriction liberalized to 1.2L/day, f/u UA & UC, urology consult #Urinary retention - per consult: calcification likely outside collecting system and hydro likely nonphysiologic. Cont vega for 48hrs and flomax. Pt needs outpt urodynamics -pt had vega placed which initially drained 660ml #hyperglycemia -possibly 2/2 steroids -A1c-6.7% -ISS -DM diet #Mediastinal lymphadenopathy -incidental discovery on chest CT -per pulm, will need PET scan as outpt following d/c #HTN - cont diovan #HLD - home lovastatin 40mg changed to formulary lipitor 10mg as per protocol #FEN - pt not on fluids - lytes resolving - regular diet as tolerated. #DVT PPX - Heparin 5000u BID #Dispo: Admit to Med/Surg. Legionella, CAP, hyponatremia Visit type - Emergency Visit Emergency Visit: No - New Patient This patient is new to me today: No - Critical Care Critical Care patient: No - Discharge Referral Referred to [facility] Med P.C.: No
--- NOTE | 2016-11-23 14:37 | PN ---
Teaching Attending Note Name of Resident: Nash Marquez ATTENDING PHYSICIAN STATEMENT I saw and evaluated the patient. I reviewed the resident's note and discussed the case with the resident. I agree with the resident's findings and plan as documented. SUBJECTIVE: Patient worried that is havign urinary retention and might be going home with Vega catheter. OBJECTIVE: Vital Signs Temperature 99.8 F H 11/23/16 10:00 Pulse Rate 80 11/23/16 10:00 Respiratory Rate 20 11/23/16 10:00 Blood Pressure 158/74 11/23/16 10:00 O2 Sat by Pulse Oximetry (%) 92 L 11/22/16 21:00 CBCD WBC 11.9 K/mm3 (4.0-10.0) H 11/23/16 07:50 RBC 3.63 M/mm3 (3.60-5.2) 11/23/16 07:50 Hgb 11.4 GM/dL (10.7-15.3) 11/23/16 07:50 Hct 33.7 % (32.4-45.2) 11/23/16 07:50 MCV 92.7 fl (80-96) 11/23/16 07:50 MCHC 34.0 g/dl (32.0-36.0) 11/23/16 07:50 RDW 14.2 % (11.6-15.6) 11/23/16 07:50 Plt Count 550 K/MM3 (134-434) H 11/23/16 07:50 MPV 6.8 fl (7.5-11.1) L 11/23/16 07:50 CMP Sodium 132 mmol/L (136-145) L 11/23/16 07:50 Potassium 4.2 mmol/L (3.5-5.1) 11/23/16 07:50 Chloride 95 mmol/L (98-107) L 11/23/16 07:50 Carbon Dioxide 27 mmol/L (21-32) 11/23/16 07:50 Anion Gap 10 (8-16) 11/23/16 07:50 BUN 10 mg/dL (7-18) 11/23/16 07:50 Creatinine 0.6 mg/dL (0.55-1.02) 11/23/16 07:50 Creat Clearance w eGFR > 60 (>60) 11/23/16 07:50 Random Glucose 100 mg/dL (74-106) 11/23/16 07:50 Calcium 8.0 mg/dL (8.5-10.1) L 11/23/16 07:50 Total Bilirubin 0.9 mg/dL (0.2-1.0) 11/23/16 07:50 AST 41 U/L (15-37) H D 11/23/16 07:50 ALT 150 U/L (12-78) H D 11/23/16 07:50 Alkaline Phosphatase 141 U/L (45-117) H 11/23/16 07:50 Total Protein 6.0 g/dl (6.4-8.2) L 11/23/16 07:50 Albumin 2.2 g/dl (3.4-5.0) L 11/23/16 07:50 Current Medications Generic Name Dose Route Start Last Admin Trade Name Freq PRN Reason Stop Dose Admin Amlodipine Besylate 5 mg 11/22/16 18:45 11/23/16 09:54 Norvasc - PO 5 mg DAILY [facility] Administration Benzocaine/Menthol 1 each 11/19/16 18:12 11/20/16 06:33 Cepacol Lozenge - MM 1 each PRN PRN Administration SORE THROAT Heparin Sodium (Porcine) 5,000 unit 11/19/16 22:00 11/23/16 09:54 Heparin - SQ 5,000 unit BID [facility] Administration Piperacillin Sod/Tazobactam Sod 50 mls @ 100 mls/hr 11/21/16 14:30 11/23/16 09: 54 Zosyn 3.375gm Ivpb (Pre-Docked) IVPB 100 mls/hr Q8H-IV [facility] Administration Protocol Insulin Aspart 1 vial 11/20/16 11:00 11/23/16 11:51 Novolog Vial Sliding Scale - SQ Not Given ACHS [facility] Protocol Tamsulosin HCl 0.4 mg 11/22/16 17:00 11/23/16 08:47 Flomax - PO 0.4 mg DAILY@0830 [facility] Administration Valsartan 160 mg 11/20/16 10:00 11/23/16 09:54 Diovan - PO 160 mg DAILY [facility] Administration Home Medications Medication Instructions Recorded Hydrochlorothiazide [Hctz -] 12.5 mg PO DAILY 11/17/16 Lovastatin [Altoprev] 40 mg PO DAILY 11/17/16 Olmesartan Medoxomil 20 mg PO DAILY 11/17/16 Azelastine HCl 2 puff IN BID 11/18/16 Benzonatate 100 mg PO TID 11/18/16 PE: per resident's note HISTORY PROVIDED: Bilateral pneumonia TECHNIQUE: Sequential axial images were obtained from the thoracic inlet through the domes of the diaphragm. Evaluation of the lung luna demonstrates extensive consolidation within the posterior segment of the right upper lobe. Dense consolidation is also identified within the right lower lobe. The middle lobe is largely clear. Less extensive, patchy infiltrates are seen within the left upper and lower lobes. No pulmonary masses or pleural effusions are present. Examination of the mediastinum demonstrates prominent lymph nodes that include a 2.1 cm subcarinal node and a 1.5 cm precarinal node. The etiology and significance of this adenopathy is uncertain. There is no evidence of mediastinal masses or fluid collections. The heart is not significantly enlarged. Evaluation of the upper abdomen demonstrates no acute abnormalities. IMPRESSION: 1. Bilateral consolidation consistent with pneumonia. These changes are most pronounced within the right upper and lower lobes. Clinical correlation and follow-up recommended. 2. Mild mediastinal lymphadenopathy. Please see above discussion. ASSESSMENT AND PLAN: 89 y/o lady with h/o HTN, and HLP who presented with cough and was found tohave b?l infiltrates and severe hyponatremia # Acute urinary retention : vega catheter was inserted, continue flomax and will have void trial in am , urology consult appreciated . Urinary consult urinary retention and stone, hydronephrosis # Acute transaminitis trending down , repeat LFTs in am On Zosyn IV now continue as per ID ,will trend LFTs , s/p IV rocephin,and zithromax . # Bilateral consolidation consistent with pneumonia. will discontinue Rocephin since elevated transaminits ,started the patient on Zosyn IV. Negative for Legionella and strept.pneumo. ID consult for further management appreciated # Acute severe hyponatremia improving was Likely due to dehydration. continue to hold diuretic. Nephro is on the case. # HTN: Continue home meds. # Acute Leukocytosis: off steroid now, possible due to PNeumonia , trend wbc. DVT PX : Heparin sq
[2016-11-23] MEDS ORDERED: INSULIN (NOVOLOG) ASPART 100 UNITS/ML 10ML VIAL ONE (20:31)
[2016-11-24] MEDS: PIPERACILLIN/TAZOB 3.375 GM 50 ML IVPB SCH ×2 (01:13→09:56)
[2016-11-24] MEDS: INSULIN SLIDING SCALE (NOVOLOG) 1 VIAL SQ SCH ×2 (07:13→12:05)
[2016-11-24 07:35] LABS: MCH 31.9 pg (25.7-33.7); MCHC 34.8 g/dl (32.0-36.0); MEAN CELL VOLUME 91.6 fl (80-96); MEAN PLT VOLUME 6.7 fl (7.5-11.1); PLATELET COUNT 534 K/MM3 (134-434); RDW 14.4 % (11.6-15.6); WHITE BLOOD COUNT 10.2 K/mm3 (4.0-10.0)
[2016-11-24] MEDS ORDERED: INSULIN (NOVOLOG) ASPART 100 UNITS/ML 10ML VIAL ONE (08:11)
[2016-11-24] MEDS ORDERED: INSULIN DETEMIR 100 UNITS/ML MDV SQ ONE (08:11)
[2016-11-24] MEDS ORDERED: PT OWN MED DRAWER 7, Y5N ONE (08:12)
[2016-11-24] MEDS: TAMSULOSIN HCL 0.4 MG CAP.ER.24H (FP) PO SCH (08:38)
[2016-11-24 08:43] LABS: ANION GAP 7 (8-16); CALCIUM 7.9 mg/dL (8.5-10.1); CO2 27 mmol/L (21-32); CREATININE 0.6 mg/dL (0.55-1.02); GLUCOSE,RANDOM 112 mg/dL (74-106)
[2016-11-24 09:10] LABS: PLATELET ESTIMATE SLT INCREASED (NORMAL)
[2016-11-24 09:36] LABS: ALBUMIN 2.2 g/dl (3.4-5.0); ALK PHOS 111 U/L (45-117); BILIRUBIN,TOTAL 0.4 mg/dL (0.2-1.0); SGOT/AST 35 U/L (15-37); SGPT/ALT 120 U/L (12-78); TOT PROT 5.8 g/dl (6.4-8.2)
[2016-11-24] MEDS: amLODIPine BESYLATE 5 MG TABLET (FP) PO SCH (09:54)
[2016-11-24] MEDS: VALSARTAN 160 MG TABLET (UD) PO SCH (09:55)
[2016-11-24] MEDS: HEPARIN NA (PORCINE) 5,000 UNITS/ML 1ML VIAL SQ SCH (09:56)
--- NOTE | 2016-11-24 12:28 | PN ---
Progress Note, Physician History of Present Illness: pulmonary alert,no distress,-sob,mild cough - Current Medication List Current Medications: Active Medications Amlodipine Besylate (Norvasc -) 5 mg PO DAILY [facility] Last Admin: 11/24/16 09:54 Dose: 5 mg Benzocaine/Menthol (Cepacol Lozenge -) 1 each MM PRN PRN PRN Reason: SORE THROAT Last Admin: 11/20/16 06:33 Dose: 1 each Heparin Sodium (Porcine) (Heparin -) 5,000 unit SQ BID [facility] Last Admin: 11/24/16 09:56 Dose: 5,000 unit Piperacillin Sod/Tazobactam Sod (Zosyn 3.375gm Ivpb (Pre-Docked)) 50 mls @ 100 mls/hr IVPB Q8H-IV [facility] PRN Reason: Protocol Last Admin: 11/24/16 09:56 Dose: 100 mls/hr Insulin Aspart (Novolog Vial Sliding Scale -) 1 vial SQ ACHS [facility] PRN Reason: Protocol Last Admin: 11/24/16 12:05 Dose: Not Given Tamsulosin HCl (Flomax -) 0.4 mg PO DAILY@0830 [facility] Last Admin: 11/24/16 08:38 Dose: 0.4 mg Valsartan (Diovan -) 160 mg PO DAILY [facility] Last Admin: 11/24/16 09:55 Dose: 160 mg - Objective Vital Signs: Vital Signs Temperature 98.1 F 11/24/16 10:00 Pulse Rate 98 H 11/24/16 10:00 Respiratory Rate 18 11/24/16 10:00 Blood Pressure 128/65 11/24/16 10:00 O2 Sat by Pulse Oximetry (%) 94 L 11/23/16 21:00 Constitutional: Yes: Calm, Thin Eyes: Yes: WNL HENT: Yes: WNL Neck: Yes: WNL Cardiovascular: Yes: Regular Rate and Rhythm, S1, S2 Respiratory: Yes: Rales (few scattered crackles) Gastrointestinal: Yes: Normal Bowel Sounds, Soft Extremities: Yes: WNL Edema: No Labs: CBC, BMP 11/24/16 07:15 11/24/16 07:15 INR, PTT INR 1.20 (0.82-1.09) H 11/20/16 06:30 Assessment/Plan A/P Pneumonia clinically improving Elevated LFTs improving HTN Hyperlipidemia R Hydronephrosis Hyponatremia - antibiotics as per id - IVF per renal - outpt follow up of lymphadenopathy - DVT prophylaxis - monitor LFTS,NA DR CARTER
--- NOTE | 2016-11-24 12:34 | PN ---
Progress Note, Physician History of Present Illness: Pt seen and examined at bedside. She is awake and alert. THe vega was removed and she is getting a voiding trial. - Current Medication List Current Medications: Active Medications Amlodipine Besylate (Norvasc -) 5 mg PO DAILY [facility] Last Admin: 11/24/16 09:54 Dose: 5 mg Benzocaine/Menthol (Cepacol Lozenge -) 1 each MM PRN PRN PRN Reason: SORE THROAT Last Admin: 11/20/16 06:33 Dose: 1 each Heparin Sodium (Porcine) (Heparin -) 5,000 unit SQ BID [facility] Last Admin: 11/24/16 09:56 Dose: 5,000 unit Piperacillin Sod/Tazobactam Sod (Zosyn 3.375gm Ivpb (Pre-Docked)) 50 mls @ 100 mls/hr IVPB Q8H-IV [facility] PRN Reason: Protocol Last Admin: 11/24/16 09:56 Dose: 100 mls/hr Insulin Aspart (Novolog Vial Sliding Scale -) 1 vial SQ ACHS [facility] PRN Reason: Protocol Last Admin: 11/24/16 12:05 Dose: Not Given Tamsulosin HCl (Flomax -) 0.4 mg PO DAILY@0830 [facility] Last Admin: 11/24/16 08:38 Dose: 0.4 mg Valsartan (Diovan -) 160 mg PO DAILY [facility] Last Admin: 11/24/16 09:55 Dose: 160 mg - Objective Vital Signs: Vital Signs Temperature 98.1 F 11/24/16 10:00 Pulse Rate 98 H 11/24/16 10:00 Respiratory Rate 18 11/24/16 10:00 Blood Pressure 128/65 11/24/16 10:00 O2 Sat by Pulse Oximetry (%) 94 L 11/23/16 21:00 Constitutional: Yes: Calm Eyes: Yes: Conjunctiva Clear HENT: Yes: Atraumatic Neck: Yes: Supple Cardiovascular: Yes: S1, S2 Respiratory: Yes: CTA Bilaterally Gastrointestinal: Yes: Soft Genitourinary: Yes: WNL Musculoskeletal: Yes: WNL Edema: No Neurological: Yes: Oriented Psychiatric: Yes: Oriented Labs: CBC, BMP 11/24/16 07:15 11/24/16 07:15 INR, PTT INR 1.20 (0.82-1.09) H 11/20/16 06:30 Problem List - Problems (1) Hyponatremia Code(s): E87.1 - HYPO-OSMOLALITY AND HYPONATREMIA Assessment/Plan Current Medications Generic Name Dose Route Start Last Admin Trade Name Vaibhav PRN Reason Stop Dose Admin Amlodipine Besylate 5 mg 11/22/16 18:45 11/24/16 09:54 Norvasc - PO 5 mg DAILY [facility] Administration Benzocaine/Menthol 1 each 11/19/16 18:12 11/20/16 06:33 Cepacol Lozenge - MM 1 each PRN PRN Administration SORE THROAT Heparin Sodium (Porcine) 5,000 unit 11/19/16 22:00 11/24/16 09:56 Heparin - SQ 5,000 unit BID [facility] Administration Piperacillin Sod/Tazobactam Sod 50 mls @ 100 mls/hr 11/21/16 14:30 11/24/16 09: 56 Zosyn 3.375gm Ivpb (Pre-Docked) IVPB 100 mls/hr Q8H-IV [facility] Administration Protocol Insulin Aspart 1 vial 11/20/16 11:00 11/24/16 12:05 Novolog Vial Sliding Scale - SQ Not Given ACHS [facility] Protocol Tamsulosin HCl 0.4 mg 11/22/16 17:00 11/24/16 08:38 Flomax - PO 0.4 mg DAILY@0830 [facility] Administration Valsartan 160 mg 11/20/16 10:00 11/24/16 09:55 Diovan - PO 160 mg DAILY [facility] Administration Impression 1. hyponatremia 2. PNA 3. mediastinal lymphadenopathy 4. HTN 5. hyperlipidemia Plan - sodium continues to improve - will give a salt tab - voiding trial - will need outpt follow up - encourage PO intake - recommend not restarting hctz - mediastinal lymphadenopathy should be followed Dr Whitley
[2016-11-24] MEDS ORDERED: SODIUM CHLORIDE 1 GM TABLET PO ONE (13:00)
[2016-11-24 14:11] LABS: MYCOPLASMA PNEUMONIAE,IG G AB <100 U/mL (0-99)
--- NOTE | 2016-11-24 15:12 | DS ---
Physical Exam: SUBJECTIVE: Patient seen and examined OBJECTIVE: Vital Signs Period Temp Pulse Resp BP Sys/Argueta Pulse Ox Last 24 Hr 97.7 F-99.4 F 82-98 18-18 128-146/65-72 94 PHYSICAL EXAM GENERAL: The patient is awake, alert, and fully oriented, in no acute distress. HEAD: Normal with no signs of trauma. EYES: sclera anicteric, conjunctiva clear. No ptosis. ENT:oropharynx clear without exudates, moist mucous membranes. NECK: Trachea midline, full range of motion, supple. LUNGS: Breath sounds equal, clear to auscultation bilaterally, no wheezes, no crackles, no accessory muscle use. HEART: Regular rate and rhythm, normal S1, S2 without murmur, rub or gallop. ABDOMEN: Vega draining clear yellow urine. Soft, nontender, nondistended, normoactive bowel sounds, no guarding, no rebound, no hepatosplenomegaly, no masses. EXTREMITIES: 2+ pulses, warm, well-perfused, no edema. NEUROLOGICAL: Cranial nerves II through XII grossly intact. Normal speech, gait not observed. PSYCH: Normal mood, normal affect. SKIN: Warm, dry, normal turgor, no rashes or lesions noted LABS Laboratory Results - last 24 hr 11/19/16 11/23/16 11/23/16 05:30 16:04 21:16 WBC RBC Hgb Hct MCV MCH MCHC RDW Plt Count MPV Neutrophils % Lymphocytes % Monocytes % Band Neutrophils Myelocytes Differential Comment Platelet Estimate Sodium Potassium Chloride Carbon Dioxide Anion Gap BUN Creatinine Creat Clearance w eGFR POC Glucometer 132 120 Random Glucose Calcium Total Bilirubin AST ALT Alkaline Phosphatase Total Protein Albumin M.pneumoniae IgG Titer <100 M.pneumoniae IgM Titer <770 11/24/16 11/24/16 11/24/16 07:12 07:15 07:15 WBC 10.2 H RBC 3.55 L Hgb 11.3 Hct 32.5 MCV 91.6 MCH 31.9 MCHC 34.8 RDW 14.4 Plt Count 534 H MPV 6.7 L Neutrophils % 71.0 Lymphocytes % 18.0 D Monocytes % 6.0 Band Neutrophils 1.0 D Myelocytes 4 H D Differential Comment Manual diff done Platelet Estimate Slt increased Sodium 133 L Potassium 4.1 Chloride 99 Carbon Dioxide 27 Anion Gap 7 L BUN 9 Creatinine 0.6 Creat Clearance w eGFR Y POC Glucometer 120 Random Glucose 112 H Calcium 7.9 L Total Bilirubin 0.4 D AST 35 ALT 120 H Alkaline Phosphatase 111 D Total Protein 5.8 L Albumin 2.2 L M.pneumoniae IgG Titer M.pneumoniae IgM Titer 11/24/16 11/24/16 07:15 11:48 WBC RBC Hgb Hct MCV MCH MCHC RDW Plt Count MPV Neutrophils % Lymphocytes % Monocytes % Band Neutrophils Myelocytes Differential Comment Platelet Estimate Sodium Cancelled Potassium Cancelled Chloride Cancelled Carbon Dioxide Cancelled Anion Gap Cancelled BUN Cancelled Creatinine Cancelled Creat Clearance w eGFR Cancelled POC Glucometer 106 Random Glucose Cancelled Calcium Cancelled Total Bilirubin Cancelled AST Cancelled ALT Cancelled Alkaline Phosphatase Cancelled Total Protein Cancelled Albumin Cancelled M.pneumoniae IgG Titer M.pneumoniae IgM Titer HOSPITAL COURSE: Date of Admission:11/17/16 Date of Discharge: 11/24/16 This is an 89yF with PMH HTN, HLD presented to the ED from her PCP office with B /L PNA. She has been admitted for same. The patient was initially found to have b/l PNA as well as hyponatremia. Pt was put on zithromax and rocephin for the PNA. She completed her zithromax course, but rocephin was discontinued due to transaminitis, which resolved after the drug was stopped. Pt was placed on Zosyn, and is being discharged with Ceftin. The patient had a negative workup for Legionella as well as negative blood and urine cultures. The patient had incidental mediastinal lymph nodes, which will be worked up outpatient. The patient was admitted to the hospital with hyponatremia, which was corrected with fluids. Initially, the correction rate was too fast, but adjustment of the fluid infusions and diet resolved that problem, and the patient's sodium was normalized gradually. The patient developed urinary retention in the hospital necessitating placement of a vega. Voiding trial was successful and the patient will be seeing urology outpatient for further workup. The patient had a mild case of hyperglycemia which was thought to be secondary to steroids. A1c was 6.7%, so the patient was given a diabetic diet and ISS. She should follow up with her PCP outpt. The patient's HTN was managed with home meds. HLD was treated with lipitor. The patient is stable for discharge Minutes to complete discharge: 45 <Nash Marquez - Last Filed: 11/24/16 18:33> Physical Exam: SUBJECTIVE: Patient seen and examined Patient's voiding trial was successful. needs to follow up as an outpatient with . (urologist) LIver enzymes were elevated most like due to IV antibiotic, started to trend down, Needs to follow up with her primary care doctor. <Camron Kirkpatrick - Last Filed: 11/25/16 14:48> Discharge Summary Reason For Visit: PNEUMONIA Current Active Problems Elevated LFTs (Acute) Hyponatremia (Acute) Pneumonia (Acute) Urinary retention (Acute) Gallstones (Chronic) - Home Medications Comprehensive Discharge Medication List: Ambulatory Orders Azelastine HCl 2 puff IN BID 11/18/16 Amlodipine Besylate [Norvasc -] 5 mg PO DAILY tablet 11/24/16 Cefuroxime Axetil [Ceftin -] 500 mg PO Q12H #10 tablet 11/24/16 Tamsulosin HCl [Flomax -] 0.4 mg PO DAILY@0830 #20 cap 11/24/16 <Nash Marquez - Last Filed: 11/24/16 18:33> - Home Medications Comprehensive Discharge Medication List: Ambulatory Orders Azelastine HCl 2 puff IN BID 11/18/16 Amlodipine Besylate [Norvasc -] 5 mg PO DAILY #20 tablet 11/24/16 Cefuroxime Axetil [Ceftin -] 500 mg PO Q12H #10 tablet 11/24/16 Tamsulosin HCl [Flomax -] 0.4 mg PO DAILY@0830 #20 cap 11/24/16 <Camron Kirkpatrick - Last Filed: 11/25/16 14:48> Condition: Improved - Instructions Diet, Activity, Other Instructions: You need to follow up with the following doctors: -Dr. Camarena, primary care -Dr. Agustin, pulmonology. Multiple nodules were discovered in your lungs. These need to be assessed. -Dr. Romero, urology. You need further workup. Please take the medications prescribed to you as directed. Continue your inhaler as needed. You will need to repeat your liver enzymes. Your Levastatin has been held due to elevated liver enzymes. Before restarting the medication, please check with your primary care doctor that your liver enzymes are normal. Your hydrochlorothiazide was discontinued. Please do not restart this medication as it will deplete your sodium. If your symptoms worsen, or if you develop new symptoms, please return to the emergency department. Referrals: Gene Camarena MD [Primary Care Provider] - 1 Week Eric Romero MD., [Staff Physician] - 1 Week Derek Agustin MD, MD [Staff Physician] - 1 Week Disposition: HOME - Discharge Referral [facility]erred to [facility] No <Nash Marquez - Last Filed: 11/24/16 18:33> This patient is new to me today: No Emergency Visit: Yes ED Registration Date: 11/17/16 Care time: The patient presented to the Emergency Department on the above date and was hospitalized for further evaluation of their emergent condition. Critical Care patient: No <Camron Kirkpatrick - Last Filed: 11/25/16 14:48>
[2016-11-24 15:58] VITALS: BP 138/75; PULSE 87; TEMP 98
--- NOTE | 2016-11-24 21:13 | PN ---
Teaching Attending Note Name of Resident: Nash Marquez ATTENDING PHYSICIAN STATEMENT I saw and evaluated the patient. I reviewed the resident's note and discussed the case with the resident. I agree with the resident's findings and plan as documented. SUBJECTIVE: Patient is feeling better, will be going home today, was able to void post vega removal today. Only 59cc of urine (by Bladder scan) OBJECTIVE: Vital Signs Temperature 98.0 F 11/24/16 14:56 Pulse Rate 87 11/24/16 14:56 Respiratory Rate 18 11/24/16 14:56 Blood Pressure 138/75 11/24/16 14:56 O2 Sat by Pulse Oximetry (%) 96 11/24/16 09:00 CBCD WBC 10.2 K/mm3 (4.0-10.0) H 11/24/16 07:15 RBC 3.55 M/mm3 (3.60-5.2) L 11/24/16 07:15 Hgb 11.3 GM/dL (10.7-15.3) 11/24/16 07:15 Hct 32.5 % (32.4-45.2) 11/24/16 07:15 MCV 91.6 fl (80-96) 11/24/16 07:15 MCHC 34.8 g/dl (32.0-36.0) 11/24/16 07:15 RDW 14.4 % (11.6-15.6) 11/24/16 07:15 Plt Count 534 K/MM3 (134-434) H 11/24/16 07:15 MPV 6.7 fl (7.5-11.1) L 11/24/16 07:15 CMP Sodium 133 mmol/L (136-145) L 11/24/16 07:15 Potassium 4.1 mmol/L (3.5-5.1) 11/24/16 07:15 Chloride 99 mmol/L (98-107) 11/24/16 07:15 Carbon Dioxide 27 mmol/L (21-32) 11/24/16 07:15 Anion Gap 7 (8-16) L 11/24/16 07:15 BUN 9 mg/dL (7-18) 11/24/16 07:15 Creatinine 0.6 mg/dL (0.55-1.02) 11/24/16 07:15 Creat Clearance w eGFR Y 11/24/16 07:15 Random Glucose 112 mg/dL (74-106) H 11/24/16 07:15 Calcium 7.9 mg/dL (8.5-10.1) L 11/24/16 07:15 Total Bilirubin 0.4 mg/dL (0.2-1.0) D 11/24/16 07:15 AST 35 U/L (15-37) 11/24/16 07:15 ALT 120 U/L (12-78) H 11/24/16 07:15 Alkaline Phosphatase 111 U/L (45-117) D 11/24/16 07:15 Total Protein 5.8 g/dl (6.4-8.2) L 11/24/16 07:15 Albumin 2.2 g/dl (3.4-5.0) L 11/24/16 07:15 Home Medications Medication Instructions Recorded Azelastine HCl 2 puff IN BID 11/18/16 Amlodipine Besylate [Norvasc -] 5 mg PO DAILY #20 tablet 11/24/16 Cefuroxime Axetil [Ceftin -] 500 mg PO Q12H #10 tablet 11/24/16 Tamsulosin HCl [Flomax -] 0.4 mg PO DAILY@0830 #20 cap 11/24/16 PE: per resident's note HISTORY PROVIDED: Bilateral pneumonia TECHNIQUE: Sequential axial images were obtained from the thoracic inlet through the domes of the diaphragm. Evaluation of the lung luna demonstrates extensive consolidation within the posterior segment of the right upper lobe. Dense consolidation is also identified within the right lower lobe. The middle lobe is largely clear. Less extensive, patchy infiltrates are seen within the left upper and lower lobes. No pulmonary masses or pleural effusions are present. Examination of the mediastinum demonstrates prominent lymph nodes that include a 2.1 cm subcarinal node and a 1.5 cm precarinal node. The etiology and significance of this adenopathy is uncertain. There is no evidence of mediastinal masses or fluid collections. The heart is not significantly enlarged. Evaluation of the upper abdomen demonstrates no acute abnormalities. IMPRESSION: 1. Bilateral consolidation consistent with pneumonia. These changes are most pronounced within the right upper and lower lobes. Clinical correlation and follow-up recommended. 2. Mild mediastinal lymphadenopathy. Please see above discussion. ASSESSMENT AND PLAN: 89 y/o lady with h/o HTN, and HLP who presented with cough and was found tohave b?l infiltrates and severe hyponatremia # Acute urinary retention s/p vega catheter removal today , aptient was able to urinate. Patient will follow with in am for further w/u and evualation per urologist. s/p Urinary consult urinary retention and stone, hydronephrosis # Acute transaminitis trending down , repeat LFTs in am On Zosyn IV now continue as per ID ,will trend LFTs , s/p IV rocephin,and zithromax . # Bilateral consolidation consistent with pneumonia. will discontinue Rocephin since elevated transaminits ,started the patient on Zosyn IV. Negative for Legionella and strept.pneumo. will discharge patient on ceftin x 5 more days. # Acute severe hyponatremia improved was Likely due to dehydration. continue to hold diuretic. Nephro is on the case. # HTN: Continue home meds. # Acute Leukocytosis: improved , off steroid now, possible due to PNeumonia , trend wbc. DVT PX : Heparin sq
== END 2016-11-24 16:26 | disposition home or self-care (01) | DRG 640 ==
LOC: FER 13:00 → FM/S 17:01 → JICU 11-18 07:35 → J5S 11-19 17:46
PROVIDERS: ADMIT Internal Medicine; ATTEND Internal Medicine
DX: E87.1 Hypo-osmolality and hyponatremia (principal); J18.9 Pneumonia, unspecified organism; N13.30 Unspecified hydronephrosis; I10 Essential (primary) hypertension; E78.5 Hyperlipidemia, unspecified; R33.9 Retention of urine, unspecified; D72.829 Elevated white blood cell count, unspecified; E86.0 Dehydration; R59.1 Generalized enlarged lymph nodes
CPT/HCPCS: 36415; 71010-TC; 71020-TC; 71250-TC; 74177-TC; 76700-TC; 80048; 80053; 81003; 81015; 82248; 82570; 83036; 83735; 83930; 83935; 84100; 84295; 84300; 85025; 85027; 85610; 85730; 86713; 86738; 87040; 87086; 87899; 93005; 97116-GP; 97161-GP; 99285-25; J1644